=== PATIENT | female | born 1975 ===

== ENCOUNTER 2018-02-27 13:06 | Inpatient (IN) ==
[2018-02-27] MEDS ORDERED: DEXTROSE 50% 25 GM/50 ML VIAL IV PRN (15:39)
[2018-02-27] MEDS ORDERED: traZODone 50 MG TABLET PO PRN (15:39)
[2018-02-27] MEDS ORDERED: GLUCAGON 1 MG VIAL IM PRN (15:39)
[2018-02-27] MEDS: ENOXAPARIN 40 MG/0.4 ML SYRINGE SUBCUT SCH (16:43)
[2018-02-27] MEDS: INSULIN REGULAR 100 UNIT/ML SUBCUT SCH ×2 (16:44→20:21)
[2018-02-27 17:08] LABS: % Iron Saturation 5.8 % (18-50)
[2018-02-27 18:45] LABS: Apearance,Urine Slightly Hazy (Clear); Bacteria,Urine Occasional /HPF (Few); Bilirubin,Urine Negative (Negative); Blood, Urine Small mg/dL (Negative); Glucose,Urine (UA) 50 mg/dL (Negative); Hyaline Casts,Urine 3 /LPF (0-3); Ketones,Urine Negative (Negative); Mucus,Urine Occasional /LPF (Occasional); Nitrite,Urine Negative (Negative); Protein,Urine >=500 MG/DL; RBC,Urine 9 /HPF (0-4); Squamous Epithelial Cell,Urine Occasional /HPF (0-10); Urine Color Yellow (Yellow); Urine Specific Gravity 1.011 (1.001-1.035); Urine Urobilinogen < 2.0 EU/DL (0.2-1.0); WBC,Urine 1 /HPF (0-6)
[2018-02-27] MEDS: SIMVASTATIN 10 MG TABLET PO SCH (20:22)
[2018-02-28 06:27] LABS: Calcium 7.7 MG/DL (8.5-10.1); Osmolality,Calculated 280.5 MOS/KG (273-304); Potassium 3.7 MMOL/L (3.5-5.1)
[2018-02-28] MEDS: CLINDAMYCIN INJ 600 MG in PREMIX 1 EACH IV SCH ×2 (09:12→16:23)
[2018-02-28] MEDS: LISINOPRIL 10 MG TABLET PO SCH (09:12)
[2018-02-28] MEDS: INSULIN REGULAR 100 UNIT/ML SUBCUT SCH ×4 (09:13→20:56)
[2018-02-28] MEDS ORDERED: MIDAZOLAM 2 MG/2 ML VIAL ONE (11:05)
[2018-02-28] MEDS ORDERED: fentaNYL 100 MCG/2 ML VIAL ONE (11:05)
[2018-02-28] MEDS: ENOXAPARIN 40 MG/0.4 ML SYRINGE SUBCUT SCH (16:23)
[2018-02-28] MEDS: SIMVASTATIN 10 MG TABLET PO SCH (20:54)
[2018-03-01] MEDS: CLINDAMYCIN INJ 600 MG in PREMIX 1 EACH IV SCH ×4 (00:10→22:36)
[2018-03-01] MEDS: INSULIN REGULAR 100 UNIT/ML SUBCUT SCH ×4 (08:37→22:43)
[2018-03-01] MEDS: LISINOPRIL 10 MG TABLET PO SCH (10:16)
[2018-03-01] MEDS: ENOXAPARIN 40 MG/0.4 ML SYRINGE SUBCUT SCH (17:09)
[2018-03-01] MEDS: SIMVASTATIN 10 MG TABLET PO SCH (22:36)
[2018-03-02 05:45] LABS: Basophils % 0.5 % (0.0-0.8); Eosinophils # 0.1 10*3/uL (0.0-0.87); Eosinophils % 0.8 % (0.00-10.9); Hematocrit 21.7 VOL% (35.7-47.0); Hemoglobin 7.2 GM/DL (12.0-16.0); Immature Granulocytes % 0.6 %; Immature Granulocytes Absolute 0.05 #; Lymphocytes # 1.5 10*3/uL (1.4-4.0); Lymphocytes % 17.6 % (21.3-54.2); Mean Corpuscular HGB Conc 33.2 GM/DL (32-36); Mean Corpuscular Hemoglobin 29 PG (27-34); Mean Corpuscular Volume 87.1 FL (87-102); Mean Platelet Volume 9.5 FL (9.6-12.0); Monocytes # 1.1 10*3/uL (0.11-0.8); Monocytes % 13.1 % (1.7-12.7); NRBC # 0.02 10*3/uL; Neutrophils # 5.6 10*3/uL (1.4-7.4); Neutrophils % 67.4 % (38.7-73.9); Platelet Count 303 T/CUMM (130-400); Red Blood Count 2.49 MC/CUMM (3.8-5.5); Red Cell Distribution Width 12.3 % (9.3-17.3); White Blood Count 8.3 T/CUMM (4-12)
[2018-03-02 06:22] LABS: Calcium 7.9 MG/DL (8.5-10.1); Osmolality,Calculated 280.7 MOS/KG (273-304)
[2018-03-02 06:23] LABS: Potassium 4.3 MMOL/L (3.5-5.1)
[2018-03-02] MEDS: INSULIN REGULAR 100 UNIT/ML SUBCUT SCH ×4 (07:47→20:43)
[2018-03-02] MEDS: CLINDAMYCIN INJ 600 MG in PREMIX 1 EACH IV SCH ×3 (09:52→23:48)
[2018-03-02] MEDS: LISINOPRIL 10 MG TABLET PO SCH (09:52)
[2018-03-02] MEDS: cefTRIAXone 1,000 MG in SYRINGE 1 EACH IV SCH (14:23)
[2018-03-02] MEDS: IRON SUCROSE 200 MG in SODIUM CHLORIDE 0.9% 100 ML IV SCH (14:23)
[2018-03-02] MEDS: ONDANSETRON 4 MG/2 ML VIAL IV PRN (14:34)
[2018-03-02] MEDS: ENOXAPARIN 40 MG/0.4 ML SYRINGE SUBCUT SCH (15:15)
[2018-03-02] MEDS: SIMVASTATIN 10 MG TABLET PO SCH (20:43)
[2018-03-03 07:11] LABS: Protein/Creatinine Ratio,Urine 8.2 RATIO
[2018-03-03] MEDS: INSULIN REGULAR 100 UNIT/ML SUBCUT SCH ×4 (08:27→21:07)
[2018-03-03] MEDS: CLINDAMYCIN INJ 600 MG in PREMIX 1 EACH IV SCH ×3 (08:28→23:24)
[2018-03-03 08:31] LABS: Basophils % 0.3 % (0.0-0.8); Eosinophils # 0.1 10*3/uL (0.0-0.87); Hematocrit 23.1 VOL% (35.7-47.0); Hemoglobin 7.8 GM/DL (12.0-16.0); Immature Granulocytes % 0.6 %; Immature Granulocytes Absolute 0.04 #; Lymphocytes # 0.8 10*3/uL (1.4-4.0); Lymphocytes % 13.4 % (21.3-54.2); Mean Corpuscular HGB Conc 33.8 GM/DL (32-36); Mean Corpuscular Hemoglobin 29 PG (27-34); Mean Corpuscular Volume 85.9 FL (87-102); Monocytes # 0.7 10*3/uL (0.11-0.8); Monocytes % 11.2 % (1.7-12.7); Neutrophils # 4.6 10*3/uL (1.4-7.4); Neutrophils % 73.5 % (38.7-73.9); Platelet Count 320 T/CUMM (130-400); Red Blood Count 2.69 MC/CUMM (3.8-5.5); Red Cell Distribution Width 12.1 % (9.3-17.3); White Blood Count 6.3 T/CUMM (4-12)
[2018-03-03 08:37] LABS: INR 0.9; PT Patient Result 9.8 SECS
[2018-03-03] MEDS: IRON SUCROSE 200 MG in SODIUM CHLORIDE 0.9% 100 ML IV SCH (08:59)
[2018-03-03 09:11] LABS: Calcium 8.1 MG/DL (8.5-10.1); Osmolality,Calculated 280.7 MOS/KG (273-304); Potassium 4.4 MMOL/L (3.5-5.1)
[2018-03-03] MEDS: ALBUMIN 25% 25 GM in PREMIX 1 EACH IV SCH ×2 (14:32→21:11)
[2018-03-03] MEDS: cefTRIAXone 1,000 MG in SYRINGE 1 EACH IV SCH (16:17)
[2018-03-03] MEDS: ENOXAPARIN 40 MG/0.4 ML SYRINGE SUBCUT SCH (16:18)
[2018-03-03] MEDS: SIMVASTATIN 10 MG TABLET PO SCH (21:07)
[2018-03-04] MEDS: ALBUMIN 25% 25 GM in PREMIX 1 EACH IV SCH ×3 (05:31→20:58)
[2018-03-04 07:48] LABS: Basophils % 0.4 % (0.0-0.8); Eosinophils % 0.4 % (0.00-10.9); Hematocrit 21.1 VOL% (35.7-47.0); Immature Granulocytes % 0.6 %; Immature Granulocytes Absolute 0.04 #; Lymphocytes % 14.1 % (21.3-54.2); Mean Corpuscular HGB Conc 33.2 GM/DL (32-36); Mean Corpuscular Hemoglobin 29 PG (27-34); Mean Corpuscular Volume 87.2 FL (87-102); Mean Platelet Volume 9.2 FL (9.6-12.0); Monocytes # 0.8 10*3/uL (0.11-0.8); Monocytes % 11.4 % (1.7-12.7); Neutrophils # 4.9 10*3/uL (1.4-7.4); Neutrophils % 73.1 % (38.7-73.9); Platelet Count 271 T/CUMM (130-400); Red Blood Count 2.42 MC/CUMM (3.8-5.5); Red Cell Distribution Width 12.3 % (9.3-17.3); White Blood Count 6.8 T/CUMM (4-12)
[2018-03-04 08:21] LABS: Albumin 2.5 G/DL (3.4-5.0); Calcium 7.8 MG/DL (8.5-10.1); Osmolality,Calculated 278.8 MOS/KG (273-304); Potassium 4.1 MMOL/L (3.5-5.1)
[2018-03-04] MEDS: CLINDAMYCIN INJ 600 MG in PREMIX 1 EACH IV SCH ×2 (08:57→15:24)
[2018-03-04] MEDS: INSULIN REGULAR 100 UNIT/ML SUBCUT SCH ×4 (08:57→21:07)
[2018-03-04] MEDS: IRON SUCROSE 200 MG in SODIUM CHLORIDE 0.9% 100 ML IV SCH (10:16)
[2018-03-04] MEDS ORDERED: GLUCAGON 1 MG VIAL IM PRN (11:04)
[2018-03-04] MEDS ORDERED: DEXTROSE 50% 25 GM/50 ML VIAL IV PRN (11:04)
[2018-03-04] MEDS: cefTRIAXone 1,000 MG in SYRINGE 1 EACH IV SCH (15:23)
[2018-03-04] MEDS: ENOXAPARIN 30 MG/0.3 ML SYRINGE SUBCUT SCH (15:25)
[2018-03-04] MEDS: SIMVASTATIN 10 MG TABLET PO SCH (20:58)
[2018-03-05] MEDS: CLINDAMYCIN INJ 600 MG in PREMIX 1 EACH IV SCH ×4 (00:27→23:24)
[2018-03-05] MEDS: ALBUMIN 25% 25 GM in PREMIX 1 EACH IV SCH ×3 (05:50→20:45)
[2018-03-05 07:27] LABS: Basophils % 0.5 % (0.0-0.8); Eosinophils # 0.1 10*3/uL (0.0-0.87); Hematocrit 20.9 VOL% (35.7-47.0); Hemoglobin 7.2 GM/DL (12.0-16.0); Immature Granulocytes % 0.6 %; Immature Granulocytes Absolute 0.05 #; Lymphocytes # 0.9 10*3/uL (1.4-4.0); Lymphocytes % 11.4 % (21.3-54.2); Mean Corpuscular HGB Conc 34.4 GM/DL (32-36); Mean Corpuscular Hemoglobin 29 PG (27-34); Mean Corpuscular Volume 84.6 FL (87-102); Mean Platelet Volume 8.9 FL (9.6-12.0); Monocytes # 0.9 10*3/uL (0.11-0.8); Monocytes % 10.9 % (1.7-12.7); Neutrophils # 6.2 10*3/uL (1.4-7.4); Neutrophils % 75.6 % (38.7-73.9); Platelet Count 292 T/CUMM (130-400); Red Blood Count 2.47 MC/CUMM (3.8-5.5); Red Cell Distribution Width 12.4 % (9.3-17.3); White Blood Count 8.2 T/CUMM (4-12)
[2018-03-05 07:56] LABS: Albumin 2.9 G/DL (3.4-5.0); Calcium 7.9 MG/DL (8.5-10.1); Osmolality,Calculated 279.8 MOS/KG (273-304)
[2018-03-05] MEDS: INSULIN REGULAR 100 UNIT/ML SUBCUT SCH ×4 (08:38→21:49)
[2018-03-05] MEDS: IRON SUCROSE 200 MG in SODIUM CHLORIDE 0.9% 100 ML IV SCH (09:47)
[2018-03-05] MEDS: miSOPROStol 200 MCG TABLET PO SCH ×3 (12:46→20:44)
[2018-03-05] MEDS: cefTRIAXone 1,000 MG in SYRINGE 1 EACH IV SCH (14:29)
[2018-03-05] MEDS: ONDANSETRON 4 MG/2 ML VIAL IV PRN (14:48)
[2018-03-05] MEDS: ENOXAPARIN 30 MG/0.3 ML SYRINGE SUBCUT SCH (17:28)
[2018-03-05] MEDS: BISACODYL 5 MG TABLET PO PRN (17:30)
[2018-03-05] MEDS: SIMVASTATIN 10 MG TABLET PO SCH (20:45)
[2018-03-06] MEDS: ALBUMIN 25% 25 GM in PREMIX 1 EACH IV SCH (05:20)
[2018-03-06 06:06] LABS: Basophils % 0.4 % (0.0-0.8); Eosinophils % 0.4 % (0.00-10.9); Hemoglobin 7.5 GM/DL (12.0-16.0); Immature Granulocytes Absolute 0.09 #; Lymphocytes # 1.3 10*3/uL (1.4-4.0); Mean Corpuscular HGB Conc 34.1 GM/DL (32-36); Mean Corpuscular Hemoglobin 29 PG (27-34); Mean Corpuscular Volume 84.9 FL (87-102); Mean Platelet Volume 9.1 FL (9.6-12.0); Monocytes # 0.9 10*3/uL (0.11-0.8); Monocytes % 10.3 % (1.7-12.7); Neutrophils # 6.7 10*3/uL (1.4-7.4); Neutrophils % 73.9 % (38.7-73.9); Platelet Count 348 T/CUMM (130-400); Red Blood Count 2.59 MC/CUMM (3.8-5.5); Red Cell Distribution Width 12.6 % (9.3-17.3)
[2018-03-06 06:38] LABS: % Iron Saturation 29.3 % (18-50); Albumin 2.7 G/DL (3.4-5.0); Calcium 7.7 MG/DL (8.5-10.1); Potassium 3.7 MMOL/L (3.5-5.1)
[2018-03-06] MEDS: CLINDAMYCIN INJ 600 MG in PREMIX 1 EACH IV SCH ×3 (06:48→22:35)
[2018-03-06] MEDS: INSULIN REGULAR 100 UNIT/ML SUBCUT SCH ×4 (09:15→20:03)
[2018-03-06] MEDS: IRON SUCROSE 200 MG in SODIUM CHLORIDE 0.9% 100 ML IV SCH (09:16)
[2018-03-06] MEDS: miSOPROStol 200 MCG TABLET PO SCH ×4 (09:17→20:03)
[2018-03-06] MEDS: cefTRIAXone 1,000 MG in SYRINGE 1 EACH IV SCH (15:02)
[2018-03-06] MEDS: ENOXAPARIN 30 MG/0.3 ML SYRINGE SUBCUT SCH (16:50)
[2018-03-06] MEDS: SIMVASTATIN 10 MG TABLET PO SCH (20:03)
[2018-03-07 03:28] LABS: Basophils % 0.3 % (0.0-0.8); Eosinophils % 0.2 % (0.00-10.9); Hemoglobin 7.6 GM/DL (12.0-16.0); Immature Granulocytes % 1.2 %; Immature Granulocytes Absolute 0.13 #; Lymphocytes # 1.7 10*3/uL (1.4-4.0); Lymphocytes % 16.1 % (21.3-54.2); Mean Corpuscular HGB Conc 34.5 GM/DL (32-36); Mean Corpuscular Hemoglobin 29 PG (27-34); Mean Corpuscular Volume 84.9 FL (87-102); Mean Platelet Volume 8.9 FL (9.6-12.0); Monocytes # 1.2 10*3/uL (0.11-0.8); Neutrophils # 7.6 10*3/uL (1.4-7.4); Neutrophils % 71.2 % (38.7-73.9); Platelet Count 344 T/CUMM (130-400); Red Blood Count 2.59 MC/CUMM (3.8-5.5); Red Cell Distribution Width 12.5 % (9.3-17.3); White Blood Count 10.6 T/CUMM (4-12)
[2018-03-07 03:58] LABS: Calcium 8.2 MG/DL (8.5-10.1); Osmolality,Calculated 276.1 MOS/KG (273-304); Potassium 3.3 MMOL/L (3.5-5.1)
[2018-03-07] MEDS: CLINDAMYCIN INJ 600 MG in PREMIX 1 EACH IV SCH ×3 (08:00→22:36)
[2018-03-07] MEDS: INSULIN REGULAR 100 UNIT/ML SUBCUT SCH ×4 (08:02→20:07)
[2018-03-07] MEDS: miSOPROStol 200 MCG TABLET PO SCH ×4 (08:03→20:09)
[2018-03-07] MEDS: cefTRIAXone 1,000 MG in SYRINGE 1 EACH IV SCH (14:45)
[2018-03-07] MEDS: ENOXAPARIN 30 MG/0.3 ML SYRINGE SUBCUT SCH (16:25)
[2018-03-07] MEDS: SIMVASTATIN 10 MG TABLET PO SCH (20:09)
[2018-03-08 07:07] LABS: Basophils % 0.2 % (0.0-0.8); Eosinophils # 0.1 10*3/uL (0.0-0.87); Eosinophils % 0.8 % (0.00-10.9); Hematocrit 24.2 VOL% (35.7-47.0); Immature Granulocytes % 1.2 %; Immature Granulocytes Absolute 0.15 #; Lymphocytes # 1.7 10*3/uL (1.4-4.0); Lymphocytes % 13.5 % (21.3-54.2); Mean Corpuscular HGB Conc 33.1 GM/DL (32-36); Mean Corpuscular Hemoglobin 29 PG (27-34); Mean Corpuscular Volume 87.1 FL (87-102); Mean Platelet Volume 8.7 FL (9.6-12.0); Monocytes # 1.2 10*3/uL (0.11-0.8); Monocytes % 9.7 % (1.7-12.7); Neutrophils # 9.3 10*3/uL (1.4-7.4); Neutrophils % 74.6 % (38.7-73.9); Platelet Count 389 T/CUMM (130-400); Red Blood Count 2.78 MC/CUMM (3.8-5.5); Red Cell Distribution Width 12.5 % (9.3-17.3); White Blood Count 12.4 T/CUMM (4-12)
[2018-03-08 07:38] LABS: Calcium 8.5 MG/DL (8.5-10.1); Potassium 3.9 MMOL/L (3.5-5.1)
[2018-03-08] MEDS: miSOPROStol 200 MCG TABLET PO SCH ×3 (08:07→17:50)
[2018-03-08] MEDS: CLINDAMYCIN INJ 600 MG in PREMIX 1 EACH IV SCH ×3 (08:10→23:06)
[2018-03-08] MEDS: INSULIN REGULAR 100 UNIT/ML SUBCUT SCH ×4 (08:30→20:11)
[2018-03-08] MEDS: cefTRIAXone 1,000 MG in SYRINGE 1 EACH IV SCH (14:49)
[2018-03-08] MEDS: ENOXAPARIN 30 MG/0.3 ML SYRINGE SUBCUT SCH (15:04)
[2018-03-08] MEDS: SIMVASTATIN 10 MG TABLET PO SCH (20:09)
[2018-03-08] MEDS: miSOPROStol 100 MCG TABLET PO SCH (20:11)
[2018-03-09 05:23] LABS: Basophils # 0.1 10*3/uL (0.0-0.2); Basophils % 0.4 % (0.0-0.8); Eosinophils # 0.1 10*3/uL (0.0-0.87); Eosinophils % 1.1 % (0.00-10.9); Hematocrit 22.8 VOL% (35.7-47.0); Hemoglobin 7.8 GM/DL (12.0-16.0); Immature Granulocytes % 1.2 %; Immature Granulocytes Absolute 0.15 #; Lymphocytes # 1.6 10*3/uL (1.4-4.0); Lymphocytes % 12.9 % (21.3-54.2); Mean Corpuscular HGB Conc 34.2 GM/DL (32-36); Mean Corpuscular Hemoglobin 29 PG (27-34); Mean Corpuscular Volume 85.1 FL (87-102); Mean Platelet Volume 8.9 FL (9.6-12.0); Monocytes # 1.2 10*3/uL (0.11-0.8); Monocytes % 9.2 % (1.7-12.7); Neutrophils # 9.5 10*3/uL (1.4-7.4); Neutrophils % 75.2 % (38.7-73.9); Platelet Count 394 T/CUMM (130-400); Red Blood Count 2.68 MC/CUMM (3.8-5.5); Red Cell Distribution Width 12.7 % (9.3-17.3); White Blood Count 12.7 T/CUMM (4-12)
[2018-03-09 05:39] LABS: Calcium 8.2 MG/DL (8.5-10.1); Osmolality,Calculated 275.1 MOS/KG (273-304); Potassium 3.3 MMOL/L (3.5-5.1)
[2018-03-09] MEDS: INSULIN REGULAR 100 UNIT/ML SUBCUT SCH ×4 (08:00→23:32)
[2018-03-09] MEDS: miSOPROStol 100 MCG TABLET PO SCH ×4 (09:58→22:10)
[2018-03-09] MEDS: CLINDAMYCIN INJ 600 MG in PREMIX 1 EACH IV SCH (09:58)
[2018-03-09] MEDS ORDERED: POTASSIUM CHLORIDE 20 MEQ TABLET PO ONE (14:00)
[2018-03-09] MEDS: LEVOFLOXACIN 750 MG TABLET PO SCH (14:57)
[2018-03-09] MEDS: ENOXAPARIN 30 MG/0.3 ML SYRINGE SUBCUT SCH (14:59)
[2018-03-09] MEDS: IRON (CARBONYL) 45 MG TABLET PO SCH (22:09)
[2018-03-09] MEDS: SIMVASTATIN 10 MG TABLET PO SCH (22:09)
[2018-03-10 06:19] LABS: Basophils # 0.1 10*3/uL (0.0-0.2); Basophils % 0.4 % (0.0-0.8); Eosinophils # 0.1 10*3/uL (0.0-0.87); Eosinophils % 0.4 % (0.00-10.9); Hematocrit 22.8 VOL% (35.7-47.0); Hemoglobin 7.5 GM/DL (12.0-16.0); Immature Granulocytes % 1.2 %; Immature Granulocytes Absolute 0.17 #; Lymphocytes # 1.7 10*3/uL (1.4-4.0); Lymphocytes % 11.8 % (21.3-54.2); Mean Corpuscular HGB Conc 32.9 GM/DL (32-36); Mean Corpuscular Hemoglobin 29 PG (27-34); Monocytes # 1.3 10*3/uL (0.11-0.8); Monocytes % 9.1 % (1.7-12.7); Neutrophils # 10.8 10*3/uL (1.4-7.4); Neutrophils % 77.1 % (38.7-73.9); Platelet Count 417 T/CUMM (130-400); Red Blood Count 2.62 MC/CUMM (3.8-5.5); Red Cell Distribution Width 12.9 % (9.3-17.3)
[2018-03-10 06:45] LABS: Calcium 8.3 MG/DL (8.5-10.1); Osmolality,Calculated 274.2 MOS/KG (273-304)
[2018-03-10] MEDS: INSULIN REGULAR 100 UNIT/ML SUBCUT SCH ×4 (07:30→21:45)
[2018-03-10] MEDS: IRON (CARBONYL) 45 MG TABLET PO SCH ×2 (09:26→21:43)
[2018-03-10] MEDS: miSOPROStol 100 MCG TABLET PO SCH (09:26)
[2018-03-10] MEDS: ENOXAPARIN 30 MG/0.3 ML SYRINGE SUBCUT SCH (16:37)
[2018-03-10] MEDS: ACETYLCYSTEINE 600 MG CAPSULE PO SCH ×2 (16:37→21:43)
[2018-03-10] MEDS: miSOPROStol 200 MCG TABLET PO SCH ×2 (20:12→21:43)
[2018-03-10] MEDS: SIMVASTATIN 10 MG TABLET PO SCH (21:44)
[2018-03-11] MEDS: SODIUM BICARB INJ 100 MEQ in DEXTROSE 5% 1,000 ML IV SCH ×3 (00:19→22:25)
[2018-03-11 07:23] LABS: Basophils % 0.3 % (0.0-0.8); Eosinophils # 0.1 10*3/uL (0.0-0.87); Eosinophils % 0.5 % (0.00-10.9); Hematocrit 25.5 VOL% (35.7-47.0); Hemoglobin 8.5 GM/DL (12.0-16.0); Immature Granulocytes % 0.9 %; Immature Granulocytes Absolute 0.12 #; Lymphocytes # 1.7 10*3/uL (1.4-4.0); Lymphocytes % 12.8 % (21.3-54.2); Mean Corpuscular HGB Conc 33.3 GM/DL (32-36); Mean Corpuscular Hemoglobin 29 PG (27-34); Mean Corpuscular Volume 86.7 FL (87-102); Mean Platelet Volume 9.2 FL (9.6-12.0); Monocytes # 1.2 10*3/uL (0.11-0.8); Monocytes % 9.3 % (1.7-12.7); Neutrophils # 9.9 10*3/uL (1.4-7.4); Neutrophils % 76.2 % (38.7-73.9); Platelet Count 491 T/CUMM (130-400); Red Blood Count 2.94 MC/CUMM (3.8-5.5); Red Cell Distribution Width 12.9 % (9.3-17.3)
[2018-03-11 08:00] LABS: Calcium 8.1 MG/DL (8.5-10.1); Osmolality,Calculated 279.4 MOS/KG (273-304); Potassium 3.8 MMOL/L (3.5-5.1)
[2018-03-11] MEDS: INSULIN REGULAR 100 UNIT/ML SUBCUT SCH ×4 (09:21→22:22)
[2018-03-11] MEDS: miSOPROStol 200 MCG TABLET PO SCH ×4 (09:21→21:22)
[2018-03-11] MEDS ORDERED: HEPARIN/NACL 0.9% 2 UNITS/ML 2,000 ML IV ONE (09:39)
[2018-03-11] MEDS: IRON (CARBONYL) 45 MG TABLET PO SCH ×2 (11:03→21:22)
[2018-03-11] MEDS: LEVOFLOXACIN 750 MG TABLET PO SCH (11:03)
[2018-03-11] MEDS: ACETYLCYSTEINE 600 MG CAPSULE PO SCH ×2 (11:34→21:22)
[2018-03-11] MEDS ORDERED: fentaNYL 100 MCG/2 ML VIAL IV ONE (12:06)
[2018-03-11] MEDS ORDERED: DIAZEPAM 5 MG TABLET PO ONE (12:06)
[2018-03-11] MEDS ORDERED: MIDAZOLAM 2 MG/2 ML VIAL IV ONE (12:06)
[2018-03-11] MEDS ORDERED: HEPARIN LOCK FLUSH 500 UNIT/5 ML SYRINGE IV ONE (13:17)
[2018-03-11] MEDS ORDERED: fentaNYL 100 MCG/2 ML VIAL ONE (13:17)
[2018-03-11] MEDS ORDERED: MIDAZOLAM 2 MG/2 ML VIAL ONE (13:18)
[2018-03-11] MEDS ORDERED: HEPARIN/NACL 0.9% 2 UNITS/ML 1,000 ML IV ONE (13:53)
[2018-03-11] MEDS ORDERED: HEPARIN 5,000 UNIT/1 ML VIAL ONE (14:03)
[2018-03-11] MEDS ORDERED: HEPARIN 5,000 UNIT/1 ML VIAL IV ONE (14:10)
[2018-03-11] MEDS ORDERED: HEPARIN 1,000 UNIT/1 ML VIAL ONE (14:51)
[2018-03-11] MEDS ORDERED: HEPARIN 5,000 UNIT/1 ML VIAL IV PRN (14:57)
[2018-03-11] MEDS ORDERED: HEPARIN 10,000 UNIT/10 ML VIAL IV PRN (17:03)
[2018-03-11] MEDS: ENOXAPARIN 30 MG/0.3 ML SYRINGE SUBCUT SCH (17:46)
[2018-03-11 17:48] LABS: Hepatitis A Ab IgM Quant 0.16 Index; Hepatitis A Ab IgM Result Negative (Negative); Hepatitis B Core IgM Result Negative (Negative); Hepatitis B Surface Ag Quant < 0.10 Index; Hepatitis B Surface Ag Result Negative (Negative); Hepatitis C Virus Ab Quant 0.17 Index; Hepatitis C Virus Ab Result Negative (Negative)
[2018-03-11] MEDS: SIMVASTATIN 10 MG TABLET PO SCH (21:22)
[2018-03-12 06:55] LABS: Basophils % 0.2 % (0.0-0.8); Eosinophils % 0.4 % (0.00-10.9); Hematocrit 20.6 VOL% (35.7-47.0); Hemoglobin 6.8 GM/DL (12.0-16.0); Lymphocytes # 1.4 10*3/uL (1.4-4.0); Lymphocytes % 14.5 % (21.3-54.2); Mean Corpuscular Hemoglobin 29 PG (27-34); Mean Corpuscular Volume 87.3 FL (87-102); Mean Platelet Volume 9.4 FL (9.6-12.0); Monocytes # 0.8 10*3/uL (0.11-0.8); Monocytes % 7.9 % (1.7-12.7); Neutrophils # 7.5 10*3/uL (1.4-7.4); Platelet Count 324 T/CUMM (130-400); Red Blood Count 2.36 MC/CUMM (3.8-5.5); Red Cell Distribution Width 12.9 % (9.3-17.3); White Blood Count 9.8 T/CUMM (4-12)
[2018-03-12] MEDS ORDERED: SODIUM CHLORIDE 0.9% 1,000 ML IV PRN (07:08)
[2018-03-12 07:13] LABS: Albumin 1.9 G/DL (3.4-5.0); Calcium 7.4 MG/DL (8.5-10.1); Calcium 7.7 MG/DL (8.5-10.1); Osmolality,Calculated 274.1 MOS/KG (273-304); Potassium 3.3 MMOL/L (3.5-5.1); Potassium 3.6 MMOL/L (3.5-5.1)
[2018-03-12] MEDS: ACETYLCYSTEINE 600 MG CAPSULE PO SCH ×2 (11:04→22:00)
[2018-03-12] MEDS: IRON (CARBONYL) 45 MG TABLET PO SCH ×2 (11:04→22:00)
[2018-03-12] MEDS: INSULIN REGULAR 100 UNIT/ML SUBCUT SCH ×4 (11:04→22:01)
[2018-03-12] MEDS: miSOPROStol 200 MCG TABLET PO SCH ×4 (11:04→22:00)
[2018-03-12] MEDS: ASPIRIN EC 81 MG TABLET PO SCH (11:07)
[2018-03-12] MEDS: ONDANSETRON 4 MG/2 ML VIAL IV PRN (11:52)
[2018-03-12] MEDS ORDERED: ACETAMINOPHEN 500 MG TABLET PO ONE (12:36)
[2018-03-12] MEDS ORDERED: diphenhydrAMINE 50 MG/1 ML VIAL IV ONE (12:37)
[2018-03-12] MEDS ORDERED: diphenhydrAMINE 50 MG/1 ML VIAL ONE (12:38)
[2018-03-12] MEDS: ENOXAPARIN 30 MG/0.3 ML SYRINGE SUBCUT SCH (15:28)
[2018-03-12 15:42] LABS: Apearance,Urine CLOUDY (Clear); Bacteria,Urine Moderate /HPF (Few); Bilirubin,Urine Negative (Negative); Blood, Urine Small mg/dL (Negative); Glucose,Urine (UA) >=500 mg/dL (Negative); Ketones,Urine 5 mg/dL (Negative); Mucus,Urine Occasional /LPF (Occasional); Nitrite,Urine Negative (Negative); Protein,Urine >=500 MG/DL; RBC,Urine 5 /HPF (0-4); Squamous Epithelial Cell,Urine Occasional /HPF (0-10); Urine Color Yellow (Yellow); Urine Specific Gravity 1.026 (1.001-1.035); Urine Urobilinogen < 2.0 EU/DL (0.2-1.0); WBC,Urine <1 /HPF (0-6)
[2018-03-12 19:42] LABS: Hematocrit 23.6 VOL% (35.7-47.0); Hemoglobin 7.9 GM/DL (12.0-16.0)
[2018-03-12] MEDS: ATORVASTATIN 20 MG TABLET PO SCH (22:00)
[2018-03-13 07:02] LABS: Basophils % 0.2 % (0.0-0.8); Eosinophils # 0.1 10*3/uL (0.0-0.87); Eosinophils % 0.8 % (0.00-10.9); Hematocrit 23.9 VOL% (35.7-47.0); Hemoglobin 8.2 GM/DL (12.0-16.0); Immature Granulocytes % 0.9 %; Immature Granulocytes Absolute 0.08 #; Lymphocytes # 2.2 10*3/uL (1.4-4.0); Lymphocytes % 25.3 % (21.3-54.2); Mean Corpuscular HGB Conc 34.3 GM/DL (32-36); Mean Corpuscular Hemoglobin 30 PG (27-34); Mean Platelet Volume 9.5 FL (9.6-12.0); Monocytes # 1.1 10*3/uL (0.11-0.8); Monocytes % 12.4 % (1.7-12.7); Neutrophils # 5.3 10*3/uL (1.4-7.4); Neutrophils % 60.4 % (38.7-73.9); Platelet Count 280 T/CUMM (130-400); Red Blood Count 2.78 MC/CUMM (3.8-5.5); Red Cell Distribution Width 12.9 % (9.3-17.3); White Blood Count 8.8 T/CUMM (4-12)
[2018-03-13 07:22] LABS: Albumin 2.1 G/DL (3.4-5.0); Calcium 7.6 MG/DL (8.5-10.1); Osmolality,Calculated 273.8 MOS/KG (273-304); Potassium 3.2 MMOL/L (3.5-5.1)
[2018-03-13] MEDS: INSULIN REGULAR 100 UNIT/ML SUBCUT SCH ×4 (08:45→21:02)
[2018-03-13] MEDS ORDERED: POTASSIUM CHLORIDE 20 MEQ TABLET PO PRN (09:28)
[2018-03-13] MEDS: miSOPROStol 200 MCG TABLET PO SCH ×2 (09:29→13:06)
[2018-03-13] MEDS: ACETYLCYSTEINE 600 MG CAPSULE PO SCH ×2 (09:29→20:47)
[2018-03-13] MEDS: IRON (CARBONYL) 45 MG TABLET PO SCH ×2 (09:30→20:47)
[2018-03-13] MEDS: LEVOFLOXACIN 750 MG TABLET PO SCH (09:30)
[2018-03-13] MEDS: ASPIRIN EC 81 MG TABLET PO SCH (09:30)
[2018-03-13] MEDS: glyBURIDE 5 MG TABLET PO SCH (09:30)
[2018-03-13] MEDS ORDERED: EPOETIN ALFA 10,000 UNIT/1 ML VIAL IV ONE (09:50)
[2018-03-13] MEDS ORDERED: POTASSIUM CHLORIDE 20 MEQ TABLET PO ONE (11:35)
[2018-03-13] MEDS: ENOXAPARIN 30 MG/0.3 ML SYRINGE SUBCUT SCH (17:20)
[2018-03-13] MEDS: ATORVASTATIN 20 MG TABLET PO SCH (20:47)
[2018-03-14 06:11] LABS: Basophils % 0.4 % (0.0-0.8); Eosinophils # 0.1 10*3/uL (0.0-0.87); Eosinophils % 0.8 % (0.00-10.9); Hematocrit 24.1 VOL% (35.7-47.0); Hemoglobin 8.2 GM/DL (12.0-16.0); Immature Granulocytes % 1.2 %; Immature Granulocytes Absolute 0.12 #; Lymphocytes # 1.7 10*3/uL (1.4-4.0); Lymphocytes % 17.3 % (21.3-54.2); Mean Corpuscular Hemoglobin 29 PG (27-34); Mean Corpuscular Volume 85.8 FL (87-102); Monocytes # 1.3 10*3/uL (0.11-0.8); Monocytes % 12.6 % (1.7-12.7); Neutrophils # 6.7 10*3/uL (1.4-7.4); Neutrophils % 67.7 % (38.7-73.9); Platelet Count 279 T/CUMM (130-400); Red Blood Count 2.81 MC/CUMM (3.8-5.5); Red Cell Distribution Width 12.6 % (9.3-17.3); White Blood Count 9.9 T/CUMM (4-12)
[2018-03-14 06:26] LABS: Albumin 1.9 G/DL (3.4-5.0); Calcium 8.2 MG/DL (8.5-10.1); Osmolality,Calculated 274.5 MOS/KG (273-304); Potassium 3.6 MMOL/L (3.5-5.1)
[2018-03-14] MEDS: INSULIN REGULAR 100 UNIT/ML SUBCUT SCH ×4 (09:11→20:06)
[2018-03-14] MEDS: glyBURIDE 5 MG TABLET PO SCH (09:13)
[2018-03-14] MEDS: ACETYLCYSTEINE 600 MG CAPSULE PO SCH (09:13)
[2018-03-14] MEDS: ASPIRIN EC 81 MG TABLET PO SCH (09:13)
[2018-03-14] MEDS: IRON (CARBONYL) 45 MG TABLET PO SCH ×2 (09:14→20:06)
[2018-03-14] MEDS: ENOXAPARIN 30 MG/0.3 ML SYRINGE SUBCUT SCH (17:25)
[2018-03-14] MEDS: ATORVASTATIN 20 MG TABLET PO SCH (20:06)
[2018-03-15] MEDS: INSULIN REGULAR 100 UNIT/ML SUBCUT SCH ×4 (07:35→21:52)
[2018-03-15] MEDS: glyBURIDE 5 MG TABLET PO SCH (08:01)
[2018-03-15] MEDS: IRON (CARBONYL) 45 MG TABLET PO SCH ×2 (09:17→21:51)
[2018-03-15] MEDS: ASPIRIN EC 81 MG TABLET PO SCH (09:17)
[2018-03-15] MEDS: LEVOFLOXACIN 750 MG TABLET PO SCH (09:17)
[2018-03-15] MEDS: ENOXAPARIN 30 MG/0.3 ML SYRINGE SUBCUT SCH (16:01)
[2018-03-15] MEDS: ATORVASTATIN 20 MG TABLET PO SCH (21:51)
[2018-03-16] MEDS ORDERED: CLINDAMYCIN INJ 900 MG in PREMIX 1 EACH IV ONE (06:00)
[2018-03-16 06:44] LABS: Basophils # 0.1 10*3/uL (0.0-0.2); Basophils % 0.5 % (0.0-0.8); Eosinophils # 0.1 10*3/uL (0.0-0.87); Eosinophils % 0.7 % (0.00-10.9); Hematocrit 26.9 VOL% (35.7-47.0); Hemoglobin 8.9 GM/DL (12.0-16.0); Immature Granulocytes % 0.8 %; Immature Granulocytes Absolute 0.09 #; Lymphocytes # 1.7 10*3/uL (1.4-4.0); Lymphocytes % 15.6 % (21.3-54.2); Mean Corpuscular HGB Conc 33.1 GM/DL (32-36); Mean Corpuscular Hemoglobin 30 PG (27-34); Mean Corpuscular Volume 89.4 FL (87-102); Mean Platelet Volume 9.1 FL (9.6-12.0); Monocytes # 1.2 10*3/uL (0.11-0.8); Monocytes % 10.4 % (1.7-12.7); NRBC # 0.02 10*3/uL; Platelet Count 366 T/CUMM (130-400); Red Blood Count 3.01 MC/CUMM (3.8-5.5); Red Cell Distribution Width 13.1 % (9.3-17.3); White Blood Count 11.1 T/CUMM (4-12)
[2018-03-16 06:54] LABS: PT Patient Result 10.7 SECS
[2018-03-16 07:13] LABS: Albumin 2.2 G/DL (3.4-5.0); Calcium 8.5 MG/DL (8.5-10.1); Osmolality,Calculated 278.4 MOS/KG (273-304); Potassium 3.9 MMOL/L (3.5-5.1)
[2018-03-16] MEDS: INSULIN REGULAR 100 UNIT/ML SUBCUT SCH ×4 (08:07→20:46)
[2018-03-16] MEDS: glyBURIDE 5 MG TABLET PO SCH (08:08)
[2018-03-16] MEDS: ASPIRIN EC 81 MG TABLET PO SCH (09:08)
[2018-03-16] MEDS: IRON (CARBONYL) 45 MG TABLET PO SCH ×2 (09:08→20:19)
[2018-03-16] MEDS ORDERED: PROPOFOL 200 MG/20 ML VIAL IV ONE (12:19)
[2018-03-16] MEDS ORDERED: SEVOFLURANE 1 UNIT/15 MINUTE INH ONE (12:20)
[2018-03-16] MEDS ORDERED: ONDANSETRON 4 MG/2 ML VIAL ONE ×2 (12:20→12:32)
[2018-03-16] MEDS ORDERED: MIDAZOLAM 2 MG/2 ML VIAL ONE (12:20)
[2018-03-16] MEDS ORDERED: KETOROLAC 30 MG/1 ML VIAL ONE (12:20)
[2018-03-16] MEDS ORDERED: DEXAMETHASONE 10 MG/1 ML VIAL ONE (12:20)
[2018-03-16] MEDS ORDERED: fentaNYL 100 MCG/2 ML VIAL ONE (12:20)
[2018-03-16] MEDS ORDERED: PHENYLEPHRINE 1 MG/10 ML SYRINGE IV ONE (12:21)
[2018-03-16] MEDS ORDERED: SODIUM CHLORIDE 0.9% 250 ML IV ONE (12:21)
[2018-03-16] MEDS ORDERED: ONDANSETRON 4 MG/2 ML VIAL IV PRN (12:29)
[2018-03-16] MEDS ORDERED: MORPHINE 10 MG/1 ML VIAL ONE (12:32)
[2018-03-16] MEDS: MORPHINE 10 MG/1 ML VIAL IV PRN ×2 (12:35→12:47)
[2018-03-16] MEDS: GABAPENTIN 100 MG CAPSULE PO SCH ×2 (14:16→20:19)
[2018-03-16] MEDS: MORPHINE 4 MG/1 ML VIAL IV PRN ×2 (15:43→20:19)
[2018-03-16] MEDS: ENOXAPARIN 30 MG/0.3 ML SYRINGE SUBCUT SCH (15:59)
[2018-03-16] MEDS: ATORVASTATIN 20 MG TABLET PO SCH (20:19)
[2018-03-17 05:50] LABS: Basophils % 0.1 % (0.0-0.8); Hematocrit 25.4 VOL% (35.7-47.0); Hemoglobin 8.5 GM/DL (12.0-16.0); Immature Granulocytes Absolute 0.08 #; Lymphocytes # 0.8 10*3/uL (1.4-4.0); Lymphocytes % 10.1 % (21.3-54.2); Mean Corpuscular HGB Conc 33.5 GM/DL (32-36); Mean Corpuscular Hemoglobin 29 PG (27-34); Mean Platelet Volume 9.4 FL (9.6-12.0); Monocytes # 0.8 10*3/uL (0.11-0.8); Monocytes % 9.8 % (1.7-12.7); NRBC # 0.02 10*3/uL; Neutrophils # 6.4 10*3/uL (1.4-7.4); Platelet Count 389 T/CUMM (130-400); Red Blood Count 2.92 MC/CUMM (3.8-5.5); Red Cell Distribution Width 13.2 % (9.3-17.3); White Blood Count 8.1 T/CUMM (4-12)
[2018-03-17 06:07] LABS: Albumin 1.9 G/DL (3.4-5.0); Osmolality,Calculated 286.8 MOS/KG (273-304); Potassium 4.4 MMOL/L (3.5-5.1)
[2018-03-17] MEDS: IRON (CARBONYL) 45 MG TABLET PO SCH ×2 (08:47→20:16)
[2018-03-17] MEDS: ASPIRIN EC 81 MG TABLET PO SCH (08:47)
[2018-03-17] MEDS: INSULIN REGULAR 100 UNIT/ML SUBCUT SCH ×4 (08:47→20:16)
[2018-03-17] MEDS: LOSARTAN 25 MG TABLET PO SCH (08:47)
[2018-03-17] MEDS: glyBURIDE 5 MG TABLET PO SCH (08:47)
[2018-03-17] MEDS: LEVOFLOXACIN 750 MG TABLET PO SCH (08:48)
[2018-03-17] MEDS: hydroCHLOROthiazide 25 MG TABLET PO SCH (08:48)
[2018-03-17] MEDS: GABAPENTIN 100 MG CAPSULE PO SCH ×3 (08:48→20:16)
[2018-03-17] MEDS: MORPHINE 4 MG/1 ML VIAL IV PRN ×2 (16:37→20:15)
[2018-03-17] MEDS: ENOXAPARIN 30 MG/0.3 ML SYRINGE SUBCUT SCH (16:38)
[2018-03-17] MEDS: glyBURIDE/METFORMIN 5-500 MG TABLET PO SCH (17:57)
[2018-03-17] MEDS: ATORVASTATIN 20 MG TABLET PO SCH (20:16)
[2018-03-18] MEDS: ONDANSETRON 4 MG/2 ML VIAL IV PRN (01:44)
[2018-03-18 07:07] LABS: Basophils % 0.3 % (0.0-0.8); Eosinophils # 0.1 10*3/uL (0.0-0.87); Eosinophils % 0.8 % (0.00-10.9); Hematocrit 24.9 VOL% (35.7-47.0); Hemoglobin 8.1 GM/DL (12.0-16.0); Immature Granulocytes % 0.7 %; Immature Granulocytes Absolute 0.05 #; Lymphocytes # 1.9 10*3/uL (1.4-4.0); Lymphocytes % 26.6 % (21.3-54.2); Mean Corpuscular HGB Conc 32.5 GM/DL (32-36); Mean Corpuscular Hemoglobin 29 PG (27-34); Mean Corpuscular Volume 89.6 FL (87-102); Mean Platelet Volume 8.8 FL (9.6-12.0); Monocytes # 0.8 10*3/uL (0.11-0.8); Monocytes % 10.8 % (1.7-12.7); Neutrophils # 4.4 10*3/uL (1.4-7.4); Neutrophils % 60.8 % (38.7-73.9); Platelet Count 390 T/CUMM (130-400); Red Blood Count 2.78 MC/CUMM (3.8-5.5); Red Cell Distribution Width 13.7 % (9.3-17.3); White Blood Count 7.3 T/CUMM (4-12)
[2018-03-18 07:45] LABS: Calcium 7.8 MG/DL (8.5-10.1)
[2018-03-18] MEDS: INSULIN REGULAR 100 UNIT/ML SUBCUT SCH ×4 (08:54→20:09)
[2018-03-18] MEDS: hydroCHLOROthiazide 25 MG TABLET PO SCH (10:22)
[2018-03-18] MEDS: IRON (CARBONYL) 45 MG TABLET PO SCH ×2 (10:22→20:05)
[2018-03-18] MEDS: glyBURIDE/METFORMIN 5-500 MG TABLET PO SCH (10:22)
[2018-03-18] MEDS: LOSARTAN 25 MG TABLET PO SCH (10:22)
[2018-03-18] MEDS: ASPIRIN EC 81 MG TABLET PO SCH (10:22)
[2018-03-18] MEDS: GABAPENTIN 100 MG CAPSULE PO SCH ×3 (10:23→20:09)
[2018-03-18] MEDS: ENOXAPARIN 30 MG/0.3 ML SYRINGE SUBCUT SCH (15:41)
[2018-03-18] MEDS: MORPHINE 4 MG/1 ML VIAL IV PRN ×2 (20:03→23:55)
[2018-03-18] MEDS: BISACODYL 5 MG TABLET PO PRN (20:05)
[2018-03-18] MEDS: ATORVASTATIN 20 MG TABLET PO SCH (20:05)
[2018-03-19] MEDS: MORPHINE 4 MG/1 ML VIAL IV PRN (06:16)
[2018-03-19] MEDS ORDERED: GABAPENTIN 100 MG CAPSULE PO SCH (09:00)
[2018-03-19] MEDS: INSULIN REGULAR 100 UNIT/ML SUBCUT SCH ×2 (10:05→15:15)
[2018-03-19] MEDS: glyBURIDE/METFORMIN 5-500 MG TABLET PO SCH (10:06)
[2018-03-19] MEDS: LOSARTAN 25 MG TABLET PO SCH (10:06)
[2018-03-19] MEDS: IRON (CARBONYL) 45 MG TABLET PO SCH (10:06)
[2018-03-19] MEDS: hydroCHLOROthiazide 25 MG TABLET PO SCH (10:06)
[2018-03-19] MEDS: LEVOFLOXACIN 750 MG TABLET PO SCH (10:06)
[2018-03-19] MEDS: ASPIRIN EC 81 MG TABLET PO SCH (10:06)
[2018-03-19 12:39] VITALS: BP 140/71
== END 2018-03-19 14:45 | DRG 617 ==
LOC: SUATTDRO 13:11 → N.5E 14:35
PROVIDERS: ADMIT Internal Medicine; ATTEND Internal Medicine

== ENCOUNTER 2018-04-10 06:43 | Inpatient (IN) ==
[2018-04-08 16:31] LABS: Basophils % 0.3 % (0.0-0.8); Eosinophils % 0.1 % (0.00-10.9); Hematocrit 31.2 VOL% (35.7-47.0); Hemoglobin 10.6 GM/DL (12.0-16.0); Immature Granulocytes % 0.7 %; Lymphocytes # 0.9 10*3/uL (1.4-4.0); Lymphocytes % 5.9 % (21.3-54.2); Mean Corpuscular Hemoglobin 29 PG (27-34); Mean Corpuscular Volume 84.1 FL (87-102); Mean Platelet Volume 9.6 FL (9.6-12.0); Monocytes % 7.3 % (1.7-12.7); Neutrophils # 12.3 10*3/uL (1.4-7.4); Neutrophils % 85.7 % (38.7-73.9); Platelet Count 561 T/CUMM (130-400); Red Blood Count 3.71 MC/CUMM (3.8-5.5); White Blood Count 14.3 T/CUMM (4-12)
[2018-04-08 16:57] LABS: Calcium 8.7 MG/DL (8.5-10.1); Osmolality,Calculated 293.2 MOS/KG (273-304); Potassium 3.7 MMOL/L (3.5-5.1)
[2018-04-10] MEDS ORDERED: SODIUM CHLORIDE 0.9% 1,000 ML IV SCH ×3 (08:00→09:00)
[2018-04-10] MEDS ORDERED: LACTATED RINGERS 1,000 ML IV SCH (08:00)
[2018-04-10] MEDS ORDERED: MORPHINE 4 MG/1 ML VIAL IV ONE (08:33)
[2018-04-10] MEDS ORDERED: INSULIN REGULAR 100 UNIT/ML IV ONE ×5 (08:37→17:11)
[2018-04-10] MEDS ORDERED: MORPHINE 10 MG/1 ML VIAL ONE ×2 (08:39→14:09)
[2018-04-10] MEDS ORDERED: INSULIN REGULAR 100 UNIT/ML ONE ×3 (08:39→16:04)
[2018-04-10 08:55] LABS: Calcium 8.7 MG/DL (8.5-10.1); Osmolality,Calculated 288.4 MOS/KG (273-304); Potassium 3.6 MMOL/L (3.5-5.1)
[2018-04-10] MEDS ORDERED: SODIUM CHLORIDE 0.9% 500 ML IV ONE (08:56)
[2018-04-10] MEDS ORDERED: ACETAMINOPHEN 325 MG TABLET PO PRN (08:59)
[2018-04-10 09:06] LABS: Basophils % 0.1 % (0.0-0.8); Hematocrit 28.4 VOL% (35.7-47.0); Hemoglobin 9.3 GM/DL (12.0-16.0); Immature Granulocytes % 0.8 %; Immature Granulocytes Absolute 0.14 #; Lymphocytes # 0.8 10*3/uL (1.4-4.0); Lymphocytes % 4.4 % (21.3-54.2); Mean Corpuscular HGB Conc 32.7 GM/DL (32-36); Mean Corpuscular Hemoglobin 28 PG (27-34); Mean Corpuscular Volume 86.1 FL (87-102); Mean Platelet Volume 9.7 FL (9.6-12.0); Monocytes # 0.2 10*3/uL (0.11-0.8); Monocytes % 0.9 % (1.7-12.7); Neutrophils % 93.8 % (38.7-73.9); Platelet Count 485 T/CUMM (130-400); Red Cell Distribution Width 13.2 % (9.3-17.3); White Blood Count 18.1 T/CUMM (4-12)
[2018-04-10] MEDS ORDERED: BISACODYL 5 MG TABLET PO PRN (09:06)
[2018-04-10] MEDS ORDERED: DEXTROSE 50% 25 GM/50 ML VIAL IV PRN ×2 (09:17→16:46)
[2018-04-10] MEDS ORDERED: GLUCAGON 1 MG VIAL IM PRN ×2 (09:17→16:46)
[2018-04-10] MEDS ORDERED: MAGNESIUM SULF RIDER 2 GM in PREMIX 1 EACH IV ONE (09:22)
[2018-04-10 09:25] LABS: Band Neutrophils 1 % (0-10); Lymphocytes 6 % (20-55); Segmented Neutrophils 93 % (50-85); Total Cells Counted 100
[2018-04-10 09:26] LABS: Hypochromasia 1+; Microcytosis Slight; Platelet Estimate Increased
[2018-04-10] MEDS: PIPERACILLIN/TAZOBACTAM 3,375 MG in SODIUM CHLORIDE 0.9% 100 ML IV SCH ×2 (10:02→18:39)
[2018-04-10] MEDS ORDERED: INSULIN REGULAR 100 UNIT/ML IV STA ×2 (10:06→10:44)
[2018-04-10] MEDS ORDERED: INSULIN REGULAR 100 UNIT/ML SUBCUT SCH ×2 (11:30→16:46)
[2018-04-10] MEDS: LINEZOLID INJ 600 MG in PREMIX 1 EACH IV SCH ×2 (12:35→22:30)
[2018-04-10 13:02] LABS: Calcium 8.3 MG/DL (8.5-10.1); Potassium 3.2 MMOL/L (3.5-5.1)
[2018-04-10] MEDS ORDERED: ONDANSETRON 4 MG/2 ML VIAL ONE (14:09)
[2018-04-10] MEDS: POTASSIUM CHLORIDE RIDER 10 MEQ in PREMIX 1 EACH IV PRN ×4 (14:28→22:30)
[2018-04-10] MEDS ORDERED: ONDANSETRON 4 MG/2 ML VIAL IV PRN (16:04)
[2018-04-10] MEDS ORDERED: HYDROmorphone 2 MG/1 ML VIAL IV PRN (16:04)
[2018-04-10] MEDS: ONDANSETRON 4 MG/2 ML VIAL IV PRN (16:10)
[2018-04-10] MEDS: SODIUM CHLOR 0.9% KCL 40 MEQ 40 MEQ/1,000 ML BAG IV SCH (17:04)
[2018-04-10] MEDS ORDERED: PROPOFOL 200 MG/20 ML VIAL IV ONE (17:49)
[2018-04-10] MEDS ORDERED: SEVOFLURANE 1 UNIT/15 MINUTE INH ONE (17:49)
[2018-04-10] MEDS ORDERED: PHENYLEPHRINE 1 MG/10 ML SYRINGE IV ONE (17:50)
[2018-04-10] MEDS ORDERED: MIDAZOLAM 2 MG/2 ML VIAL ONE (17:50)
[2018-04-10 17:53] LABS: Calcium 8.4 MG/DL (8.5-10.1); Potassium 3.2 MMOL/L (3.5-5.1)
[2018-04-10] MEDS: INSULIN REGULAR 100 UNIT/ML SUBCUT SCH ×4 (18:02→21:10)
[2018-04-10] MEDS: INSULIN ASPART PROTAMINE/ASPART 70/30 100 UNIT/ML SUBCUT SCH (19:03)
[2018-04-10] MEDS: POTASSIUM CHLORIDE RIDER 10 MEQ in PREMIX 1 EACH IV SCH ×4 (19:07→19:29)
[2018-04-10] MEDS: GABAPENTIN 100 MG CAPSULE PO SCH (20:24)
[2018-04-10] MEDS: IRON (CARBONYL) 45 MG TABLET PO SCH (20:24)
[2018-04-10] MEDS: ATORVASTATIN 10 MG TABLET PO SCH (20:24)
[2018-04-10] MEDS: INSULIN GLARGINE 100 UNIT/ML SUBCUT SCH (21:09)
[2018-04-10 23:08] LABS: Calcium 8.2 MG/DL (8.5-10.1); Osmolality,Calculated 284.4 MOS/KG (273-304); Potassium 4.1 MMOL/L (3.5-5.1)
[2018-04-11 00:02] LABS: Apearance,Urine Slightly Hazy (Clear); Bacteria,Urine Occasional /HPF (Few); Bilirubin,Urine Negative (Negative); Blood, Urine Small mg/dL (Negative); Glucose,Urine (UA) >=500 mg/dL (Negative); Granular Casts,Urine 1 /LPF (0-1); Hyaline Casts,Urine 11 /LPF (0-3); Ketones,Urine 5 mg/dL (Negative); Nitrite,Urine Negative (Negative); Protein,Urine >=500 MG/DL; RBC,Urine 2 /HPF (0-4); Squamous Epithelial Cell,Urine Occasional /HPF (0-10); Urine Color Yellow (Yellow); Urine Specific Gravity 1.013 (1.001-1.035); Urine Urobilinogen < 2.0 EU/DL (0.2-1.0); WBC,Urine 5 /HPF (0-6)
[2018-04-11] MEDS: PIPERACILLIN/TAZOBACTAM 3,375 MG in SODIUM CHLORIDE 0.9% 100 ML IV SCH ×3 (01:17→18:08)
[2018-04-11] MEDS: INSULIN REGULAR 100 UNIT/ML SUBCUT SCH ×6 (04:28→23:32)
[2018-04-11 06:27] LABS: Basophils % 0.2 % (0.0-0.8); Eosinophils # 0.1 10*3/uL (0.0-0.87); Eosinophils % 0.5 % (0.00-10.9); Hematocrit 26.1 VOL% (35.7-47.0); Hemoglobin 8.7 GM/DL (12.0-16.0); Immature Granulocytes % 1.1 %; Immature Granulocytes Absolute 0.17 #; Lymphocytes # 1.1 10*3/uL (1.4-4.0); Lymphocytes % 6.6 % (21.3-54.2); Mean Corpuscular HGB Conc 33.3 GM/DL (32-36); Mean Corpuscular Hemoglobin 28 PG (27-34); Mean Corpuscular Volume 84.7 FL (87-102); Mean Platelet Volume 9.6 FL (9.6-12.0); Monocytes # 1.2 10*3/uL (0.11-0.8); Monocytes % 7.2 % (1.7-12.7); Neutrophils # 13.5 10*3/uL (1.4-7.4); Neutrophils % 84.4 % (38.7-73.9); Platelet Count 430 T/CUMM (130-400); Red Blood Count 3.08 MC/CUMM (3.8-5.5); Red Cell Distribution Width 13.5 % (9.3-17.3)
[2018-04-11 06:55] LABS: Calcium 8.3 MG/DL (8.5-10.1); Potassium 3.8 MMOL/L (3.5-5.1)
[2018-04-11 07:04] LABS: Albumin 1.2 G/DL (3.4-5.0); Bilirubin,Total 0.4 MG/DL (0.2-1.0); Calcium 8.2 MG/DL (8.5-10.1); Osmolality,Calculated 281.1 MOS/KG (273-304); Potassium 3.7 MMOL/L (3.5-5.1); Total Protein 6.2 G/DL (6.4-8.3)
[2018-04-11] MEDS ORDERED: cefOXitin 2,000 MG in SYRINGE 1 EACH IV ONE (08:00)
[2018-04-11] MEDS ORDERED: FAMOTIDINE 20 MG TABLET PO ONE (08:05)
[2018-04-11] MEDS: PANTOPRAZOLE 40 MG TABLET PO SCH ×2 (08:46→15:26)
[2018-04-11] MEDS: ONDANSETRON 4 MG/2 ML VIAL IV PRN (09:00)
[2018-04-11] MEDS: IRON (CARBONYL) 45 MG TABLET PO SCH ×2 (09:00→20:38)
[2018-04-11] MEDS: LINEZOLID INJ 600 MG in PREMIX 1 EACH IV SCH ×2 (09:48→22:30)
[2018-04-11] MEDS ORDERED: PROPOFOL 200 MG/20 ML VIAL IV ONE (13:24)
[2018-04-11] MEDS ORDERED: SEVOFLURANE 1 UNIT/15 MINUTE INH ONE (13:24)
[2018-04-11] MEDS ORDERED: PHENYLEPHRINE 1 MG/10 ML SYRINGE IV ONE (13:25)
[2018-04-11] MEDS ORDERED: fentaNYL 100 MCG/2 ML VIAL ONE (13:25)
[2018-04-11] MEDS ORDERED: MIDAZOLAM 2 MG/2 ML VIAL ONE (13:25)
[2018-04-11] MEDS ORDERED: ONDANSETRON 4 MG/2 ML VIAL IV PRN (13:38)
[2018-04-11] MEDS ORDERED: HYDROmorphone 2 MG/1 ML VIAL IV PRN (13:38)
[2018-04-11] MEDS: INSULIN ASPART PROTAMINE/ASPART 70/30 100 UNIT/ML SUBCUT SCH (14:35)
[2018-04-11 16:49] LABS: Osmolality,Calculated 279.1 MOS/KG (273-304)
[2018-04-11] MEDS: POTASSIUM CHLORIDE RIDER 10 MEQ in PREMIX 1 EACH IV PRN (16:51)
[2018-04-11 17:32] LABS: Calcium 8.2 MG/DL (8.5-10.1); Potassium 4.1 MMOL/L (3.5-5.1)
[2018-04-11] MEDS: MORPHINE 4 MG/1 ML VIAL IV PRN ×2 (20:32→23:38)
[2018-04-11] MEDS: INSULIN GLARGINE 100 UNIT/ML SUBCUT SCH (20:36)
[2018-04-11] MEDS: ATORVASTATIN 10 MG TABLET PO SCH (20:38)
[2018-04-11] MEDS: GABAPENTIN 100 MG CAPSULE PO SCH (20:39)
[2018-04-11] MEDS ORDERED: ENOXAPARIN 30 MG/0.3 ML SYRINGE SUBCUT ONE (21:27)
[2018-04-12] MEDS: SODIUM CHLOR 0.9% KCL 40 MEQ 40 MEQ/1,000 ML BAG IV SCH (04:15)
[2018-04-12] MEDS: PIPERACILLIN/TAZOBACTAM 3,375 MG in SODIUM CHLORIDE 0.9% 100 ML IV SCH ×3 (04:19→21:19)
[2018-04-12] MEDS: INSULIN REGULAR 100 UNIT/ML SUBCUT SCH ×5 (05:03→21:13)
[2018-04-12] MEDS: MORPHINE 4 MG/1 ML VIAL IV PRN (05:52)
[2018-04-12 05:59] LABS: Basophils % 0.3 % (0.0-0.8); Eosinophils # 0.1 10*3/uL (0.0-0.87); Eosinophils % 0.8 % (0.00-10.9); Hematocrit 24.6 VOL% (35.7-47.0); Hemoglobin 7.7 GM/DL (12.0-16.0); Immature Granulocytes % 1.5 %; Immature Granulocytes Absolute 0.18 #; Lymphocytes # 1.4 10*3/uL (1.4-4.0); Mean Corpuscular HGB Conc 31.3 GM/DL (32-36); Mean Corpuscular Hemoglobin 28 PG (27-34); Mean Corpuscular Volume 90.4 FL (87-102); Mean Platelet Volume 9.6 FL (9.6-12.0); Monocytes # 1.2 10*3/uL (0.11-0.8); Monocytes % 9.3 % (1.7-12.7); Neutrophils # 9.5 10*3/uL (1.4-7.4); Neutrophils % 77.1 % (38.7-73.9); Platelet Count 456 T/CUMM (130-400); Red Blood Count 2.72 MC/CUMM (3.8-5.5); Red Cell Distribution Width 13.6 % (9.3-17.3); White Blood Count 12.4 T/CUMM (4-12)
[2018-04-12 06:27] LABS: Risk Ratio 3.21; VLDL CHOLESTEROL 29.6 MG/DL
[2018-04-12 07:23] LABS: INR 1.1; PT Patient Result 11.4 SECS; Partial Thromboplastin Time 36.6 SECS (0-40)
[2018-04-12 07:31] LABS: Fibrinogen Quant Value > 900 MG% (200-400)
[2018-04-12] MEDS: IRON (CARBONYL) 45 MG TABLET PO SCH ×2 (08:37→21:11)
[2018-04-12] MEDS: PANTOPRAZOLE 40 MG TABLET PO SCH (08:37)
[2018-04-12 08:59] LABS: Calcium 8.3 MG/DL (8.5-10.1); Osmolality,Calculated 281.8 MOS/KG (273-304); Potassium 4.6 MMOL/L (3.5-5.1)
[2018-04-12] MEDS: SODIUM CHLORIDE 0.9% 1,000 ML IV SCH (10:03)
[2018-04-12] MEDS: LINEZOLID INJ 600 MG in PREMIX 1 EACH IV SCH (10:10)
[2018-04-12] MEDS: INSULIN ASPART PROTAMINE/ASPART 70/30 100 UNIT/ML SUBCUT SCH (12:24)
[2018-04-12] MEDS: HEPARIN 5,000 UNIT/1 ML VIAL SUBCUT SCH ×2 (12:24→21:16)
[2018-04-12] MEDS ORDERED: ENOXAPARIN 30 MG/0.3 ML SYRINGE SUBCUT SCH (21:00)
[2018-04-12] MEDS: ATORVASTATIN 10 MG TABLET PO SCH (21:11)
[2018-04-12] MEDS: INSULIN GLARGINE 100 UNIT/ML SUBCUT SCH (21:14)
[2018-04-12] MEDS: GABAPENTIN 100 MG CAPSULE PO SCH (22:14)
[2018-04-13] MEDS: INSULIN REGULAR 100 UNIT/ML SUBCUT SCH ×6 (01:23→21:42)
[2018-04-13] MEDS: LINEZOLID INJ 600 MG in PREMIX 1 EACH IV SCH (01:23)
[2018-04-13] MEDS: HEPARIN 5,000 UNIT/1 ML VIAL SUBCUT SCH ×3 (05:07→21:37)
[2018-04-13 05:08] LABS: Basophils % 0.1 % (0.0-0.8); Eosinophils # 0.2 10*3/uL (0.0-0.87); Eosinophils % 1.6 % (0.00-10.9); Hemoglobin 7.1 GM/DL (12.0-16.0); Immature Granulocytes % 1.4 %; Immature Granulocytes Absolute 0.14 #; Lymphocytes # 1.5 10*3/uL (1.4-4.0); Lymphocytes % 14.3 % (21.3-54.2); Mean Corpuscular HGB Conc 32.3 GM/DL (32-36); Mean Corpuscular Hemoglobin 29 PG (27-34); Mean Corpuscular Volume 89.4 FL (87-102); Mean Platelet Volume 9.4 FL (9.6-12.0); Monocytes # 1.1 10*3/uL (0.11-0.8); Monocytes % 10.8 % (1.7-12.7); Neutrophils # 7.3 10*3/uL (1.4-7.4); Neutrophils % 71.8 % (38.7-73.9); Platelet Count 382 T/CUMM (130-400); Red Blood Count 2.46 MC/CUMM (3.8-5.5); Red Cell Distribution Width 13.3 % (9.3-17.3); White Blood Count 10.2 T/CUMM (4-12)
[2018-04-13] MEDS: PIPERACILLIN/TAZOBACTAM 3,375 MG in SODIUM CHLORIDE 0.9% 100 ML IV SCH (05:16)
[2018-04-13 05:30] LABS: Alanine Aminotransferase 9 U/L (13-56); Albumin 1.1 G/DL (3.4-5.0); Alkaline Phosphatase 123 U/L (45-117); Aspartate Amino Transferase 10 U/L (0-37); Bilirubin,Total < 0.39 MG/DL (0.2-1.0); Blood Urea Nitrogen 15 MG/DL (7-18); Calcium 7.7 MG/DL (8.5-10.1); Glucose 129 MG/DL (74-106); Osmolality,Calculated 277.7 MOS/KG (273-304); Potassium 4.4 MMOL/L (3.5-5.1); Sodium 138 MMOL/L (136-145); Total Protein 5.9 G/DL (6.4-8.3)
[2018-04-13] MEDS: PANTOPRAZOLE 40 MG TABLET PO SCH (08:35)
[2018-04-13] MEDS: IRON (CARBONYL) 45 MG TABLET PO SCH ×2 (08:35→21:37)
[2018-04-13] MEDS: MORPHINE 4 MG/1 ML VIAL IV PRN (08:36)
[2018-04-13] MEDS: SODIUM CHLORIDE 0.9% 1,000 ML IV SCH (09:10)
[2018-04-13] MEDS: INSULIN ASPART PROTAMINE/ASPART 70/30 100 UNIT/ML SUBCUT SCH (12:16)
[2018-04-13] MEDS: ATORVASTATIN 10 MG TABLET PO SCH (21:37)
[2018-04-13] MEDS: GABAPENTIN 100 MG CAPSULE PO SCH (21:37)
[2018-04-13] MEDS: INSULIN GLARGINE 100 UNIT/ML SUBCUT SCH (21:42)
[2018-04-14] MEDS: INSULIN REGULAR 100 UNIT/ML SUBCUT SCH ×6 (00:48→21:14)
[2018-04-14] MEDS: HEPARIN 5,000 UNIT/1 ML VIAL SUBCUT SCH ×3 (06:36→20:04)
[2018-04-14 06:54] LABS: Basophils % 0.3 % (0.0-0.8); Eosinophils # 0.2 10*3/uL (0.0-0.87); Eosinophils % 2.2 % (0.00-10.9); Hematocrit 23.5 VOL% (35.7-47.0); Hemoglobin 7.5 GM/DL (12.0-16.0); Immature Granulocytes % 1.7 %; Immature Granulocytes Absolute 0.13 #; Lymphocytes # 1.4 10*3/uL (1.4-4.0); Lymphocytes % 18.8 % (21.3-54.2); Mean Corpuscular HGB Conc 31.9 GM/DL (32-36); Mean Corpuscular Hemoglobin 28 PG (27-34); Mean Corpuscular Volume 87.4 FL (87-102); Mean Platelet Volume 9.3 FL (9.6-12.0); Monocytes # 0.9 10*3/uL (0.11-0.8); Monocytes % 11.8 % (1.7-12.7); Neutrophils % 65.2 % (38.7-73.9); Platelet Count 415 T/CUMM (130-400); Red Blood Count 2.69 MC/CUMM (3.8-5.5); Red Cell Distribution Width 13.5 % (9.3-17.3); White Blood Count 7.6 T/CUMM (4-12)
[2018-04-14] MEDS: SODIUM CHLORIDE 0.9% 1,000 ML IV SCH ×2 (07:27→20:09)
[2018-04-14] MEDS: IRON (CARBONYL) 45 MG TABLET PO SCH ×2 (08:54→20:04)
[2018-04-14] MEDS: PANTOPRAZOLE 40 MG TABLET PO SCH (08:54)
[2018-04-14] MEDS: INSULIN ASPART PROTAMINE/ASPART 70/30 100 UNIT/ML SUBCUT SCH (13:17)
[2018-04-14] MEDS: MORPHINE 4 MG/1 ML VIAL IV PRN (15:49)
[2018-04-14] MEDS: GABAPENTIN 100 MG CAPSULE PO SCH (20:04)
[2018-04-14] MEDS: ATORVASTATIN 10 MG TABLET PO SCH (20:04)
[2018-04-14] MEDS: INSULIN GLARGINE 100 UNIT/ML SUBCUT SCH (21:15)
[2018-04-15] MEDS: INSULIN REGULAR 100 UNIT/ML SUBCUT SCH ×6 (02:25→21:10)
[2018-04-15] MEDS: HEPARIN 5,000 UNIT/1 ML VIAL SUBCUT SCH ×3 (05:44→21:09)
[2018-04-15 05:59] LABS: Basophils % 0.3 % (0.0-0.8); Eosinophils # 0.1 10*3/uL (0.0-0.87); Eosinophils % 1.9 % (0.00-10.9); Hematocrit 24.9 VOL% (35.7-47.0); Hemoglobin 7.9 GM/DL (12.0-16.0); Immature Granulocytes % 1.6 %; Immature Granulocytes Absolute 0.11 #; Lymphocytes # 1.5 10*3/uL (1.4-4.0); Lymphocytes % 20.7 % (21.3-54.2); Mean Corpuscular HGB Conc 31.7 GM/DL (32-36); Mean Corpuscular Hemoglobin 28 PG (27-34); Mean Platelet Volume 9.1 FL (9.6-12.0); Monocytes # 0.7 10*3/uL (0.11-0.8); Neutrophils # 4.6 10*3/uL (1.4-7.4); Neutrophils % 65.5 % (38.7-73.9); Platelet Count 433 T/CUMM (130-400); Red Blood Count 2.83 MC/CUMM (3.8-5.5); Red Cell Distribution Width 13.4 % (9.3-17.3)
[2018-04-15 06:34] LABS: Potassium 4.3 MMOL/L (3.5-5.1)
[2018-04-15] MEDS: PANTOPRAZOLE 40 MG TABLET PO SCH (09:05)
[2018-04-15] MEDS: IRON (CARBONYL) 45 MG TABLET PO SCH ×2 (09:05→21:08)
[2018-04-15] MEDS: INSULIN ASPART PROTAMINE/ASPART 70/30 100 UNIT/ML SUBCUT SCH (13:01)
[2018-04-15] MEDS ORDERED: MAGNESIUM SULF RIDER 2 GM in PREMIX 1 EACH IV ONE (16:15)
[2018-04-15] MEDS: amLODIPine 5 MG TABLET PO SCH (16:39)
[2018-04-15] MEDS: SODIUM CHLORIDE 0.9% 1,000 ML IV SCH (18:02)
[2018-04-15] MEDS: GABAPENTIN 100 MG CAPSULE PO SCH (21:08)
[2018-04-15] MEDS: ATORVASTATIN 10 MG TABLET PO SCH (21:08)
[2018-04-15] MEDS: INSULIN GLARGINE 100 UNIT/ML SUBCUT SCH (21:27)
[2018-04-16] MEDS: INSULIN REGULAR 100 UNIT/ML SUBCUT SCH ×4 (00:57→12:40)
[2018-04-16] MEDS: HEPARIN 5,000 UNIT/1 ML VIAL SUBCUT SCH ×2 (04:50→13:32)
[2018-04-16] MEDS: amLODIPine 5 MG TABLET PO SCH (11:21)
[2018-04-16] MEDS: PANTOPRAZOLE 40 MG TABLET PO SCH (11:21)
[2018-04-16] MEDS: IRON (CARBONYL) 45 MG TABLET PO SCH (11:21)
[2018-04-16] MEDS: INSULIN ASPART PROTAMINE/ASPART 70/30 100 UNIT/ML SUBCUT SCH (12:40)
[2018-04-16 22:09] VITALS: BP 152/86
== END 2018-04-16 15:05 | disposition home or self-care (01) | DRG 464 ==
LOC: N.OR 06:43 → N.SDSINP 06:44 → N.5E 13:02
PROVIDERS: ADMIT Surgery; ATTEND Surgery

== ENCOUNTER 2018-04-30 11:23 | Inpatient (IN) ==
[2018-05-14 16:48] VITALS: BP 170/91
== END 2018-05-14 19:34 | disposition home or self-care (01) | DRG 565 ==
LOC: N.2W → N.3E 16:16
PROVIDERS: ADMIT Surgery; ATTEND Surgery

== ENCOUNTER 2019-08-28 19:13 | Inpatient (IN) ==
[2019-08-28] MEDS ORDERED: ACETAMINOPHEN 325 MG TABLET PO PRN (21:20)
[2019-08-28] MEDS ORDERED: MORPHINE 4 MG/1 ML VIAL IV PRN (21:20)
[2019-08-28] MEDS ORDERED: guaiFENesin/DM ER 600-30 MG TABLET PO PRN (21:20)
[2019-08-28] MEDS ORDERED: diphenhydrAMINE CAP 25 MG CAPSULE PO PRN (21:20)
[2019-08-28] MEDS ORDERED: INFLUENZA VIRUS VACCINE 0.5 ML SYRINGE IM ONE (21:22)
[2019-08-28 21:32] LABS: Allen Test Positive
[2019-08-28 21:36] LABS: ABG Base Excess -18.5 MMOL/L (-2.5-2.5); ABG HCO3 10.2 MMOL/L (20-26); ABG Oxygen Saturation 96.7 % (95-100); ABG TCO2 9.2 MMOL/L (23-27)
[2019-08-28 21:40] LABS: ABG PCO2 27.5 MM HG (35-48)
[2019-08-28 21:41] LABS: ABG PH 7.137 (7.35-7.45)
[2019-08-28] MEDS ORDERED: SODIUM BICARBONATE 50 MEQ/50 ML VIAL IV ONE ×3 (21:50→23:26)
[2019-08-28 21:53] LABS: Basophils % 0.2 % (0.0-0.8); Hematocrit 18.8 VOL% (35.7-47.0); Immature Granulocytes % 0.6 %; Immature Granulocytes Absolute 0.06 #; Lymphocytes # 0.3 10*3/uL (1.4-4.0); Lymphocytes % 2.5 % (21.3-54.2); Mean Corpuscular HGB Conc 29.8 GM/DL (32-36); Mean Corpuscular Volume 96.9 FL (87-102); Mean Platelet Volume 9.3 FL (9.6-12.0); Monocytes % 1.1 % (1.7-12.7); Neutrophils % 95.6 % (38.7-73.9); Platelet Count 266 T/CUMM (130-400)
[2019-08-28 21:59] LABS: Hemoglobin 5.6 GM/DL (12.0-16.0); Red Blood Count 1.94 MC/CUMM (3.8-5.5)
[2019-08-28 22:05] LABS: PT Patient Result 10.6 SECS (9.6-12.2)
[2019-08-28 22:07] LABS: Calcium 7.4 MG/DL (8.5-10.1); Osmolality,Calculated 311.8 MOS/KG (273-304)
[2019-08-28] MEDS ORDERED: SODIUM CHLORIDE 0.9% 1,000 ML IV PRN (22:15)
[2019-08-28] MEDS: FUROSEMIDE 40 MG/4 ML VIAL IV SCH (22:16)
[2019-08-28] MEDS ORDERED: MAGNESIUM SULF RIDER 2 GM in PREMIX 1 EACH IV ONE (22:25)
[2019-08-28] MEDS ORDERED: POTASSIUM CHLORIDE RIDER 10 MEQ in PREMIX 1 EACH IV PRN (22:25)
[2019-08-28 22:27] LABS: Lymphocytes 2 % (20-55); Segmented Neutrophils 96 % (50-85); Total Cells Counted 100
[2019-08-28 22:28] LABS: Burr Cells 1+; Hypochromasia 1+; Platelet Estimate Normal; Polychromasia Few
[2019-08-28] MEDS ORDERED: FUROSEMIDE 20 MG/2 ML VIAL IV ONE (22:29)
[2019-08-28 22:31] LABS: CKMB % 1.8 %
[2019-08-28 22:33] LABS: Apearance,Urine CLEAR (Clear); Bilirubin,Urine Negative (Negative); Blood, Urine Negative (Negative); Glucose,Urine (UA) >=500 mg/dL (Negative); Hyaline Casts,Urine 1 /LPF (0-3); Ketones,Urine Negative (Negative); Nitrite,Urine Negative (Negative); Protein,Urine >=500 MG/DL; RBC,Urine 1 /HPF (0-4); Squamous Epithelial Cell,Urine Occasional /HPF (0-10); Urine Color Yellow (Yellow); Urine Specific Gravity 1.012 (1.001-1.035); Urine Urobilinogen < 2.0 EU/DL (0.2-1.0); WBC,Urine 1 /HPF (0-6)
[2019-08-28 23:04] LABS: Folate 20.8 NG/ML (5.4-24.0); Vitamin B12 393 PG/ML (211-911)
[2019-08-28] MEDS: AZITHROMYCIN INJ 500 MG in SODIUM CHLORIDE 0.9% 250 ML IV SCH (23:05)
[2019-08-28 23:11] LABS: ABG Base Excess -15.6 MMOL/L (-2.5-2.5); ABG HCO3 12.4 MMOL/L (20-26); ABG Oxygen Saturation 97.3 % (95-100); ABG PCO2 30.2 MM HG (35-48); Allen Test Positive; Pt O2 Delivery Device Other
[2019-08-28 23:27] LABS: Basophils % 0.2 % (0.0-0.8); Immature Granulocytes % 0.7 %; Immature Granulocytes Absolute 0.06 #; Lymphocytes # 0.2 10*3/uL (1.4-4.0); Lymphocytes % 1.7 % (21.3-54.2); Mean Corpuscular HGB Conc 29.6 GM/DL (32-36); Mean Corpuscular Volume 96.6 FL (87-102); Mean Platelet Volume 9.3 FL (9.6-12.0); Monocytes % 0.8 % (1.7-12.7); NRBC # 0.02 10*3/uL; Neutrophils % 96.6 % (38.7-73.9); Platelet Count 239 T/CUMM (130-400); Red Blood Count 1.75 MC/CUMM (3.8-5.5); White Blood Count 8.8 T/CUMM (4-12)
[2019-08-28 23:30] LABS: Hematocrit 16.9 VOL% (35.7-47.0)
[2019-08-29] MEDS ORDERED: VANCOMYCIN INJ 1,500 MG in SODIUM CHLORIDE 0.9% 500 ML IV ONE
[2019-08-29] MEDS ORDERED: SODIUM CHLORIDE 0.9% 1,000 ML IV PRN (00:21)
[2019-08-29 00:32] LABS: Sedimentation Rate-Westergren 151 MM/HR (0-20)
[2019-08-29 01:05] LABS: Barbiturates Screen,Urine Negative (Negative); Benzodiazepines Screen,Urine Negative (Negative); Cannabinoid Screen,Urine Negative (Negative); Opiate Screen,Urine Positive (Negative); Phencyclidine Screen,Urine Negative (Negative)
[2019-08-29 01:10] LABS: Lymphocytes 2 % (20-55); Segmented Neutrophils 98 % (50-85); Total Cells Counted 100
[2019-08-29 01:12] LABS: Burr Cells 1+; Hypochromasia 1+; Platelet Estimate Normal
[2019-08-29 03:22] LABS: ABG Base Excess -15.1 MMOL/L (-2.5-2.5); ABG HCO3 11.8 MMOL/L (20-26); ABG Oxygen Saturation 97.2 % (95-100); ABG PCO2 31.7 MM HG (35-48); ABG TCO2 12.8 MMOL/L (23-27); Allen Test Positive; Pt O2 Delivery Device Other
[2019-08-29 03:28] LABS: ABG PH 7.189 (7.35-7.45)
[2019-08-29] MEDS ORDERED: SODIUM BICARBONATE 50 MEQ/50 ML VIAL IV ONE (03:35)
[2019-08-29] MEDS: ONDANSETRON 4 MG/2 ML VIAL IV PRN ×3 (04:38→20:41)
[2019-08-29] MEDS ORDERED: hydrALAZINE 20 MG/1 ML VIAL IV ONE (04:50)
[2019-08-29] MEDS: MEROPENEM 500 MG in SODIUM CHLORIDE 0.9% 100 ML IV SCH (05:05)
[2019-08-29 05:14] LABS: Albumin 1.7 G/DL (3.4-5.0); Bilirubin,Total 0.5 MG/DL (0.2-1.0); Calcium 7.6 MG/DL (8.5-10.1); Osmolality,Calculated 327.1 MOS/KG (273-304); Total Protein 5.9 G/DL (6.4-8.3)
[2019-08-29 06:28] LABS: Basophils % 0.1 % (0.0-0.8); Hematocrit 24.6 VOL% (35.7-47.0); Hemoglobin 7.8 GM/DL (12.0-16.0); Immature Granulocytes % 0.4 %; Immature Granulocytes Absolute 0.03 #; Lymphocytes # 0.2 10*3/uL (1.4-4.0); Mean Corpuscular HGB Conc 31.7 GM/DL (32-36); Mean Corpuscular Volume 92.1 FL (87-102); Mean Platelet Volume 9.4 FL (9.6-12.0); Monocytes % 0.9 % (1.7-12.7); Neutrophils % 95.6 % (38.7-73.9); Platelet Count 236 T/CUMM (130-400); Red Blood Count 2.67 MC/CUMM (3.8-5.5); Red Cell Distribution Width 14.4 % (9.3-17.3); White Blood Count 7.7 T/CUMM (4-12)
[2019-08-29 07:11] LABS: Lymphocytes 3 % (20-55); Platelet Estimate Adequate; Segmented Neutrophils 97 % (50-85); Total Cells Counted 100
[2019-08-29 07:12] LABS: Hypochromasia 1+; Ovalocytes Slight
[2019-08-29] MEDS ORDERED: GLUCAGON 1 MG VIAL IM PRN (10:04)
[2019-08-29] MEDS ORDERED: DEXTROSE 50% 25 GM/50 ML VIAL IV PRN (10:04)
[2019-08-29 10:20] LABS: Allen Test Positive; Pt O2 Delivery Device Other
[2019-08-29 10:21] LABS: ABG Base Excess -10.5 MMOL/L (-2.5-2.5); ABG Oxygen Saturation 98.6 % (95-100); ABG PCO2 33.8 MM HG (35-48); ABG PH 7.272 (7.35-7.45); ABG TCO2 14.7 MMOL/L (23-27)
[2019-08-29] MEDS: FUROSEMIDE 40 MG/4 ML VIAL IV SCH (10:36)
[2019-08-29] MEDS: PANTOPRAZOLE 40 MG TABLET PO SCH (10:36)
[2019-08-29 10:51] LABS: Calcium 7.3 MG/DL (8.5-10.1); Osmolality,Calculated 325.3 MOS/KG (273-304)
[2019-08-29] MEDS: INSULIN REGULAR 100 UNIT/ML SUBCUT SCH ×3 (12:04→21:04)
[2019-08-29] MEDS ORDERED: FUROSEMIDE 40 MG/4 ML VIAL ONE ×2 (13:33→21:10)
[2019-08-29] MEDS ORDERED: FUROSEMIDE 20 MG/2 ML VIAL ONE ×2 (13:33→21:10)
[2019-08-29] MEDS: FUROSEMIDE 100 MG/10 ML VIAL IV SCH ×2 (13:37→21:32)
[2019-08-29] MEDS: metOLazone 5 MG TABLET PO SCH ×2 (13:41→21:33)
[2019-08-29] MEDS ORDERED: PROMETHAZINE 25 MG TABLET PO PRN (17:56)
[2019-08-29] MEDS ORDERED: VANCOMYCIN INJ 1,000 MG in SODIUM CHLORIDE 0.9% 250 ML IV PRN (22:37)
[2019-08-29] MEDS: AZITHROMYCIN INJ 500 MG in SODIUM CHLORIDE 0.9% 250 ML IV SCH (23:30)
[2019-08-30 05:05] LABS: Basophils % 0.4 % (0.0-0.8); Eosinophils % 0.2 % (0.00-10.9); Hemoglobin 7.5 GM/DL (12.0-16.0); Immature Granulocytes % 0.4 %; Immature Granulocytes Absolute 0.04 #; Lymphocytes # 0.7 10*3/uL (1.4-4.0); Lymphocytes % 6.8 % (21.3-54.2); Mean Corpuscular HGB Conc 31.3 GM/DL (32-36); Mean Platelet Volume 9.3 FL (9.6-12.0); Monocytes % 7.9 % (1.7-12.7); NRBC # 0.03 10*3/uL; Neutrophils % 84.3 % (38.7-73.9); Platelet Count 262 T/CUMM (130-400); Red Blood Count 2.58 MC/CUMM (3.8-5.5); Red Cell Distribution Width 14.6 % (9.3-17.3); White Blood Count 10.3 T/CUMM (4-12)
[2019-08-30] MEDS: MEROPENEM 500 MG in SODIUM CHLORIDE 0.9% 100 ML IV SCH (05:33)
[2019-08-30 05:34] LABS: Calcium 7.5 MG/DL (8.5-10.1); Osmolality,Calculated 315.8 MOS/KG (273-304)
[2019-08-30] MEDS: INSULIN REGULAR 100 UNIT/ML SUBCUT SCH ×4 (07:46→20:15)
[2019-08-30] MEDS ORDERED: FUROSEMIDE 20 MG/2 ML VIAL ONE ×2 (07:52→17:38)
[2019-08-30] MEDS ORDERED: FUROSEMIDE 40 MG/4 ML VIAL ONE ×2 (07:53→17:38)
[2019-08-30] MEDS: FUROSEMIDE 100 MG/10 ML VIAL IV SCH ×2 (08:02→17:38)
[2019-08-30] MEDS: PANTOPRAZOLE 40 MG TABLET PO SCH (08:07)
[2019-08-30] MEDS: metOLazone 5 MG TABLET PO SCH ×2 (08:07→21:41)
[2019-08-30 10:20] LABS: Hepatitis B Core IgM Quant 0.05 Index; Hepatitis B Surface Ag Quant 0.28 Index; Hepatitis B Surface Ag Result Negative (Negative); Hepatitis C Virus Ab Quant 0.15 Index; Hepatitis C Virus Ab Result Negative (Negative)
[2019-08-31 04:21] LABS: Calcium 7.5 MG/DL (8.5-10.1)
[2019-08-31 05:50] LABS: Basophils # 0.1 10*3/uL (0.0-0.2); Basophils % 0.7 % (0.0-0.8); Eosinophils # 0.1 10*3/uL (0.0-0.87); Eosinophils % 1.1 % (0.00-10.9); Hematocrit 22.1 VOL% (35.7-47.0); Immature Granulocytes % 0.4 %; Immature Granulocytes Absolute 0.03 #; Lymphocytes # 0.9 10*3/uL (1.4-4.0); Lymphocytes % 12.3 % (21.3-54.2); Mean Corpuscular HGB Conc 31.7 GM/DL (32-36); Mean Corpuscular Volume 91.7 FL (87-102); Mean Platelet Volume 9.3 FL (9.6-12.0); Monocytes % 9.6 % (1.7-12.7); NRBC # 0.03 10*3/uL; Neutrophils % 75.9 % (38.7-73.9); Platelet Count 132 T/CUMM (130-400); Red Blood Count 2.41 MC/CUMM (3.8-5.5); Red Cell Distribution Width 14.4 % (9.3-17.3); White Blood Count 7.4 T/CUMM (4-12)
[2019-08-31] MEDS: INSULIN REGULAR 100 UNIT/ML SUBCUT SCH ×4 (08:26→20:40)
[2019-08-31] MEDS ORDERED: SODIUM CHLORIDE 0.9% 1,000 ML IV PRN (08:31)
[2019-08-31] MEDS ORDERED: FUROSEMIDE 20 MG/2 ML VIAL ONE (08:34)
[2019-08-31] MEDS ORDERED: FUROSEMIDE 40 MG/4 ML VIAL ONE (08:34)
[2019-08-31] MEDS: FUROSEMIDE 100 MG/10 ML VIAL IV SCH (08:38)
[2019-08-31] MEDS: PANTOPRAZOLE 40 MG TABLET PO SCH (08:44)
[2019-08-31] MEDS: metOLazone 5 MG TABLET PO SCH (08:44)
[2019-08-31] MEDS ORDERED: HEPARIN 10,000 UNIT/10 ML VIAL IV SCH (15:30)
[2019-09-01 06:18] LABS: Basophils % 0.6 % (0.0-0.8); Eosinophils # 0.2 10*3/uL (0.0-0.87); Eosinophils % 4.1 % (0.00-10.9); Hematocrit 27.4 VOL% (35.7-47.0); Immature Granulocytes % 0.4 %; Immature Granulocytes Absolute 0.02 #; Lymphocytes # 1.1 10*3/uL (1.4-4.0); Lymphocytes % 20.9 % (21.3-54.2); Mean Corpuscular HGB Conc 32.8 GM/DL (32-36); Mean Corpuscular Volume 87.8 FL (87-102); Mean Platelet Volume 9.7 FL (9.6-12.0); Monocytes % 12.3 % (1.7-12.7); NRBC # 0.02 10*3/uL; Neutrophils % 61.7 % (38.7-73.9); Red Blood Count 3.12 MC/CUMM (3.8-5.5); White Blood Count 5.4 T/CUMM (4-12)
[2019-09-01 06:26] LABS: Platelet Count 62 T/CUMM (130-400)
[2019-09-01 06:37] LABS: Calcium 7.3 MG/DL (8.5-10.1)
[2019-09-01 07:10] LABS: Hypochromasia 1+
[2019-09-01 07:11] LABS: Microcytosis 1+; Ovalocytes Slight; Platelet Estimate Decreased
[2019-09-01 07:12] LABS: Polychromasia Slight
[2019-09-01 08:48] LABS: % Iron Saturation 11.8 % (18-50)
[2019-09-01] MEDS: INSULIN REGULAR 100 UNIT/ML SUBCUT SCH ×4 (08:49→21:20)
[2019-09-01] MEDS: PANTOPRAZOLE 40 MG TABLET PO SCH (08:49)
[2019-09-01] MEDS ORDERED: EPOETIN ALFA 2,000 UNIT/1 ML VIAL IV PRN (15:52)
[2019-09-01] MEDS: carvediloL 3.125 MG TABLET PO SCH (21:24)
[2019-09-02] MEDS: ONDANSETRON 4 MG/2 ML VIAL IV PRN (00:24)
[2019-09-02 06:49] LABS: Albumin 1.5 G/DL (3.4-5.0); Calcium 6.9 MG/DL (8.5-10.1); Osmolality,Calculated 299.1 MOS/KG (273-304)
[2019-09-02] MEDS ORDERED: IRON SUCROSE 300 MG in SODIUM CHLORIDE 0.9% 100 ML IV ONE (08:00)
[2019-09-02] MEDS: PANTOPRAZOLE 40 MG TABLET PO SCH (09:41)
[2019-09-02] MEDS: carvediloL 3.125 MG TABLET PO SCH (09:41)
[2019-09-02] MEDS: INSULIN REGULAR 100 UNIT/ML SUBCUT SCH ×2 (09:42→13:34)
[2019-09-02 12:40] VITALS: BP 146/76
[2019-09-03] MEDS ORDERED: FUROSEMIDE 80 MG TABLET PO SCH (09:00)
== END 2019-09-02 15:11 | disposition home or self-care (01) | DRG 194 ==
LOC: N.ICU 20:53 → SUATTDRO 20:53 → N.5E 08-31 16:32
PROVIDERS: ADMIT Internal Medicine; ATTEND Internal Medicine

== ENCOUNTER 2019-10-05 20:10 | Inpatient (IN) ==
[2019-10-05 22:58] LABS: Basophils # 0.1 10*3/uL (0.0-0.2); Basophils % 0.8 % (0.0-0.8); Eosinophils # 0.3 10*3/uL (0.0-0.87); Eosinophils % 4.6 % (0.00-10.9); Hematocrit 23.1 VOL% (35.7-47.0); Immature Granulocytes % 0.5 %; Immature Granulocytes Absolute 0.03 #; Lymphocytes # 1.1 10*3/uL (1.4-4.0); Lymphocytes % 16.5 % (21.3-54.2); Mean Corpuscular HGB Conc 30.3 GM/DL (32-36); Mean Corpuscular Volume 93.9 FL (87-102); Mean Platelet Volume 9.1 FL (9.6-12.0); Monocytes % 9.6 % (1.7-12.7); Platelet Count 200 T/CUMM (130-400); Red Blood Count 2.46 MC/CUMM (3.8-5.5); Red Cell Distribution Width 15.6 % (9.3-17.3); White Blood Count 6.4 T/CUMM (4-12)
[2019-10-05 23:34] LABS: Alanine Aminotransferase 16 U/L (13-56); Alkaline Phosphatase 97 U/L (45-117); Aspartate Amino Transferase 16 U/L (0-37); Bilirubin,Total < 0.39 MG/DL (0.2-1.0); Blood Urea Nitrogen 84 MG/DL (7-18); Calcium 7.2 MG/DL (8.5-10.1); Estimated Glom Filtration Rate 8 ML/MIN; Glucose 121 MG/DL (74-106); Osmolality,Calculated 314.7 MOS/KG (273-304); Total Protein 6.1 G/DL (6.4-8.3)
[2019-10-05] MEDS ORDERED: NICOTINE 21 MG/24 HR PATCH TRANSDERM PRN (23:45)
[2019-10-05] MEDS ORDERED: MORPHINE 4 MG/1 ML VIAL IV PRN (23:45)
[2019-10-05] MEDS ORDERED: diphenhydrAMINE CAP 25 MG CAPSULE PO PRN (23:45)
[2019-10-05] MEDS ORDERED: SODIUM POLYSTYRENE SULFATE 15 GM/60 ML BOTTLE PO ONE (23:45)
[2019-10-05] MEDS ORDERED: ACETAMINOPHEN 325 MG TABLET PO PRN (23:45)
[2019-10-05] MEDS ORDERED: MAGNESIUM SULF RIDER 4 GM in PREMIX 1 EACH IV PRN (23:47)
[2019-10-05] MEDS ORDERED: MAGNESIUM SULF RIDER 2 GM in PREMIX 1 EACH IV PRN (23:47)
[2019-10-05] MEDS ORDERED: DEXTROSE 10% 250 ML BAG IV PRN (23:48)
[2019-10-05] MEDS ORDERED: GLUCAGON 1 MG VIAL IM PRN (23:48)
[2019-10-06 00:28] LABS: Alanine Aminotransferase 16 U/L (13-56); Alkaline Phosphatase 96 U/L (45-117); Aspartate Amino Transferase 14 U/L (0-37); Bilirubin,Direct < 0.100 MG/DL (0.0-0.20); Bilirubin,Indirect 0.3 MG/DL (0.0-1.0); Bilirubin,Total < 0.39 MG/DL (0.2-1.0); Total Protein 6.1 G/DL (6.4-8.3)
[2019-10-06 00:38] LABS: Basophils % 0.6 % (0.0-0.8); Eosinophils # 0.3 10*3/uL (0.0-0.87); Eosinophils % 4.2 % (0.00-10.9); Hematocrit 23.2 VOL% (35.7-47.0); Hemoglobin 7.1 GM/DL (12.0-16.0); Immature Granulocytes % 0.5 %; Immature Granulocytes Absolute 0.03 #; Lymphocytes % 15.1 % (21.3-54.2); Mean Corpuscular HGB Conc 30.6 GM/DL (32-36); Mean Corpuscular Volume 93.9 FL (87-102); Mean Platelet Volume 9.5 FL (9.6-12.0); Monocytes % 8.2 % (1.7-12.7); Neutrophils % 71.4 % (38.7-73.9); Platelet Count 202 T/CUMM (130-400); Red Blood Count 2.47 MC/CUMM (3.8-5.5); Red Cell Distribution Width 15.8 % (9.3-17.3); White Blood Count 6.6 T/CUMM (4-12)
[2019-10-06 01:25] LABS: Hepatitis B Core IgM Quant < 0.05 Index; Hepatitis B Surface Ag Quant < 0.10 Index; Hepatitis B Surface Ag Result Negative (Negative); Hepatitis C Virus Ab Quant 0.15 Index; Hepatitis C Virus Ab Result Negative (Negative)
[2019-10-06 01:39] LABS: Sedimentation Rate-Westergren 129 MM/HR (0-20)
[2019-10-06] MEDS ORDERED: FUROSEMIDE 40 MG/4 ML VIAL IV ONE (02:41)
[2019-10-06] MEDS: ONDANSETRON 4 MG/2 ML VIAL IV PRN (03:08)
[2019-10-06 03:45] LABS: ABG Base Excess -17.6 MMOL/L (-2.5-2.5); ABG HCO3 11.2 MMOL/L (20-26); ABG Oxygen Saturation 93.9 % (95-100); ABG PCO2 31.5 MM HG (35-48); ABG PO2 81.3 MM HG (80-95); ABG TCO2 10.1 MMOL/L (23-27); Allen Test Positive
[2019-10-06 03:48] LABS: ABG PH 7.136 (7.35-7.45)
[2019-10-06] MEDS ORDERED: SODIUM BICARBONATE 50 MEQ/50 ML VIAL IV ONE (04:18)
[2019-10-06 04:42] LABS: Folate 11.3 NG/ML (5.4-24.0); Vitamin B12 437 PG/ML (211-911)
[2019-10-06 08:12] LABS: Calcium 7.4 MG/DL (8.5-10.1); Osmolality,Calculated 320.1 MOS/KG (273-304)
[2019-10-06] MEDS: INSULIN REGULAR 100 UNIT/ML SUBCUT SCH ×4 (08:12→20:42)
[2019-10-06] MEDS: carvediloL 3.125 MG TABLET PO SCH ×2 (08:22→21:02)
[2019-10-06] MEDS: IRON (CARBONYL) 45 MG TABLET PO SCH ×2 (08:22→21:02)
[2019-10-06] MEDS: guaiFENesin/DM ER 600-30 MG TABLET PO PRN ×2 (08:22→18:30)
[2019-10-06] MEDS: ASPIRIN EC 81 MG TABLET PO SCH (08:22)
[2019-10-06 11:50] LABS: Apearance,Urine CLEAR (Clear); Bacteria,Urine Occasional /HPF (Few); Bilirubin,Urine Negative (Negative); Blood, Urine Negative (Negative); Glucose,Urine (UA) 50 mg/dL (Negative); Ketones,Urine Negative (Negative); Mucus,Urine Occasional /LPF (Occasional); Nitrite,Urine Negative (Negative); Protein,Urine 100 MG/DL; RBC,Urine 2 /HPF (0-4); Squamous Epithelial Cell,Urine Occasional /HPF (0-10); Urine Color Yellow (Yellow); Urine Specific Gravity 1.009 (1.001-1.035); Urine Urobilinogen < 2.0 EU/DL (0.2-1.0)
[2019-10-06 12:13] LABS: Barbiturates Screen,Urine Negative (Negative); Benzodiazepines Screen,Urine Negative (Negative); Cannabinoid Screen,Urine Negative (Negative); Opiate Screen,Urine Negative (Negative); Phencyclidine Screen,Urine Negative (Negative)
[2019-10-06] MEDS: FUROSEMIDE 100 MG/10 ML VIAL IV SCH ×2 (13:00→18:45)
[2019-10-06] MEDS ORDERED: BISACODYL 5 MG TABLET PO PRN (17:39)
[2019-10-06] MEDS: ATORVASTATIN 10 MG TABLET PO SCH (21:03)
[2019-10-07] MEDS: FUROSEMIDE 100 MG/10 ML VIAL IV SCH ×4 (02:00→11:34)
[2019-10-07 05:32] LABS: Basophils # 0.1 10*3/uL (0.0-0.2); Basophils % 0.5 % (0.0-0.8); Eosinophils # 0.1 10*3/uL (0.0-0.87); Eosinophils % 1.1 % (0.00-10.9); Hematocrit 21.7 VOL% (35.7-47.0); Hemoglobin 6.6 GM/DL (12.0-16.0); Immature Granulocytes % 0.4 %; Immature Granulocytes Absolute 0.04 #; Lymphocytes # 0.9 10*3/uL (1.4-4.0); Lymphocytes % 8.4 % (21.3-54.2); Mean Corpuscular HGB Conc 30.4 GM/DL (32-36); Mean Corpuscular Volume 93.1 FL (87-102); Mean Platelet Volume 9.6 FL (9.6-12.0); Monocytes % 6.4 % (1.7-12.7); Neutrophils % 83.2 % (38.7-73.9); Platelet Count 205 T/CUMM (130-400); Red Blood Count 2.33 MC/CUMM (3.8-5.5); Red Cell Distribution Width 15.9 % (9.3-17.3); White Blood Count 10.2 T/CUMM (4-12)
[2019-10-07 05:51] LABS: Calcium 7.5 MG/DL (8.5-10.1); Osmolality,Calculated 313.7 MOS/KG (273-304)
[2019-10-07] MEDS ORDERED: FUROSEMIDE 100 MG/10 ML VIAL IV SCH (05:55)
[2019-10-07 06:51] LABS: Hepatitis B Core IgM Quant < 0.05 Index; Hepatitis B Surface Ag Quant < 0.10 Index; Hepatitis B Surface Ag Result Negative (Negative); Hepatitis C Virus Ab Quant 0.14 Index; Hepatitis C Virus Ab Result Negative (Negative)
[2019-10-07] MEDS ORDERED: CLINDAMYCIN INJ 900 MG in PREMIX 1 EACH IV ONE (06:53)
[2019-10-07] MEDS: INSULIN REGULAR 100 UNIT/ML SUBCUT SCH ×4 (07:22→20:21)
[2019-10-07] MEDS: carvediloL 3.125 MG TABLET PO SCH ×2 (08:19→21:23)
[2019-10-07] MEDS: ASPIRIN EC 81 MG TABLET PO SCH (08:19)
[2019-10-07] MEDS: IRON (CARBONYL) 45 MG TABLET PO SCH ×2 (08:19→21:23)
[2019-10-07] MEDS ORDERED: LIDOCAINE 1%/EPI INJ 20 ML VIAL ONE (09:11)
[2019-10-07] MEDS ORDERED: HEPARIN 5,000 UNIT/1 ML VIAL ONE (09:11)
[2019-10-07] MEDS ORDERED: BUPIVACAINE MPF 0.25% 30 ML VIAL ONE (09:11)
[2019-10-07] MEDS ORDERED: propofoL 200 MG/20 ML VIAL IV ONE (10:13)
[2019-10-07] MEDS ORDERED: LIDOCAINE 2% 5 ML VIAL ONE (10:13)
[2019-10-07] MEDS ORDERED: fentaNYL 100 MCG/2 ML VIAL ONE (10:15)
[2019-10-07] MEDS ORDERED: KETAMINE 500 MG/10 ML VIAL ONE (10:15)
[2019-10-07] MEDS ORDERED: MIDAZOLAM 2 MG/2 ML VIAL ONE (10:15)
[2019-10-07] MEDS ORDERED: DEXAMETHASONE 4 MG/1 ML VIAL ONE (10:15)
[2019-10-07] MEDS ORDERED: ONDANSETRON 4 MG/2 ML VIAL ONE (10:15)
[2019-10-07] MEDS ORDERED: HEPARIN 10,000 UNIT/10 ML VIAL IV SCH (13:00)
[2019-10-07] MEDS ORDERED: SODIUM CHLORIDE 0.9% 1,000 ML IV PRN (16:59)
[2019-10-07] MEDS: ONDANSETRON 4 MG/2 ML VIAL IV PRN (21:01)
[2019-10-07] MEDS: ATORVASTATIN 10 MG TABLET PO SCH (21:23)
[2019-10-08 08:21] LABS: Hemoglobin A1 (Alkaline) 97.4 % (96.5-98.5); Hemoglobin A2 (Alkaline) 2.6 % (1.5-3.5)
[2019-10-08] MEDS: INSULIN REGULAR 100 UNIT/ML SUBCUT SCH ×4 (08:34→21:11)
[2019-10-08] MEDS: ASPIRIN EC 81 MG TABLET PO SCH (08:36)
[2019-10-08] MEDS: carvediloL 3.125 MG TABLET PO SCH ×2 (08:36→21:07)
[2019-10-08] MEDS: IRON (CARBONYL) 45 MG TABLET PO SCH ×2 (08:36→21:07)
[2019-10-08] MEDS: ATORVASTATIN 10 MG TABLET PO SCH (21:07)
[2019-10-09 06:36] LABS: Basophils % 0.6 % (0.0-0.8); Eosinophils # 0.3 10*3/uL (0.0-0.87); Eosinophils % 5.6 % (0.00-10.9); Hematocrit 23.7 VOL% (35.7-47.0); Hemoglobin 7.4 GM/DL (12.0-16.0); Immature Granulocytes % 0.4 %; Immature Granulocytes Absolute 0.02 #; Lymphocytes # 1.1 10*3/uL (1.4-4.0); Mean Corpuscular HGB Conc 31.2 GM/DL (32-36); Mean Corpuscular Volume 89.4 FL (87-102); Mean Platelet Volume 9.8 FL (9.6-12.0); Monocytes % 13.5 % (1.7-12.7); Neutrophils % 57.9 % (38.7-73.9); Platelet Count 131 T/CUMM (130-400); Red Blood Count 2.65 MC/CUMM (3.8-5.5); Red Cell Distribution Width 16.3 % (9.3-17.3); White Blood Count 5.2 T/CUMM (4-12)
[2019-10-09 06:57] LABS: Calcium 7.4 MG/DL (8.5-10.1); Osmolality,Calculated 289.1 MOS/KG (273-304)
[2019-10-09 06:59] LABS: % Iron Saturation 20.3 % (18-50)
[2019-10-09 07:19] LABS: Parathyroid Hormone Intact 463.1 PG/ML (18.4-80.1)
[2019-10-09] MEDS: INSULIN REGULAR 100 UNIT/ML SUBCUT SCH ×2 (11:05→14:53)
[2019-10-09] MEDS: ASPIRIN EC 81 MG TABLET PO SCH (16:15)
[2019-10-09] MEDS: IRON (CARBONYL) 45 MG TABLET PO SCH (16:15)
[2019-10-09] MEDS: carvediloL 3.125 MG TABLET PO SCH (16:15)
[2019-10-09 16:20] VITALS: BP 181/87
== END 2019-10-09 16:57 | disposition home or self-care (01) | DRG 469 ==
LOC: N.CC 22:07 → SUATTDRO 22:07 → N.2E 10-07 15:39
PROVIDERS: ADMIT Internal Medicine; ATTEND Hospitalist

== ENCOUNTER 2020-07-14 12:59 | Inpatient (IN) ==
[2020-07-14 16:39] LABS: Basophils % 0.1 % (0.0-0.8); Hematocrit 22.9 VOL% (35.7-47.0); Hemoglobin 7.3 GM/DL (12.0-16.0); Immature Granulocytes % 1.5 %; Immature Granulocytes Absolute 0.16 #; Lymphocytes # 0.5 10*3/uL (1.4-4.0); Mean Corpuscular HGB Conc 31.9 GM/DL (32-36); Mean Platelet Volume 11.1 FL (9.6-12.0); NRBC # 0.02 10*3/uL; Neutrophils % 89.4 % (38.7-73.9); Platelet Count 112 T/CUMM (130-400); Red Blood Count 2.36 MC/CUMM (3.8-5.5); Red Cell Distribution Width 15.6 % (9.3-17.3); White Blood Count 10.8 T/CUMM (4-12)
[2020-07-14] MEDS ORDERED: PIPERACILLIN/TAZOBACTAM 3,375 MG in SODIUM CHLORIDE 0.9% 100 ML IV SCH (17:00)
[2020-07-14 17:14] LABS: Albumin 2.4 G/DL (3.4-5.0); Bilirubin,Total 1.1 MG/DL (0.2-1.0); Calcium 7.3 MG/DL (8.5-10.1); Osmolality,Calculated 280.2 MOS/KG (273-304); Total Protein 6.4 G/DL (6.4-8.3); Troponin I 0.643 NG/ML (0.00-0.045)
[2020-07-14] MEDS ORDERED: VANCOMYCIN INJ 500 MG in SODIUM CHLORIDE 0.9% 100 ML IV PRN (18:03)
[2020-07-14] MEDS: PIPERACILLIN/TAZOBACTAM 3,375 MG in SODIUM CHLORIDE 0.9% 100 ML IV SCH (18:12)
[2020-07-14 18:20] LABS: Hepatitis B Core IgM Quant 0.09 Index; Hepatitis B Surface Ag Quant < 0.10 Index; Hepatitis B Surface Ag Result Negative (Negative); Hepatitis C Virus Ab Result Negative (Negative)
[2020-07-14] MEDS ORDERED: ENOXAPARIN 30 MG/0.3 ML SYRINGE SUBCUT SCH (21:00)
[2020-07-14] MEDS ORDERED: VANCOMYCIN INJ 1,500 MG in SODIUM CHLORIDE 0.9% 500 ML IV ONE (22:00)
[2020-07-14] MEDS ORDERED: ONDANSETRON 4 MG/2 ML VIAL IV ONE (22:43)
[2020-07-15 04:42] LABS: Basophils % 0.2 % (0.0-0.8); Eosinophils % 0.2 % (0.00-10.9); Hemoglobin 7.1 GM/DL (12.0-16.0); Immature Granulocytes % 0.8 %; Lymphocytes # 0.4 10*3/uL (1.4-4.0); Lymphocytes % 3.3 % (21.3-54.2); Mean Corpuscular HGB Conc 32.3 GM/DL (32-36); Mean Corpuscular Volume 95.2 FL (87-102); Mean Platelet Volume 10.8 FL (9.6-12.0); Monocytes % 5.6 % (1.7-12.7); NRBC # 0.02 10*3/uL; Neutrophils % 89.9 % (38.7-73.9); Platelet Count 170 T/CUMM (130-400); Red Blood Count 2.31 MC/CUMM (3.8-5.5); Red Cell Distribution Width 15.7 % (9.3-17.3)
[2020-07-15 05:19] LABS: Albumin 2.4 G/DL (3.4-5.0); Calcium 7.2 MG/DL (8.5-10.1); Osmolality,Calculated 280.2 MOS/KG (273-304); Total Protein 6.2 G/DL (6.4-8.3)
[2020-07-15 05:24] LABS: Band Neutrophils 4 % (0-10); Lymphocytes 2 % (20-55); Metamyelocytes 1 %; Segmented Neutrophils 88 % (50-85); Total Cells Counted 100
[2020-07-15 05:25] LABS: Hypochromasia 1+; Platelet Estimate Normal
[2020-07-15] MEDS: PIPERACILLIN/TAZOBACTAM 3,375 MG in SODIUM CHLORIDE 0.9% 100 ML IV SCH ×2 (06:43→17:57)
[2020-07-15] MEDS ORDERED: FUROSEMIDE 40 MG/4 ML VIAL IV ONE (08:41)
[2020-07-15] MEDS: PANTOPRAZOLE 40 MG TABLET PO SCH (09:18)
[2020-07-15] MEDS: ONDANSETRON 4 MG/2 ML VIAL IV PRN (12:27)
[2020-07-15] MEDS ORDERED: ALBUTEROL/IPRATROPIUM 3 ML NEB RESP TX PRN (12:45)
[2020-07-15] MEDS ORDERED: VANCOMYCIN INJ 500 MG in SODIUM CHLORIDE 0.9% 100 ML IV ONE (17:00)
[2020-07-15] MEDS ORDERED: SODIUM BICARBONATE 50 MEQ/50 ML VIAL IV ONE (20:45)
[2020-07-15] MEDS ORDERED: LACTATED RINGERS 2,000 ML IV ONE (20:47)
[2020-07-16] MEDS: ONDANSETRON 4 MG/2 ML VIAL IV PRN (00:40)
[2020-07-16] MEDS: PIPERACILLIN/TAZOBACTAM 3,375 MG in SODIUM CHLORIDE 0.9% 100 ML IV SCH ×2 (06:17→17:14)
[2020-07-16] MEDS: PANTOPRAZOLE 40 MG TABLET PO SCH (09:13)
[2020-07-16 09:49] LABS: Basophils % 0.4 % (0.0-0.8); Eosinophils # 0.1 10*3/uL (0.0-0.87); Eosinophils % 0.9 % (0.00-10.9); Hematocrit 29.1 VOL% (35.7-47.0); Immature Granulocytes % 1.7 %; Immature Granulocytes Absolute 0.17 #; Lymphocytes # 0.5 10*3/uL (1.4-4.0); Mean Corpuscular HGB Conc 32.6 GM/DL (32-36); Mean Corpuscular Volume 95.1 FL (87-102); Mean Platelet Volume 10.1 FL (9.6-12.0); Monocytes % 6.4 % (1.7-12.7); NRBC # 0.08 10*3/uL; Neutrophils % 85.6 % (38.7-73.9); Platelet Count 175 T/CUMM (130-400); Red Cell Distribution Width 15.6 % (9.3-17.3); White Blood Count 10.1 T/CUMM (4-12)
[2020-07-16 09:51] LABS: Red Blood Count 3.06 MC/CUMM (3.8-5.5)
[2020-07-16 09:53] LABS: Hemoglobin 9.5 GM/DL (12.0-16.0)
[2020-07-16] MEDS: lisinopriL 10 MG TABLET PO SCH (10:18)
[2020-07-16] MEDS: carvediloL 3.125 MG TABLET PO SCH ×2 (10:18→20:55)
[2020-07-16 10:19] LABS: Albumin 2.2 G/DL (3.4-5.0); Bilirubin,Total 1.1 MG/DL (0.2-1.0); Calcium 7.6 MG/DL (8.5-10.1); Osmolality,Calculated 281.1 MOS/KG (273-304); Total Protein 6.3 G/DL (6.4-8.3)
[2020-07-17] MEDS: PIPERACILLIN/TAZOBACTAM 3,375 MG in SODIUM CHLORIDE 0.9% 100 ML IV SCH ×2 (04:59→17:17)
[2020-07-17 06:48] LABS: Basophils % 0.5 % (0.0-0.8); Eosinophils # 0.2 10*3/uL (0.0-0.87); Eosinophils % 2.3 % (0.00-10.9); Hematocrit 28.3 VOL% (35.7-47.0); Immature Granulocytes % 1.7 %; Immature Granulocytes Absolute 0.13 #; Lymphocytes # 0.5 10*3/uL (1.4-4.0); Mean Corpuscular HGB Conc 31.8 GM/DL (32-36); Mean Platelet Volume 10.2 FL (9.6-12.0); Monocytes % 10.6 % (1.7-12.7); Neutrophils % 77.9 % (38.7-73.9); Platelet Count 150 T/CUMM (130-400); Red Blood Count 2.98 MC/CUMM (3.8-5.5); Red Cell Distribution Width 15.6 % (9.3-17.3); White Blood Count 7.5 T/CUMM (4-12)
[2020-07-17 07:18] LABS: Bilirubin,Total 1.2 MG/DL (0.2-1.0); Calcium 7.8 MG/DL (8.5-10.1); Osmolality,Calculated 276.5 MOS/KG (273-304); Total Protein 6.2 G/DL (6.4-8.3)
[2020-07-17] MEDS: carvediloL 3.125 MG TABLET PO SCH ×2 (10:09→23:19)
[2020-07-17] MEDS: lisinopriL 10 MG TABLET PO SCH (10:09)
[2020-07-17] MEDS: PANTOPRAZOLE 40 MG TABLET PO SCH (10:09)
[2020-07-17] MEDS: FUROSEMIDE 40 MG TABLET PO SCH (12:37)
[2020-07-17] MEDS: SEVELAMER CARBONATE 800 MG TABLET PO SCH ×2 (12:37→17:18)
[2020-07-17 12:50] LABS: Basophils # 0.1 10*3/uL (0.0-0.2); Basophils % 0.6 % (0.0-0.8); Eosinophils # 0.2 10*3/uL (0.0-0.87); Eosinophils % 1.7 % (0.00-10.9); Hematocrit 29.2 VOL% (35.7-47.0); Hemoglobin 9.5 GM/DL (12.0-16.0); Immature Granulocytes % 1.8 %; Immature Granulocytes Absolute 0.19 #; Lymphocytes # 0.7 10*3/uL (1.4-4.0); Lymphocytes % 6.9 % (21.3-54.2); Mean Corpuscular HGB Conc 32.5 GM/DL (32-36); Mean Platelet Volume 10.4 FL (9.6-12.0); Monocytes % 10.3 % (1.7-12.7); NRBC # 0.08 10*3/uL; Neutrophils % 78.7 % (38.7-73.9); Platelet Count 145 T/CUMM (130-400); Red Blood Count 3.14 MC/CUMM (3.8-5.5); Red Cell Distribution Width 15.7 % (9.3-17.3); White Blood Count 10.4 T/CUMM (4-12)
[2020-07-17 13:02] LABS: Calcium 7.8 MG/DL (8.5-10.1); Osmolality,Calculated 279.5 MOS/KG (273-304)
[2020-07-18] MEDS: PIPERACILLIN/TAZOBACTAM 3,375 MG in SODIUM CHLORIDE 0.9% 100 ML IV SCH (06:09)
[2020-07-18] MEDS ORDERED: LIDOCAINE 1%/EPI INJ 20 ML VIAL ONE (06:19)
[2020-07-18] MEDS: carvediloL 3.125 MG TABLET PO SCH ×2 (06:45→09:36)
[2020-07-18] MEDS ORDERED: MIDAZOLAM 2 MG/2 ML VIAL ONE (07:39)
[2020-07-18] MEDS ORDERED: ETOMIDATE 40 MG/20 ML VIAL IV ONE (07:39)
[2020-07-18] MEDS ORDERED: fentaNYL 100 MCG/2 ML VIAL ONE (07:39)
[2020-07-18 09:06] LABS: Basophils # 0.1 10*3/uL (0.0-0.2); Basophils % 0.6 % (0.0-0.8); Eosinophils # 0.2 10*3/uL (0.0-0.87); Eosinophils % 2.2 % (0.00-10.9); Hematocrit 28.3 VOL% (35.7-47.0); Hemoglobin 9.1 GM/DL (12.0-16.0); Immature Granulocytes % 2.4 %; Immature Granulocytes Absolute 0.25 #; Lymphocytes # 0.8 10*3/uL (1.4-4.0); Lymphocytes % 7.8 % (21.3-54.2); Mean Corpuscular HGB Conc 32.2 GM/DL (32-36); Mean Corpuscular Volume 94.6 FL (87-102); Mean Platelet Volume 10.6 FL (9.6-12.0); Monocytes % 9.9 % (1.7-12.7); NRBC # 0.07 10*3/uL; Neutrophils % 77.1 % (38.7-73.9); Platelet Count 126 T/CUMM (130-400); Red Blood Count 2.99 MC/CUMM (3.8-5.5); Red Cell Distribution Width 15.6 % (9.3-17.3); White Blood Count 10.3 T/CUMM (4-12)
[2020-07-18 09:27] LABS: Calcium 7.8 MG/DL (8.5-10.1); Osmolality,Calculated 278.2 MOS/KG (273-304)
[2020-07-18] MEDS: FUROSEMIDE 40 MG TABLET PO SCH (09:35)
[2020-07-18] MEDS: SEVELAMER CARBONATE 800 MG TABLET PO SCH ×3 (09:35→17:39)
[2020-07-18] MEDS: ATORVASTATIN 20 MG TABLET PO SCH (09:35)
[2020-07-18] MEDS: PANTOPRAZOLE 40 MG TABLET PO SCH (09:35)
[2020-07-18] MEDS: lisinopriL 10 MG TABLET PO SCH (09:36)
[2020-07-18] MEDS ORDERED: DEXTROSE 50% 25 GM/50 ML VIAL IV PRN (16:23)
[2020-07-18] MEDS ORDERED: GLUCAGON 1 MG VIAL IM PRN (16:23)
[2020-07-18] MEDS ORDERED: ceFAZolin 2,000 MG in PREMIX 1 EACH IV ONE (17:00)
[2020-07-18] MEDS: INSULIN LISPRO 100 UNIT/ML SUBCUT SCH ×2 (17:42→23:49)
[2020-07-19] MEDS: carvediloL 3.125 MG TABLET PO SCH ×3 (00:41→21:19)
[2020-07-19 05:43] LABS: Basophils # 0.1 10*3/uL (0.0-0.2); Basophils % 0.6 % (0.0-0.8); Eosinophils # 0.3 10*3/uL (0.0-0.87); Eosinophils % 3.3 % (0.00-10.9); Hematocrit 26.8 VOL% (35.7-47.0); Hemoglobin 8.5 GM/DL (12.0-16.0); Immature Granulocytes % 2.7 %; Immature Granulocytes Absolute 0.28 #; Lymphocytes # 1.2 10*3/uL (1.4-4.0); Lymphocytes % 11.8 % (21.3-54.2); Mean Corpuscular HGB Conc 31.7 GM/DL (32-36); Mean Corpuscular Volume 95.7 FL (87-102); Mean Platelet Volume 10.5 FL (9.6-12.0); Monocytes % 12.6 % (1.7-12.7); NRBC # 0.03 10*3/uL; Platelet Count 122 T/CUMM (130-400); Red Cell Distribution Width 15.6 % (9.3-17.3); White Blood Count 10.3 T/CUMM (4-12)
[2020-07-19 06:05] LABS: Band Neutrophils 3 % (0-10); Eosinophils 1 % (0-10); Lymphocytes 16 % (20-55); Nucleated Red Blood Cells 1 (0-5); Segmented Neutrophils 67 % (50-85); Total Cells Counted 100
[2020-07-19 06:06] LABS: Hypochromasia 1+; Microcytosis 1+; Platelet Estimate Adequate
[2020-07-19 06:31] LABS: Calcium 7.7 MG/DL (8.5-10.1); Osmolality,Calculated 274.5 MOS/KG (273-304)
[2020-07-19] MEDS: INSULIN LISPRO 100 UNIT/ML SUBCUT SCH ×3 (07:33→16:05)
[2020-07-19] MEDS: SEVELAMER CARBONATE 800 MG TABLET PO SCH ×3 (08:00→17:39)
[2020-07-19] MEDS: lisinopriL 10 MG TABLET PO SCH (09:00)
[2020-07-19] MEDS: PANTOPRAZOLE 40 MG TABLET PO SCH (09:00)
[2020-07-19] MEDS: FUROSEMIDE 40 MG TABLET PO SCH (09:00)
[2020-07-19] MEDS: ATORVASTATIN 20 MG TABLET PO SCH (09:00)
[2020-07-19] MEDS: ceFAZolin 2,000 MG in PREMIX 1 EACH IV SCH (17:39)
[2020-07-20] MEDS: INSULIN LISPRO 100 UNIT/ML SUBCUT SCH ×5 (00:54→23:05)
[2020-07-20 05:58] LABS: Calcium 7.8 MG/DL (8.5-10.1)
[2020-07-20 06:46] LABS: Basophils # 0.1 10*3/uL (0.0-0.2); Basophils % 0.4 % (0.0-0.8); Eosinophils # 0.3 10*3/uL (0.0-0.87); Eosinophils % 2.2 % (0.00-10.9); Hematocrit 33.2 VOL% (35.7-47.0); Immature Granulocytes % 2.8 %; Lymphocytes % 7.2 % (21.3-54.2); Mean Corpuscular HGB Conc 32.2 GM/DL (32-36); Mean Corpuscular Volume 95.1 FL (87-102); Mean Platelet Volume 10.7 FL (9.6-12.0); Monocytes % 7.3 % (1.7-12.7); NRBC # 0.03 10*3/uL; Neutrophils % 80.1 % (38.7-73.9); Platelet Count 105 T/CUMM (130-400); Red Cell Distribution Width 15.9 % (9.3-17.3)
[2020-07-20 06:58] LABS: Red Blood Count 3.49 MC/CUMM (3.8-5.5); White Blood Count 14.4 T/CUMM (4-12)
[2020-07-20 06:59] LABS: Hemoglobin 10.7 GM/DL (12.0-16.0)
[2020-07-20 07:01] LABS: Microcytosis 1+; Platelet Estimate Decreased
[2020-07-20] MEDS: SEVELAMER CARBONATE 800 MG TABLET PO SCH ×3 (08:00→18:10)
[2020-07-20] MEDS: FUROSEMIDE 40 MG TABLET PO SCH (09:00)
[2020-07-20] MEDS: ATORVASTATIN 20 MG TABLET PO SCH (09:00)
[2020-07-20] MEDS: PANTOPRAZOLE 40 MG TABLET PO SCH (09:00)
[2020-07-20] MEDS: lisinopriL 10 MG TABLET PO SCH (09:53)
[2020-07-20] MEDS: carvediloL 3.125 MG TABLET PO SCH ×2 (09:53→22:00)
[2020-07-20 12:50] LABS: ABG Base Excess 0.9 MMOL/L (-2.5-2.5); ABG HCO3 25.3 MMOL/L (20-26); ABG PCO2 28.5 MM HG (35-48); ABG PH 7.516 (7.35-7.45); ABG TCO2 20.7 MMOL/L (23-27); Glucose Heart Surgery 188 MG/DL (74-106); Hematocrit Heart Surgery 32.5 PERCENT (37-47); Hemoglobin Heart Surgery 10.5 G/DL (12.0-16.0); Ionized Calcium Arterial 0.96 MMOL/L (1.21-1.46); PCO2 Patient Temp Arterial 28.5 MMHG; PH Patient Temp Arterial 7.516; Patient Temperature 37 CELCIUS; Potassium Heart/CVR 3.8 MMOL/L (3.5-5.1); Sodium Heart/CVR 137 MMOL/L (135-145)
[2020-07-20] MEDS ORDERED: fentaNYL 100 MCG/2 ML VIAL ONE (13:33)
[2020-07-20] MEDS ORDERED: ePHEDrine 50 MG/ML VIAL ONE (13:33)
[2020-07-20] MEDS ORDERED: MIDAZOLAM 2 MG/2 ML VIAL ONE (13:33)
[2020-07-20] MEDS ORDERED: LIDOCAINE 2% 5 ML VIAL ONE (13:33)
[2020-07-20] MEDS ORDERED: SEVOFLURANE 1 UNIT/15 MINUTE INH ONE (13:33)
[2020-07-20] MEDS ORDERED: EPINEPHrine 1 MG/10 ML SYRINGE ONE (13:33)
[2020-07-20] MEDS ORDERED: ATROPINE 1 MG/10 ML SYRINGE ONE (13:34)
[2020-07-20] MEDS ORDERED: GLYCOPYRROLATE 0.4 MG/2 ML VIAL ONE (13:34)
[2020-07-20] MEDS ORDERED: SODIUM BICARBONATE 50 MEQ/50 ML VIAL IV ONE (13:34)
[2020-07-20] MEDS ORDERED: ASPIRIN CHEW 81 MG TABLET PO ONE ×2 (16:37→18:30)
[2020-07-20 17:14] LABS: Troponin I 0.739 NG/ML (0.00-0.045)
[2020-07-20] MEDS ORDERED: ASPIRIN EC 325 MG TABLET PO ONE (18:15)
[2020-07-21 05:06] LABS: Basophils # 0.1 10*3/uL (0.0-0.2); Basophils % 0.6 % (0.0-0.8); Eosinophils # 0.2 10*3/uL (0.0-0.87); Eosinophils % 1.9 % (0.00-10.9); Hematocrit 29.2 VOL% (35.7-47.0); Hemoglobin 9.4 GM/DL (12.0-16.0); Immature Granulocytes % 3.6 %; Immature Granulocytes Absolute 0.44 #; Lymphocytes # 1.3 10*3/uL (1.4-4.0); Lymphocytes % 10.2 % (21.3-54.2); Mean Corpuscular HGB Conc 32.2 GM/DL (32-36); Mean Corpuscular Volume 95.1 FL (87-102); Mean Platelet Volume 10.6 FL (9.6-12.0); Monocytes % 7.4 % (1.7-12.7); Neutrophils % 76.3 % (38.7-73.9); Platelet Count 114 T/CUMM (130-400); Red Blood Count 3.07 MC/CUMM (3.8-5.5); Red Cell Distribution Width 15.8 % (9.3-17.3); White Blood Count 12.3 T/CUMM (4-12)
[2020-07-21 05:20] LABS: Osmolality,Calculated 276.1 MOS/KG (273-304)
[2020-07-21 05:59] LABS: Eosinophils 3 % (0-10); Hypochromasia 1+; Lymphocytes 12 % (20-55); Microcytosis 1+; Platelet Estimate Decreased; Segmented Neutrophils 73 % (50-85); Total Cells Counted 100
[2020-07-21] MEDS: INSULIN LISPRO 100 UNIT/ML SUBCUT SCH ×4 (09:19→22:59)
[2020-07-21] MEDS ORDERED: hydrALAZINE 20 MG/1 ML VIAL IV PRN (09:43)
[2020-07-21] MEDS: PANTOPRAZOLE 40 MG TABLET PO SCH (09:45)
[2020-07-21] MEDS: carvediloL 3.125 MG TABLET PO SCH (09:45)
[2020-07-21] MEDS: ASPIRIN EC 81 MG TABLET PO SCH (09:45)
[2020-07-21] MEDS: SEVELAMER CARBONATE 800 MG TABLET PO SCH ×3 (09:45→17:25)
[2020-07-21] MEDS: ATORVASTATIN 20 MG TABLET PO SCH (09:45)
[2020-07-21] MEDS: FUROSEMIDE 40 MG TABLET PO SCH (09:45)
[2020-07-21] MEDS: lisinopriL 10 MG TABLET PO SCH (09:47)
[2020-07-21] MEDS: carvediloL 6.25 MG TABLET PO SCH (21:10)
[2020-07-22 06:29] LABS: Calcium 7.6 MG/DL (8.5-10.1); Osmolality,Calculated 278.2 MOS/KG (273-304)
[2020-07-22 06:35] LABS: Basophils # 0.1 10*3/uL (0.0-0.2); Basophils % 0.4 % (0.0-0.8); Eosinophils # 0.3 10*3/uL (0.0-0.87); Eosinophils % 2.8 % (0.00-10.9); Hematocrit 25.9 VOL% (35.7-47.0); Hemoglobin 8.5 GM/DL (12.0-16.0); Immature Granulocytes % 2.7 %; Immature Granulocytes Absolute 0.32 #; Lymphocytes # 1.1 10*3/uL (1.4-4.0); Lymphocytes % 9.4 % (21.3-54.2); Mean Corpuscular HGB Conc 32.8 GM/DL (32-36); Mean Corpuscular Volume 92.5 FL (87-102); Mean Platelet Volume 10.7 FL (9.6-12.0); Monocytes % 7.6 % (1.7-12.7); Neutrophils % 77.1 % (38.7-73.9); Platelet Count 146 T/CUMM (130-400); Red Cell Distribution Width 15.9 % (9.3-17.3); White Blood Count 11.6 T/CUMM (4-12)
[2020-07-22] MEDS: INSULIN LISPRO 100 UNIT/ML SUBCUT SCH ×4 (08:25→21:22)
[2020-07-22 08:38] LABS: Band Neutrophils 1 % (0-10); Eosinophils 1 % (0-10); Lymphocytes 7 % (20-55); Platelet Estimate Adequate; Polychromasia Slight; Segmented Neutrophils 89 % (50-85); Total Cells Counted 100
[2020-07-22] MEDS: FUROSEMIDE 40 MG TABLET PO SCH (09:12)
[2020-07-22] MEDS: ATORVASTATIN 20 MG TABLET PO SCH (09:12)
[2020-07-22] MEDS: SEVELAMER CARBONATE 800 MG TABLET PO SCH ×3 (09:12→17:20)
[2020-07-22] MEDS: carvediloL 6.25 MG TABLET PO SCH ×2 (09:13→21:15)
[2020-07-22] MEDS: lisinopriL 10 MG TABLET PO SCH (09:13)
[2020-07-22] MEDS: ASPIRIN EC 81 MG TABLET PO SCH (09:13)
[2020-07-22] MEDS: PANTOPRAZOLE 40 MG TABLET PO SCH (09:13)
[2020-07-23 03:52] LABS: Basophils # 0.1 10*3/uL (0.0-0.2); Basophils % 0.7 % (0.0-0.8); Eosinophils # 0.3 10*3/uL (0.0-0.87); Eosinophils % 3.3 % (0.00-10.9); Hematocrit 28.5 VOL% (35.7-47.0); Hemoglobin 9.5 GM/DL (12.0-16.0); Immature Granulocytes % 2.5 %; Immature Granulocytes Absolute 0.19 #; Lymphocytes # 0.9 10*3/uL (1.4-4.0); Lymphocytes % 11.5 % (21.3-54.2); Mean Corpuscular HGB Conc 33.3 GM/DL (32-36); Mean Corpuscular Volume 91.6 FL (87-102); Mean Platelet Volume 9.9 FL (9.6-12.0); Monocytes % 9.3 % (1.7-12.7); Neutrophils % 72.7 % (38.7-73.9); Platelet Count 141 T/CUMM (130-400); Red Blood Count 3.11 MC/CUMM (3.8-5.5); Red Cell Distribution Width 15.9 % (9.3-17.3); White Blood Count 7.7 T/CUMM (4-12)
[2020-07-23 04:24] LABS: Calcium 7.2 MG/DL (8.5-10.1); Osmolality,Calculated 282.1 MOS/KG (273-304)
[2020-07-23] MEDS: INSULIN LISPRO 100 UNIT/ML SUBCUT SCH ×4 (08:54→20:09)
[2020-07-23] MEDS: SEVELAMER CARBONATE 800 MG TABLET PO SCH ×3 (09:03→16:45)
[2020-07-23] MEDS: FUROSEMIDE 40 MG TABLET PO SCH (09:03)
[2020-07-23] MEDS: lisinopriL 10 MG TABLET PO SCH (09:03)
[2020-07-23] MEDS: carvediloL 6.25 MG TABLET PO SCH ×2 (09:03→21:06)
[2020-07-23] MEDS: ATORVASTATIN 20 MG TABLET PO SCH (09:03)
[2020-07-23] MEDS: ASPIRIN EC 81 MG TABLET PO SCH (09:04)
[2020-07-23] MEDS: PANTOPRAZOLE 40 MG TABLET PO SCH (09:04)
[2020-07-23] MEDS: DOXYCYCLINE HYCLATE 100 MG CAPSULE PO SCH ×2 (15:05→21:06)
[2020-07-24] MEDS ORDERED: ceFAZolin 1,000 MG in SYRINGE 1 EACH IV ONE (06:48)
[2020-07-24] MEDS: SEVELAMER CARBONATE 800 MG TABLET PO SCH ×3 (08:00→19:40)
[2020-07-24 08:06] LABS: Basophils % 0.5 % (0.0-0.8); Eosinophils # 0.2 10*3/uL (0.0-0.87); Eosinophils % 1.8 % (0.00-10.9); Hematocrit 25.5 VOL% (35.7-47.0); Hemoglobin 8.2 GM/DL (12.0-16.0); Immature Granulocytes Absolute 0.17 #; Lymphocytes # 0.9 10*3/uL (1.4-4.0); Lymphocytes % 10.6 % (21.3-54.2); Mean Corpuscular HGB Conc 32.2 GM/DL (32-36); Mean Corpuscular Volume 93.4 FL (87-102); Mean Platelet Volume 10.1 FL (9.6-12.0); Monocytes % 8.7 % (1.7-12.7); Neutrophils % 76.4 % (38.7-73.9); Platelet Count 205 T/CUMM (130-400); Red Blood Count 2.73 MC/CUMM (3.8-5.5); Red Cell Distribution Width 16.4 % (9.3-17.3); White Blood Count 8.4 T/CUMM (4-12)
[2020-07-24 08:24] LABS: Calcium 7.6 MG/DL (8.5-10.1); Osmolality,Calculated 275.7 MOS/KG (273-304)
[2020-07-24 08:28] LABS: Albumin 2.2 G/DL (3.4-5.0); Bilirubin,Direct 0.28 MG/DL (0.0-0.20); Bilirubin,Indirect 0.1 MG/DL (0.0-1.0); Bilirubin,Total 0.4 MG/DL (0.2-1.0); Total Protein 7.1 G/DL (6.4-8.3)
[2020-07-24] MEDS: INSULIN LISPRO 100 UNIT/ML SUBCUT SCH ×4 (08:42→21:40)
[2020-07-24] MEDS: carvediloL 6.25 MG TABLET PO SCH ×2 (08:51→21:39)
[2020-07-24] MEDS: lisinopriL 10 MG TABLET PO SCH (08:51)
[2020-07-24] MEDS: DOXYCYCLINE HYCLATE 100 MG CAPSULE PO SCH ×2 (09:00→21:39)
[2020-07-24] MEDS: FUROSEMIDE 40 MG TABLET PO SCH (09:00)
[2020-07-24] MEDS: ASPIRIN EC 81 MG TABLET PO SCH (09:00)
[2020-07-24] MEDS: PANTOPRAZOLE 40 MG TABLET PO SCH (09:00)
[2020-07-24] MEDS ORDERED: BUPIVACAINE MPF 0.25% 30 ML VIAL ONE (11:17)
[2020-07-24] MEDS ORDERED: LIDOCAINE 1%/EPI INJ 20 ML VIAL ONE (11:18)
[2020-07-24] MEDS ORDERED: HEPARIN 5,000 UNIT/1 ML VIAL ONE (11:18)
[2020-07-24] MEDS ORDERED: fentaNYL 100 MCG/2 ML VIAL ONE (13:30)
[2020-07-24] MEDS ORDERED: MIDAZOLAM 2 MG/2 ML VIAL ONE (13:30)
[2020-07-24] MEDS ORDERED: SODIUM CHLORIDE 0.9% 100 ML IV ONE (13:30)
[2020-07-24] MEDS ORDERED: ONDANSETRON 4 MG/2 ML VIAL ONE (13:30)
[2020-07-24] MEDS: ceFAZolin 2,000 MG in PREMIX 1 EACH IV SCH (19:40)
[2020-07-25 04:30] LABS: Basophils # 0.1 10*3/uL (0.0-0.2); Basophils % 0.5 % (0.0-0.8); Eosinophils # 0.1 10*3/uL (0.0-0.87); Eosinophils % 1.4 % (0.00-10.9); Immature Granulocytes % 1.8 %; Immature Granulocytes Absolute 0.16 #; Lymphocytes # 0.8 10*3/uL (1.4-4.0); Lymphocytes % 8.9 % (21.3-54.2); Mean Corpuscular Volume 95.4 FL (87-102); Mean Platelet Volume 10.3 FL (9.6-12.0); Monocytes % 9.1 % (1.7-12.7); Neutrophils % 78.3 % (38.7-73.9); Platelet Count 190 T/CUMM (130-400); Red Blood Count 2.62 MC/CUMM (3.8-5.5); Red Cell Distribution Width 16.4 % (9.3-17.3); White Blood Count 9.1 T/CUMM (4-12)
[2020-07-25 05:04] LABS: Albumin 1.9 G/DL (3.4-5.0); Bilirubin,Direct 0.18 MG/DL (0.0-0.20); Bilirubin,Indirect 0.8 MG/DL (0.0-1.0); Calcium 7.7 MG/DL (8.5-10.1); Osmolality,Calculated 271.2 MOS/KG (273-304); Risk Ratio 2.68; Total Protein 6.4 G/DL (6.4-8.3); VLDL CHOLESTEROL 31.4 MG/DL
[2020-07-25] MEDS: INSULIN LISPRO 100 UNIT/ML SUBCUT SCH ×4 (07:44→21:06)
[2020-07-25] MEDS: FUROSEMIDE 40 MG TABLET PO SCH (09:23)
[2020-07-25] MEDS: SEVELAMER CARBONATE 800 MG TABLET PO SCH ×3 (09:23→17:21)
[2020-07-25] MEDS: carvediloL 6.25 MG TABLET PO SCH (09:23)
[2020-07-25] MEDS: ASPIRIN EC 81 MG TABLET PO SCH (09:23)
[2020-07-25] MEDS: lisinopriL 10 MG TABLET PO SCH (09:24)
[2020-07-25] MEDS: DOXYCYCLINE HYCLATE 100 MG CAPSULE PO SCH ×2 (09:24→21:05)
[2020-07-25] MEDS: PANTOPRAZOLE 40 MG TABLET PO SCH (09:24)
[2020-07-25] MEDS ORDERED: POTASSIUM CHLORIDE 20 MEQ TABLET PO ONE (10:00)
[2020-07-25] MEDS: carvediloL 12.5 MG TABLET PO SCH (21:05)
[2020-07-26 05:49] LABS: Basophils # 0.1 10*3/uL (0.0-0.2); Basophils % 0.7 % (0.0-0.8); Eosinophils # 0.2 10*3/uL (0.0-0.87); Eosinophils % 1.8 % (0.00-10.9); Hematocrit 24.8 VOL% (35.7-47.0); Hemoglobin 8.1 GM/DL (12.0-16.0); Immature Granulocytes % 1.4 %; Immature Granulocytes Absolute 0.12 #; Lymphocytes % 11.4 % (21.3-54.2); Mean Corpuscular HGB Conc 32.7 GM/DL (32-36); Mean Corpuscular Volume 94.3 FL (87-102); Monocytes % 13.6 % (1.7-12.7); Neutrophils % 71.1 % (38.7-73.9); Platelet Count 208 T/CUMM (130-400); Red Blood Count 2.63 MC/CUMM (3.8-5.5); White Blood Count 8.5 T/CUMM (4-12)
[2020-07-26 06:02] LABS: Calcium 7.5 MG/DL (8.5-10.1); Osmolality,Calculated 276.1 MOS/KG (273-304)
[2020-07-26 06:03] LABS: Calcium 7.5 MG/DL (8.5-10.1); Osmolality,Calculated 274.2 MOS/KG (273-304)
[2020-07-26] MEDS: INSULIN LISPRO 100 UNIT/ML SUBCUT SCH ×4 (07:42→21:35)
[2020-07-26] MEDS: carvediloL 12.5 MG TABLET PO SCH ×2 (09:45→21:34)
[2020-07-26] MEDS: PANTOPRAZOLE 40 MG TABLET PO SCH (09:45)
[2020-07-26] MEDS: lisinopriL 10 MG TABLET PO SCH (09:45)
[2020-07-26] MEDS: ASPIRIN EC 81 MG TABLET PO SCH (09:45)
[2020-07-26] MEDS: FUROSEMIDE 40 MG TABLET PO SCH (09:45)
[2020-07-26] MEDS: SEVELAMER CARBONATE 800 MG TABLET PO SCH ×3 (09:45→17:25)
[2020-07-26] MEDS: DOXYCYCLINE HYCLATE 100 MG CAPSULE PO SCH ×2 (09:45→21:34)
[2020-07-26] MEDS ORDERED: HEPARIN 10,000 UNIT/10 ML VIAL ONE (09:48)
[2020-07-26] MEDS: ceFAZolin 2,000 MG in PREMIX 1 EACH IV SCH (17:26)
[2020-07-26] MEDS: ONDANSETRON 4 MG/2 ML VIAL IV PRN (23:18)
[2020-07-27 05:37] LABS: Basophils # 0.1 10*3/uL (0.0-0.2); Basophils % 0.9 % (0.0-0.8); Eosinophils # 0.1 10*3/uL (0.0-0.87); Eosinophils % 1.6 % (0.00-10.9); Hematocrit 24.5 VOL% (35.7-47.0); Hemoglobin 7.9 GM/DL (12.0-16.0); Immature Granulocytes % 1.2 %; Lymphocytes # 1.1 10*3/uL (1.4-4.0); Lymphocytes % 12.4 % (21.3-54.2); Mean Corpuscular HGB Conc 32.2 GM/DL (32-36); Mean Platelet Volume 9.9 FL (9.6-12.0); Monocytes % 11.9 % (1.7-12.7); Platelet Count 211 T/CUMM (130-400); Red Blood Count 2.58 MC/CUMM (3.8-5.5); White Blood Count 8.5 T/CUMM (4-12)
[2020-07-27 05:49] LABS: Calcium 7.6 MG/DL (8.5-10.1); Calcium 8.2 MG/DL (8.5-10.1); Osmolality,Calculated 271.2 MOS/KG (273-304); Osmolality,Calculated 273.1 MOS/KG (273-304)
[2020-07-27] MEDS: INSULIN LISPRO 100 UNIT/ML SUBCUT SCH ×4 (07:51→21:02)
[2020-07-27] MEDS: SEVELAMER CARBONATE 800 MG TABLET PO SCH ×3 (08:21→16:56)
[2020-07-27] MEDS: lisinopriL 10 MG TABLET PO SCH (08:22)
[2020-07-27] MEDS: ASPIRIN EC 81 MG TABLET PO SCH (08:22)
[2020-07-27] MEDS: carvediloL 12.5 MG TABLET PO SCH ×2 (08:22→21:02)
[2020-07-27] MEDS: PANTOPRAZOLE 40 MG TABLET PO SCH (08:22)
[2020-07-27] MEDS: FUROSEMIDE 40 MG TABLET PO SCH (08:22)
[2020-07-27] MEDS: DOXYCYCLINE HYCLATE 100 MG CAPSULE PO SCH ×2 (08:22→21:02)
[2020-07-28 06:49] LABS: INR 1.2; PT Patient Result 12.8 SECS (9.8-11.9); Partial Thromboplastin Time 32.8 SECS (23.9-33.8)
[2020-07-28 06:50] LABS: Calcium 7.8 MG/DL (8.5-10.1)
[2020-07-28] MEDS ORDERED: HEPARIN 10,000 UNIT/10 ML VIAL ONE (10:16)
[2020-07-28] MEDS: INSULIN LISPRO 100 UNIT/ML SUBCUT SCH ×4 (13:20→21:02)
[2020-07-28] MEDS: SEVELAMER CARBONATE 800 MG TABLET PO SCH ×3 (13:21→17:30)
[2020-07-28] MEDS: lisinopriL 10 MG TABLET PO SCH (13:26)
[2020-07-28] MEDS: PANTOPRAZOLE 40 MG TABLET PO SCH (13:26)
[2020-07-28] MEDS: DOXYCYCLINE HYCLATE 100 MG CAPSULE PO SCH ×2 (13:26→20:59)
[2020-07-28] MEDS: carvediloL 12.5 MG TABLET PO SCH ×2 (13:27→20:59)
[2020-07-28] MEDS: FUROSEMIDE 40 MG TABLET PO SCH (13:27)
[2020-07-29 06:00] LABS: Basophils # 0.1 10*3/uL (0.0-0.2); Basophils % 1.2 % (0.0-0.8); Eosinophils # 0.2 10*3/uL (0.0-0.87); Eosinophils % 2.8 % (0.00-10.9); Hematocrit 23.4 VOL% (35.7-47.0); Hemoglobin 7.3 GM/DL (12.0-16.0); Immature Granulocytes % 0.7 %; Immature Granulocytes Absolute 0.05 #; Lymphocytes # 1.3 10*3/uL (1.4-4.0); Lymphocytes % 19.1 % (21.3-54.2); Mean Corpuscular HGB Conc 31.2 GM/DL (32-36); Mean Corpuscular Volume 94.4 FL (87-102); Mean Platelet Volume 10.4 FL (9.6-12.0); Monocytes % 12.6 % (1.7-12.7); Neutrophils % 63.6 % (38.7-73.9); Platelet Count 202 T/CUMM (130-400); Red Blood Count 2.48 MC/CUMM (3.8-5.5); Red Cell Distribution Width 16.2 % (9.3-17.3); White Blood Count 6.8 T/CUMM (4-12)
[2020-07-29 06:50] LABS: Calcium 7.9 MG/DL (8.5-10.1); Osmolality,Calculated 276.8 MOS/KG (273-304)
[2020-07-29] MEDS: INSULIN LISPRO 100 UNIT/ML SUBCUT SCH ×2 (09:12→11:39)
[2020-07-29] MEDS: DOXYCYCLINE HYCLATE 100 MG CAPSULE PO SCH (09:13)
[2020-07-29] MEDS: PANTOPRAZOLE 40 MG TABLET PO SCH (09:13)
[2020-07-29] MEDS: carvediloL 12.5 MG TABLET PO SCH (09:13)
[2020-07-29] MEDS: SEVELAMER CARBONATE 800 MG TABLET PO SCH ×2 (09:13→11:39)
[2020-07-29] MEDS: FUROSEMIDE 40 MG TABLET PO SCH (09:14)
[2020-07-29] MEDS: lisinopriL 10 MG TABLET PO SCH (11:51)
[2020-07-29 12:48] VITALS: BP 120/54
[2020-07-31] MEDS ORDERED: ceFAZolin 2,000 MG in PREMIX 1 EACH IV SCH (17:00)
== END 2020-07-29 16:06 | disposition home or self-care (01) | DRG 255 ==
LOC: N.CC 15:07 → SUATTDRO 15:07 → N.3E 07-16 13:01 → N.CC 07-20 13:43 → N.3E 07-23 20:33
PROVIDERS: ADMIT Internal Medicine; ATTEND Hospitalist

== ENCOUNTER 2021-02-12 18:32 | Observation (INO) ==
[2021-02-12 19:03] LABS: Basophils # 0.1 10*3/uL (0.0-0.2); Basophils % 0.5 % (0.0-0.8); Eosinophils # 0.1 10*3/uL (0.0-0.87); Eosinophils % 0.7 % (0.00-10.9); Hematocrit 31.2 VOL% (35.7-47.0); Hemoglobin 10.2 GM/DL (12.0-16.0); Immature Granulocytes % 0.7 %; Immature Granulocytes Absolute 0.09 #; Lymphocytes # 1.1 10*3/uL (1.4-4.0); Mean Corpuscular HGB Conc 32.7 GM/DL (32-36); Mean Corpuscular Volume 101.6 FL (87-102); Mean Platelet Volume 9.7 FL (9.6-12.0); Neutrophils % 82.1 % (38.7-73.9); Platelet Count 126 T/CUMM (130-400); Red Blood Count 3.07 MC/CUMM (3.8-5.5); Red Cell Distribution Width 14.9 % (9.3-17.3); White Blood Count 12.1 T/CUMM (4-12)
[2021-02-12 19:34] LABS: Alanine Aminotransferase 64 U/L (13-56); Alkaline Phosphatase 154 U/L (45-117); Aspartate Amino Transferase 118 U/L (0-37); Bilirubin,Total < 0.39 MG/DL (0.2-1.0); Blood Urea Nitrogen 24 MG/DL (7-18); Calcium 8.3 MG/DL (8.5-10.1); Carbon Dioxide 28 MMOL/L (21-32); Estimated Glom Filtration Rate 9 ML/MIN; Glucose 205 MG/DL (74-106); Osmolality,Calculated 282.8 MOS/KG (273-304); Potassium 3.7 MMOL/L (3.5-5.1); Sodium 137 MMOL/L (136-145); Total Protein 7.3 G/DL (6.4-8.2)
[2021-02-12] MEDS ORDERED: DEXTROSE 50% 25 GM/50 ML VIAL IV PRN ×2 (20:37)
[2021-02-12] MEDS ORDERED: GLUCAGON 1 MG VIAL IM PRN (20:37)
[2021-02-12] MEDS ORDERED: ACETAMINOPHEN 325 MG TABLET PO PRN (20:37)
[2021-02-12] MEDS ORDERED: ONDANSETRON 4 MG/2 ML VIAL IV PRN (20:37)
[2021-02-12] MEDS ORDERED: HEPARIN 5,000 UNIT/1 ML VIAL SUBCUT SCH (21:00)
[2021-02-12] MEDS: INSULIN REGULAR 100 UNIT/ML SUBCUT SCH (23:15)
[2021-02-13 05:29] LABS: Basophils # 0.1 10*3/uL (0.0-0.2); Basophils % 0.7 % (0.0-0.8); Eosinophils # 0.2 10*3/uL (0.0-0.87); Eosinophils % 2.5 % (0.00-10.9); Hematocrit 29.6 VOL% (35.7-47.0); Hemoglobin 9.6 GM/DL (12.0-16.0); Immature Granulocytes % 0.3 %; Immature Granulocytes Absolute 0.02 #; Lymphocytes # 1.3 10*3/uL (1.4-4.0); Mean Corpuscular HGB Conc 32.4 GM/DL (32-36); Mean Corpuscular Volume 104.2 FL (87-102); Neutrophils % 69.5 % (38.7-73.9); Platelet Count 124 T/CUMM (130-400); Red Blood Count 2.84 MC/CUMM (3.8-5.5); Red Cell Distribution Width 14.7 % (9.3-17.3); White Blood Count 7.1 T/CUMM (4-12)
[2021-02-13 06:00] LABS: Albumin 2.7 G/DL (3.4-5.0); Bilirubin,Total 0.5 MG/DL (0.2-1.0); Calcium 8.2 MG/DL (8.5-10.1); Osmolality,Calculated 287.4 MOS/KG (273-304); Potassium 3.9 MMOL/L (3.5-5.1); Total Protein 6.6 G/DL (6.4-8.2)
[2021-02-13] MEDS: INSULIN REGULAR 100 UNIT/ML SUBCUT SCH ×4 (09:06→22:01)
[2021-02-13] MEDS: carvediloL 12.5 MG TABLET PO SCH ×2 (09:36→21:49)
[2021-02-13] MEDS: lisinopriL 10 MG TABLET PO SCH (09:36)
[2021-02-13] MEDS: FUROSEMIDE 80 MG TABLET PO SCH (09:36)
[2021-02-13] MEDS: PANTOPRAZOLE 40 MG TABLET PO SCH (09:36)
[2021-02-13] MEDS: ASPIRIN EC 81 MG TABLET PO SCH (09:36)
[2021-02-13] MEDS: ENOXAPARIN 80 MG/0.8 ML SYRINGE SUBCUT SCH (09:37)
[2021-02-13] MEDS: SEVELAMER CARBONATE 800 MG TABLET PO SCH ×2 (12:19→18:56)
[2021-02-14 05:14] LABS: Basophils % 0.5 % (0.0-0.8); Eosinophils # 0.3 10*3/uL (0.0-0.87); Eosinophils % 5.1 % (0.00-10.9); Hematocrit 28.9 VOL% (35.7-47.0); Hemoglobin 9.2 GM/DL (12.0-16.0); Immature Granulocytes % 0.5 %; Immature Granulocytes Absolute 0.03 #; Lymphocytes # 1.1 10*3/uL (1.4-4.0); Lymphocytes % 19.6 % (21.3-54.2); Mean Corpuscular HGB Conc 31.8 GM/DL (32-36); Mean Corpuscular Volume 104.3 FL (87-102); Monocytes % 11.5 % (1.7-12.7); Neutrophils % 62.8 % (38.7-73.9); Platelet Count 140 T/CUMM (130-400); Red Blood Count 2.77 MC/CUMM (3.8-5.5); Red Cell Distribution Width 14.6 % (9.3-17.3); White Blood Count 5.5 T/CUMM (4-12)
[2021-02-14 05:47] LABS: Calcium 8.3 MG/DL (8.5-10.1); Osmolality,Calculated 286.5 MOS/KG (273-304); Potassium 3.9 MMOL/L (3.5-5.1); Risk Ratio 2.47; VLDL CHOLESTEROL 24.4 MG/DL
[2021-02-14] MEDS: SEVELAMER CARBONATE 800 MG TABLET PO SCH ×2 (07:57→13:02)
[2021-02-14] MEDS: ENOXAPARIN 80 MG/0.8 ML SYRINGE SUBCUT SCH (08:00)
[2021-02-14] MEDS: PANTOPRAZOLE 40 MG TABLET PO SCH (08:00)
[2021-02-14] MEDS: carvediloL 12.5 MG TABLET PO SCH (08:00)
[2021-02-14] MEDS: ASPIRIN EC 81 MG TABLET PO SCH (08:00)
[2021-02-14] MEDS: lisinopriL 10 MG TABLET PO SCH (08:00)
[2021-02-14] MEDS: FUROSEMIDE 80 MG TABLET PO SCH (08:00)
[2021-02-14] MEDS: INSULIN REGULAR 100 UNIT/ML SUBCUT SCH ×2 (08:43→13:05)
[2021-02-14] MEDS ORDERED: ATORVASTATIN 10 MG TABLET PO SCH (09:00)
[2021-02-14 16:05] VITALS: BP 141/55
[2021-02-14] MEDS ORDERED: ATORVASTATIN 40 MG TABLET PO SCH (21:00)
== END 2021-02-14 16:17 | disposition home or self-care (01) ==
LOC: EDUNIT# → EDBD → N.ED 18:32 → N.EDINP 18:32 → N.3E 22:58
PROVIDERS: ADMIT Emergency Medicine; ATTEND Emergency Medicine

== ENCOUNTER 2021-02-27 06:02 | Inpatient (IN) ==
[~2021-02-27 06:02] MED LIST: ASPIRIN 325 MG TABLET PO ONE; DIAZEPAM 5 MG TABLET PO ONE; MAGNESIUM SULF RIDER 2 GM/50 ML PREMIX IV PRN; POTASSIUM CHLORIDE RIDER 10 MEQ/100 ML PREMIX IV PRN; SODIUM CHLORIDE 0.9% 1,000 ML IV SCH; diphenhydrAMINE CAP 50 MG CAPSULE PO ONE
[2021-02-27] MEDS ORDERED: HEPARIN/NACL 0.9% 2 UNITS/ML 2,000 UNIT/1,000 ML BAG IV ONE ×2 (06:51→10:29)
[2021-02-27] MEDS ORDERED: LIDOCAINE 1% 20 ML VIAL ONE ×2 (06:51→10:29)
[2021-02-27] MEDS ORDERED: DIAZEPAM 5 MG TABLET ONE (07:50)
[2021-02-27] MEDS ORDERED: diphenhydrAMINE CAP 50 MG CAPSULE ONE (07:50)
[2021-02-27] MEDS ORDERED: ASPIRIN 325 MG TABLET ONE (07:50)
[2021-02-27] MEDS ORDERED: MIDAZOLAM 2 MG/2 ML VIAL ONE ×2 (10:46→10:53)
[2021-02-27] MEDS ORDERED: fentaNYL 100 MCG/2 ML VIAL ONE (10:46)
[2021-02-27] MEDS ORDERED: NALOXONE 0.4 MG/ML VIAL ONE (10:58)
[2021-02-27] MEDS ORDERED: hydrALAZINE 20 MG/1 ML VIAL ONE (11:14)
[2021-02-27] MEDS ORDERED: DOPamine 800 MG/250 ML PREMIX IV ONE (11:38)
[2021-02-27] MEDS ORDERED: ACETAMINOPHEN/CODEINE 300-30 MG TABLET PO PRN (11:43)
[2021-02-27] MEDS ORDERED: ACETAMINOPHEN 325 MG TABLET PO PRN (11:43)
[2021-02-27] MEDS: SEVELAMER CARBONATE 800 MG TABLET PO SCH ×2 (12:32→16:45)
[2021-02-27] MEDS: INSULIN REGULAR 100 UNIT/ML SUBCUT SCH ×2 (16:42→21:12)
[2021-02-27] MEDS ORDERED: INSULIN REGULAR 100 UNIT/ML SUBCUT SCH (21:00)
[2021-02-27] MEDS: carvediloL 12.5 MG TABLET PO SCH (21:12)
[2021-02-27] MEDS: ATORVASTATIN 40 MG TABLET PO SCH (21:13)
[2021-02-28 05:40] LABS: Basophils # 0.1 10*3/uL (0.0-0.2); Basophils % 0.7 % (0.0-0.8); Eosinophils # 0.2 10*3/uL (0.0-0.87); Eosinophils % 2.4 % (0.00-10.9); Hematocrit 32.5 VOL% (35.7-47.0); Hemoglobin 10.2 GM/DL (12.0-16.0); Immature Granulocytes % 0.4 %; Immature Granulocytes Absolute 0.03 #; Lymphocytes # 1.3 10*3/uL (1.4-4.0); Lymphocytes % 15.6 % (21.3-54.2); Mean Corpuscular HGB Conc 31.4 GM/DL (32-36); Mean Corpuscular Volume 102.2 FL (87-102); Mean Platelet Volume 9.9 FL (9.6-12.0); Monocytes % 8.4 % (1.7-12.7); Neutrophils % 72.5 % (38.7-73.9); Platelet Count 184 T/CUMM (130-400); Red Blood Count 3.18 MC/CUMM (3.8-5.5); Red Cell Distribution Width 13.4 % (9.3-17.3); White Blood Count 8.4 T/CUMM (4-12)
[2021-02-28 05:58] LABS: Calcium 8.9 MG/DL (8.5-10.1); Potassium 4.9 MMOL/L (3.5-5.1)
[2021-02-28 06:38] LABS: Hepatitis B Core IgM Quant 0.09 Index; Hepatitis B Surface Ag Quant < 0.10 Index; Hepatitis B Surface Ag Result Non-Reactive (NonReactive); Hepatitis C Virus Ab Quant 0.11 Index; Hepatitis C Virus Ab Result Non-Reactive (NonReactive)
[2021-02-28] MEDS: SEVELAMER CARBONATE 800 MG TABLET PO SCH ×3 (08:24→17:25)
[2021-02-28] MEDS: lisinopriL 10 MG TABLET PO SCH (08:25)
[2021-02-28] MEDS: ASPIRIN 325 MG TABLET PO SCH (08:25)
[2021-02-28] MEDS: carvediloL 12.5 MG TABLET PO SCH ×2 (08:25→20:46)
[2021-02-28] MEDS: INSULIN REGULAR 100 UNIT/ML SUBCUT SCH ×5 (08:35→20:46)
[2021-02-28] MEDS ORDERED: FUROSEMIDE 80 MG TABLET PO SCH (09:00)
[2021-02-28] MEDS: ATORVASTATIN 40 MG TABLET PO SCH (20:46)
[2021-02-28] MEDS ORDERED: INSULIN GLARGINE 100 UNIT/ML SUBCUT SCH (21:00)
[2021-03-01] MEDS: lisinopriL 10 MG TABLET PO SCH (08:13)
[2021-03-01] MEDS: SEVELAMER CARBONATE 800 MG TABLET PO SCH (08:14)
[2021-03-01] MEDS: ASPIRIN 325 MG TABLET PO SCH (08:14)
[2021-03-01] MEDS: carvediloL 12.5 MG TABLET PO SCH (08:14)
[2021-03-01 10:59] VITALS: BP 166/75
[2021-03-01] MEDS: INSULIN REGULAR 100 UNIT/ML SUBCUT SCH (11:02)
== END 2021-03-01 10:55 | disposition home or self-care, planned readmission (81) | DRG 286 ==
LOC: N.CL 06:02 → N.ICU 11:37
PROVIDERS: ADMIT Internal Medicine Cardiovascular Disease; ATTEND Internal Medicine Cardiovascular Disease
PROC: CLCCHCL (ICD-10-PCS; 2021-02-27 08:45)

== ENCOUNTER 2021-03-03 05:25 | Inpatient (IN) ==
[2021-03-03] MEDS ORDERED: GLUCAGON 1 MG VIAL IM PRN (07:26)
[2021-03-03] MEDS ORDERED: DEXTROSE 50% 25 GM/50 ML VIAL IV PRN (07:26)
[2021-03-03] MEDS ORDERED: NITROGLYCERIN SL 0.4 MG TABLET SL PRN (08:14)
[2021-03-03 08:25] LABS: Basophils # 0.1 10*3/uL (0.0-0.2); Basophils % 0.8 % (0.0-0.8); Eosinophils # 0.2 10*3/uL (0.0-0.87); Eosinophils % 3.1 % (0.00-10.9); Hematocrit 31.9 VOL% (35.7-47.0); Hemoglobin 10.6 GM/DL (12.0-16.0); Immature Granulocytes % 0.6 %; Immature Granulocytes Absolute 0.04 #; Lymphocytes # 1.3 10*3/uL (1.4-4.0); Lymphocytes % 20.9 % (21.3-54.2); Mean Corpuscular HGB Conc 33.2 GM/DL (32-36); Mean Corpuscular Volume 99.4 FL (87-102); Mean Platelet Volume 9.6 FL (9.6-12.0); Monocytes % 11.5 % (1.7-12.7); Neutrophils % 63.1 % (38.7-73.9); Platelet Count 168 T/CUMM (130-400); Red Blood Count 3.21 MC/CUMM (3.8-5.5); Red Cell Distribution Width 13.3 % (9.3-17.3); White Blood Count 6.4 T/CUMM (4-12)
[2021-03-03 08:57] LABS: Albumin 3.3 G/DL (3.4-5.0); Bilirubin,Total 0.4 MG/DL (0.2-1.0); Calcium 8.9 MG/DL (8.5-10.1); Osmolality,Calculated 274.2 MOS/KG (273-304); Potassium 4.6 MMOL/L (3.5-5.1); Total Protein 7.7 G/DL (6.4-8.2)
[2021-03-03] MEDS: HEPARIN 5,000 UNIT/1 ML VIAL SUBCUT SCH ×2 (09:15→20:47)
[2021-03-03] MEDS: lisinopriL 10 MG TABLET PO SCH (09:15)
[2021-03-03] MEDS: carvediloL 12.5 MG TABLET PO SCH ×2 (09:15→16:25)
[2021-03-03] MEDS: INSULIN LISPRO 100 UNIT/ML SUBCUT SCH ×3 (12:14→20:47)
[2021-03-03] MEDS: SEVELAMER CARBONATE 800 MG TABLET PO SCH ×2 (12:25→16:25)
[2021-03-03] MEDS: ATORVASTATIN 40 MG TABLET PO SCH (20:47)
[2021-03-03] MEDS ORDERED: INSULIN GLARGINE 100 UNIT/ML SUBCUT SCH (21:00)
[2021-03-04 05:05] LABS: Basophils # 0.1 10*3/uL (0.0-0.2); Basophils % 1.1 % (0.0-0.8); Eosinophils # 0.3 10*3/uL (0.0-0.87); Hematocrit 29.7 VOL% (35.7-47.0); Hemoglobin 9.6 GM/DL (12.0-16.0); Immature Granulocytes % 0.6 %; Immature Granulocytes Absolute 0.03 #; Lymphocytes # 1.8 10*3/uL (1.4-4.0); Lymphocytes % 34.6 % (21.3-54.2); Mean Corpuscular HGB Conc 32.3 GM/DL (32-36); Mean Corpuscular Volume 102.4 FL (87-102); Mean Platelet Volume 10.1 FL (9.6-12.0); Monocytes % 13.4 % (1.7-12.7); Neutrophils % 44.3 % (38.7-73.9); Platelet Count 166 T/CUMM (130-400); Red Cell Distribution Width 13.3 % (9.3-17.3); White Blood Count 5.3 T/CUMM (4-12)
[2021-03-04 05:53] LABS: Calcium 8.8 MG/DL (8.5-10.1); Osmolality,Calculated 277.1 MOS/KG (273-304); Potassium 5.3 MMOL/L (3.5-5.1)
[2021-03-04] MEDS ORDERED: SODIUM POLYSTYRENE SULFATE 15 GM/60 ML BOTTLE PO ONE (08:46)
[2021-03-04] MEDS: carvediloL 12.5 MG TABLET PO SCH ×2 (08:51→16:28)
[2021-03-04] MEDS: SEVELAMER CARBONATE 800 MG TABLET PO SCH ×3 (08:51→16:28)
[2021-03-04] MEDS: lisinopriL 10 MG TABLET PO SCH (08:51)
[2021-03-04] MEDS: HEPARIN 5,000 UNIT/1 ML VIAL SUBCUT SCH ×2 (08:52→20:42)
[2021-03-04] MEDS: INSULIN LISPRO 100 UNIT/ML SUBCUT SCH ×4 (08:52→21:47)
[2021-03-04] MEDS: ASPIRIN 325 MG TABLET PO SCH (09:55)
[2021-03-04] MEDS ORDERED: NITROGLYCERIN 2% OINT 1 INCH/GM PACK TOP ONE (10:38)
[2021-03-04] MEDS: NITROGLYCERIN 2% OINT 1 INCH/GM PACK TOP SCH ×3 (10:52→18:14)
[2021-03-04] MEDS: ATORVASTATIN 40 MG TABLET PO SCH (20:43)
[2021-03-05] MEDS: NITROGLYCERIN 2% OINT 1 INCH/GM PACK TOP SCH ×4 (00:16→17:15)
[2021-03-05 06:51] LABS: Basophils # 0.1 10*3/uL (0.0-0.2); Basophils % 0.9 % (0.0-0.8); Eosinophils # 0.3 10*3/uL (0.0-0.87); Eosinophils % 4.5 % (0.00-10.9); Hematocrit 28.1 VOL% (35.7-47.0); Immature Granulocytes % 0.5 %; Immature Granulocytes Absolute 0.03 #; Lymphocytes # 1.5 10*3/uL (1.4-4.0); Lymphocytes % 25.3 % (21.3-54.2); Mean Corpuscular Volume 101.4 FL (87-102); Mean Platelet Volume 9.7 FL (9.6-12.0); Monocytes % 11.8 % (1.7-12.7); Platelet Count 194 T/CUMM (130-400); Red Blood Count 2.77 MC/CUMM (3.8-5.5); Red Cell Distribution Width 13.3 % (9.3-17.3); White Blood Count 5.8 T/CUMM (4-12)
[2021-03-05 07:10] LABS: Calcium 8.6 MG/DL (8.5-10.1); Osmolality,Calculated 281.2 MOS/KG (273-304); Potassium 4.9 MMOL/L (3.5-5.1)
[2021-03-05] MEDS: INSULIN LISPRO 100 UNIT/ML SUBCUT SCH ×6 (07:17→21:53)
[2021-03-05] MEDS: ASPIRIN 325 MG TABLET PO SCH (09:06)
[2021-03-05] MEDS: lisinopriL 10 MG TABLET PO SCH (09:06)
[2021-03-05] MEDS: carvediloL 12.5 MG TABLET PO SCH ×2 (09:06→17:15)
[2021-03-05] MEDS: SEVELAMER CARBONATE 800 MG TABLET PO SCH ×3 (09:06→17:15)
[2021-03-05] MEDS: HEPARIN 5,000 UNIT/1 ML VIAL SUBCUT SCH ×2 (09:07→21:54)
[2021-03-05] MEDS: IRON PO SCH ×2 (14:14→21:00)
[2021-03-05] MEDS: FERRIC CITRATE 210 MG PO SCH ×2 (14:14→21:00)
[2021-03-05] MEDS: ASCORBIC ACID 500 MG TABLET PO SCH (21:52)
[2021-03-05] MEDS: ATORVASTATIN 40 MG TABLET PO SCH (21:52)
[2021-03-06] MEDS: NITROGLYCERIN 2% OINT 1 INCH/GM PACK TOP SCH ×4 (00:34→18:03)
[2021-03-06 04:07] LABS: Basophils # 0.1 10*3/uL (0.0-0.2); Basophils % 0.8 % (0.0-0.8); Eosinophils # 0.2 10*3/uL (0.0-0.87); Eosinophils % 3.7 % (0.00-10.9); Hematocrit 29.7 VOL% (35.7-47.0); Hemoglobin 9.3 GM/DL (12.0-16.0); Immature Granulocytes % 0.5 %; Immature Granulocytes Absolute 0.03 #; Lymphocytes # 1.6 10*3/uL (1.4-4.0); Lymphocytes % 24.5 % (21.3-54.2); Mean Corpuscular HGB Conc 31.3 GM/DL (32-36); Mean Corpuscular Volume 104.2 FL (87-102); Mean Platelet Volume 9.7 FL (9.6-12.0); Monocytes % 12.8 % (1.7-12.7); NRBC # 0.04 10*3/uL; Neutrophils % 57.7 % (38.7-73.9); Platelet Count 190 T/CUMM (130-400); Red Blood Count 2.85 MC/CUMM (3.8-5.5); Red Cell Distribution Width 13.3 % (9.3-17.3); White Blood Count 6.4 T/CUMM (4-12)
[2021-03-06 04:45] LABS: Calcium 8.5 MG/DL (8.5-10.1); Osmolality,Calculated 282.5 MOS/KG (273-304); Potassium 4.8 MMOL/L (3.5-5.1)
[2021-03-06] MEDS: SEVELAMER CARBONATE 800 MG TABLET PO SCH ×3 (08:23→18:02)
[2021-03-06] MEDS: carvediloL 12.5 MG TABLET PO SCH (08:24)
[2021-03-06] MEDS: lisinopriL 10 MG TABLET PO SCH (08:24)
[2021-03-06] MEDS: ASPIRIN 325 MG TABLET PO SCH (08:24)
[2021-03-06] MEDS: ASCORBIC ACID 500 MG TABLET PO SCH ×2 (08:25→20:46)
[2021-03-06] MEDS: INSULIN LISPRO 100 UNIT/ML SUBCUT SCH ×7 (08:27→21:51)
[2021-03-06] MEDS: IRON PO SCH ×3 (08:28→20:53)
[2021-03-06] MEDS: FERRIC CITRATE 210 MG PO SCH ×3 (08:28→20:53)
[2021-03-06] MEDS: HEPARIN 5,000 UNIT/1 ML VIAL SUBCUT SCH ×2 (08:29→20:48)
[2021-03-06] MEDS ORDERED: carvediloL 12.5 MG TABLET PO ONE (09:28)
[2021-03-06] MEDS: carvediloL 25 MG TABLET PO SCH (18:03)
[2021-03-06] MEDS: ATORVASTATIN 40 MG TABLET PO SCH (20:46)
[2021-03-07] MEDS: NITROGLYCERIN 2% OINT 1 INCH/GM PACK TOP SCH ×4 (00:25→17:58)
[2021-03-07 06:38] LABS: Basophils # 0.1 10*3/uL (0.0-0.2); Basophils % 0.9 % (0.0-0.8); Eosinophils # 0.3 10*3/uL (0.0-0.87); Eosinophils % 4.6 % (0.00-10.9); Hematocrit 29.5 VOL% (35.7-47.0); Hemoglobin 9.5 GM/DL (12.0-16.0); Immature Granulocytes % 0.5 %; Immature Granulocytes Absolute 0.03 #; Lymphocytes # 1.7 10*3/uL (1.4-4.0); Mean Corpuscular HGB Conc 32.2 GM/DL (32-36); Mean Corpuscular Volume 102.4 FL (87-102); Mean Platelet Volume 9.7 FL (9.6-12.0); Monocytes % 11.1 % (1.7-12.7); NRBC # 0.02 10*3/uL; Neutrophils % 52.9 % (38.7-73.9); Platelet Count 215 T/CUMM (130-400); Red Blood Count 2.88 MC/CUMM (3.8-5.5); Red Cell Distribution Width 13.6 % (9.3-17.3); White Blood Count 5.6 T/CUMM (4-12)
[2021-03-07 07:07] LABS: Calcium 8.7 MG/DL (8.5-10.1); Osmolality,Calculated 282.8 MOS/KG (273-304); Potassium 5.6 MMOL/L (3.5-5.1)
[2021-03-07 07:14] LABS: Alanine Aminotransferase 13 U/L (13-56); Albumin 3.1 G/DL (3.4-5.0); Alkaline Phosphatase 95 U/L (45-117); Aspartate Amino Transferase 15 U/L (0-37); Blood Urea Nitrogen 39 MG/DL (7-18); Calcium 8.7 MG/DL (8.5-10.1); Carbon Dioxide 26 MMOL/L (21-32); Estimated Glom Filtration Rate 6 ML/MIN; Glucose 89 MG/DL (74-106); Osmolality,Calculated 277.1 MOS/KG (273-304); Potassium 5.6 MMOL/L (3.5-5.1); Sodium 135 MMOL/L (136-145); Total Protein 7.1 G/DL (6.4-8.2)
[2021-03-07] MEDS: INSULIN LISPRO 100 UNIT/ML SUBCUT SCH ×7 (07:41→20:50)
[2021-03-07] MEDS: SODIUM CHLORIDE 0.9% 1,000 ML IV SCH (08:26)
[2021-03-07] MEDS: FERRIC CITRATE 210 MG PO SCH ×3 (08:40→21:21)
[2021-03-07] MEDS: SEVELAMER CARBONATE 800 MG TABLET PO SCH ×3 (08:40→16:27)
[2021-03-07] MEDS: IRON PO SCH ×3 (08:40→21:21)
[2021-03-07] MEDS ORDERED: CHLORHEXIDINE 4% SOLN 118 ML BOTTLE TOP SCH (09:00)
[2021-03-07] MEDS: ASPIRIN 325 MG TABLET PO SCH (12:11)
[2021-03-07] MEDS: carvediloL 25 MG TABLET PO SCH ×2 (12:11→16:27)
[2021-03-07] MEDS: lisinopriL 10 MG TABLET PO SCH (12:12)
[2021-03-07] MEDS: HEPARIN 5,000 UNIT/1 ML VIAL SUBCUT SCH ×2 (12:12→21:10)
[2021-03-07] MEDS: ASCORBIC ACID 500 MG TABLET PO SCH ×2 (12:12→21:07)
[2021-03-07] MEDS: CHLORHEXIDINE 0.12% ORAL RINSE 60 ML BOTTLE SWISH/SPIT SCH ×2 (12:12→21:11)
[2021-03-07 13:49] LABS: ABG Base Excess 3.8 MMOL/L (-2.5-2.5); ABG HCO3 27.7 MMOL/L (20-26); ABG Oxygen Saturation 90.9 % (95-100); ABG PCO2 44.2 MM HG (35-48); ABG PH 7.421 (7.35-7.45); ABG PO2 59.8 MM HG (80-95); ABG TCO2 26.2 MMOL/L (23-27)
[2021-03-07] MEDS: CHLORHEXIDINE 4% SOLN 118 ML BOTTLE TOP SCH ×2 (14:43→21:20)
[2021-03-07] MEDS: ATORVASTATIN 40 MG TABLET PO SCH (21:07)
[2021-03-08] MEDS: NITROGLYCERIN 2% OINT 1 INCH/GM PACK TOP SCH ×3 (00:05→12:09)
[2021-03-08] MEDS ORDERED: VANCOMYCIN 1,000 MG VIAL ONE (04:20)
[2021-03-08] MEDS ORDERED: PAPAVERINE 60 MG/2 ML VIAL ONE (04:20)
[2021-03-08] MEDS: CHLORHEXIDINE 4% SOLN 118 ML BOTTLE TOP SCH ×2 (04:30→09:00)
[2021-03-08] MEDS ORDERED: CEFUROXIME INJ 1,500 MG in SODIUM CHLORIDE 0.9% 100 ML IV ONE (05:00)
[2021-03-08] MEDS ORDERED: DIAZEPAM 5 MG TABLET PO ONE (05:39)
[2021-03-08] MEDS ORDERED: FAMOTIDINE 20 MG TABLET PO ONE (05:39)
[2021-03-08] MEDS ORDERED: SODIUM CHLORIDE 0.9% 2,000 ML IV ONE (06:01)
[2021-03-08] MEDS ORDERED: HEPARIN/NACL 0.9% 2 UNITS/ML 1,000 UNIT/500 ML BAG IV ONE (06:01)
[2021-03-08] MEDS ORDERED: MIDAZOLAM 10 MG/2 ML VIAL ONE ×4 (06:02→06:03)
[2021-03-08] MEDS ORDERED: PHENYLEPHRINE DRIP 20 MG/250 ML PREMIX IV ONE (06:02)
[2021-03-08] MEDS ORDERED: NITROGLYCERIN DRIP 50 MG/250 ML BOTTLE IV ONE ×2 (06:02→13:21)
[2021-03-08] MEDS ORDERED: fentaNYL 250 MCG/5 ML VIAL ONE ×3 (06:05)
[2021-03-08] MEDS ORDERED: SUFentanil 250 MCG/5 ML AMP ONE ×4 (06:09→06:10)
[2021-03-08] MEDS: INSULIN LISPRO 100 UNIT/ML SUBCUT SCH ×3 (07:31→12:08)
[2021-03-08 08:09] LABS: ABG Base Excess 1.8 MMOL/L (-2.5-2.5); ABG HCO3 26.9 MMOL/L (20-26); ABG Oxygen Saturation 99.2 % (95-100); ABG PCO2 44.3 MM HG (35-48); ABG PH 7.401 (7.35-7.45); ABG PO2 322.7 MM HG (80-95); ABG TCO2 28.2 MMOL/L (23-27); Glucose Heart Surgery 133 MG/DL (74-106); Hemoglobin Heart Surgery 8.9 G/DL (12.0-16.0); Ionized Calcium Arterial 1.06 MMOL/L (1.21-1.46); PCO2 Patient Temp Arterial 44.3 MMHG; PH Patient Temp Arterial 7.401; PO2 Patient Temp Arterial 322.7 MM HG; Patient Temperature 37 CELCIUS; Potassium Heart/CVR 4.7 MMOL/L (3.5-5.1); Sodium Heart/CVR 134 MMOL/L (135-145)
[2021-03-08] MEDS ORDERED: PHENYLEPHRINE 1 MG/10 ML SYRINGE IV ONE (08:18)
[2021-03-08] MEDS: FERRIC CITRATE 210 MG PO SCH (09:00)
[2021-03-08] MEDS: SEVELAMER CARBONATE 800 MG TABLET PO SCH ×2 (09:00→12:09)
[2021-03-08] MEDS: CHLORHEXIDINE 0.12% ORAL RINSE 60 ML BOTTLE SWISH/SPIT SCH ×2 (09:00→20:20)
[2021-03-08] MEDS: SODIUM CHLORIDE 0.9% 1,000 ML IV SCH (09:00)
[2021-03-08] MEDS: IRON PO SCH (09:00)
[2021-03-08] MEDS: HEPARIN 5,000 UNIT/1 ML VIAL SUBCUT SCH (09:00)
[2021-03-08] MEDS: carvediloL 25 MG TABLET PO SCH (09:00)
[2021-03-08] MEDS: ASPIRIN 325 MG TABLET PO SCH (09:00)
[2021-03-08] MEDS: ASCORBIC ACID 500 MG TABLET PO SCH (09:01)
[2021-03-08] MEDS: lisinopriL 10 MG TABLET PO SCH (09:01)
[2021-03-08] MEDS ORDERED: HEPARIN 10,000 UNIT/10 ML VIAL ONE ×2 (09:55→12:16)
[2021-03-08] MEDS ORDERED: ETOMIDATE 40 MG/20 ML VIAL IV ONE (09:58)
[2021-03-08] MEDS ORDERED: AMINOCAPROIC ACID 5,000 MG/20 ML VIAL ONE (09:58)
[2021-03-08] MEDS ORDERED: LIDOCAINE 2% 5 ML VIAL ONE ×2 (09:58→12:16)
[2021-03-08] MEDS ORDERED: SODIUM CHLORIDE 0.9% 250 ML IV ONE (09:58)
[2021-03-08 10:56] LABS: Hematocrit Heart Surgery 26.1 PERCENT (37-47); Hemoglobin Heart Surgery 8.4 G/DL (12.0-16.0); PCO2 Patient Temp Venous 32.8 MM HG; PH Patient Temp Venous 7.438; PO2 Patient Temp Venous 39.5 MM HG; Potassium Heart/CVR 5.9 MMOL/L (3.5-5.1); VBG Base Excess -1.4 MEQ/L (0-4); VBG Oxygen Saturation 83.8 %; VBG PCO2 37.9 MMHG (41-51); VBG PH 7.394; VBG PO2 48.5 MMHG (17-40); VBG Total CO2 21.6 MMOL/L
[2021-03-08 11:27] LABS: Hematocrit Heart Surgery 25.9 PERCENT (37-47); Hemoglobin Heart Surgery 8.3 G/DL (12.0-16.0); PCO2 Patient Temp Venous 30.2 MM HG; PH Patient Temp Venous 7.391; PO2 Patient Temp Venous 43.6 MM HG; Potassium Heart/CVR 4.8 MMOL/L (3.5-5.1); VBG Base Excess -5.8 MEQ/L (0-4); VBG HCO3 19.4 MEQ/L (24-28); VBG Oxygen Saturation 83.3 %; VBG PCO2 33.3 MMHG (41-51); VBG PH 7.362; VBG Total CO2 17.7 MMOL/L
[2021-03-08] MEDS ORDERED: VECURONIUM 10 MG VIAL IV ONE (11:35)
[2021-03-08] MEDS ORDERED: ALBUMIN 25% 25 GM/100 ML VIAL IV ONE (12:15)
[2021-03-08] MEDS ORDERED: MAGNESIUM SULFATE 5 GM/10 ML VIAL IV ONE (12:16)
[2021-03-08] MEDS ORDERED: MANNITOL 100 GM/500 ML BAG IV ONE (12:16)
[2021-03-08] MEDS ORDERED: ALBUMIN 5% 12.5 GM/250 ML VIAL IV ONE (12:16)
[2021-03-08] MEDS ORDERED: FUROSEMIDE 20 MG/2 ML VIAL ONE (12:16)
[2021-03-08] MEDS ORDERED: methylPREDNISolone SOD SUC 1,000 MG/8 ML VIAL ONE (12:16)
[2021-03-08] MEDS ORDERED: PROTAMINE SULFATE 250 MG/25 ML VIAL IV ONE (12:16)
[2021-03-08] MEDS ORDERED: DEXTROSE 5% KCL 20 MEQ 20 MEQ/1,000 ML BAG IV ONE (12:16)
[2021-03-08] MEDS ORDERED: SODIUM BICARBONATE 50 MEQ/50 ML VIAL IV ONE (12:17)
[2021-03-08 12:25] LABS: ABG Base Excess -1.1 MMOL/L (-2.5-2.5); ABG HCO3 23.5 MMOL/L (20-26); ABG PCO2 34.6 MM HG (35-48); ABG PH 7.428 (7.35-7.45); ABG TCO2 21.3 MMOL/L (23-27); Glucose Heart Surgery 214 MG/DL (74-106); Hematocrit Heart Surgery 24.3 PERCENT (37-47); Hemoglobin Heart Surgery 7.8 G/DL (12.0-16.0); Ionized Calcium Arterial 1.06 MMOL/L (1.21-1.46); PCO2 Patient Temp Arterial 34.6 MMHG; PH Patient Temp Arterial 7.428; Patient Temperature 37 CELCIUS; Potassium Heart/CVR 4.7 MMOL/L (3.5-5.1); Sodium Heart/CVR 138 MMOL/L (135-145)
[2021-03-08] MEDS ORDERED: DOPamine 800 MG/250 ML PREMIX IV ONE (12:47)
[2021-03-08] MEDS ORDERED: DOBUTamine 500 MG/250 ML PREMIX IV ONE (12:48)
[2021-03-08] MEDS ORDERED: CHLORHEXIDINE 4% SOLN 118 ML BOTTLE TOP PRN (12:51)
[2021-03-08] MEDS ORDERED: CALCIUM CHLORIDE 1,000 MG/10 ML SYRINGE IV PRN (12:51)
[2021-03-08] MEDS ORDERED: POTASSIUM CHLORIDE RIDER 20 MEQ/100 ML PREMIX IV PRN (12:51)
[2021-03-08] MEDS ORDERED: POTASSIUM CHLORIDE RIDER 10 MEQ/100 ML PREMIX IV PRN (12:51)
[2021-03-08] MEDS ORDERED: ONDANSETRON 4 MG/2 ML VIAL IV PRN (12:51)
[2021-03-08] MEDS ORDERED: INSULIN REGULAR 100 UNIT/ML IV ONE (12:51)
[2021-03-08] MEDS ORDERED: MAGNESIUM SULF RIDER 4 GM/100 ML PREMIX IV PRN (12:51)
[2021-03-08] MEDS ORDERED: MORPHINE 10 MG/1 ML VIAL IV PRN (12:51)
[2021-03-08] MEDS ORDERED: ACETAMINOPHEN 650 MG SUPP RECTAL PRN (12:51)
[2021-03-08] MEDS ORDERED: MAGNESIUM SULF RIDER 2 GM/50 ML PREMIX IV PRN (12:51)
[2021-03-08] MEDS ORDERED: VECURONIUM 10 MG VIAL IV PRN ×2 (12:51)
[2021-03-08] MEDS ORDERED: ALBUMIN 5% 12.5 GM/250 ML VIAL IV PRN (12:51)
[2021-03-08] MEDS ORDERED: DEXTROSE 50% 25 GM/50 ML VIAL IV PRN ×2 (12:51)
[2021-03-08] MEDS ORDERED: MIDAZOLAM 10 MG/2 ML VIAL IV PRN (12:51)
[2021-03-08] MEDS ORDERED: INSULIN REGULAR 100 UNIT/ML IV PRN (12:51)
[2021-03-08] MEDS ORDERED: PHENYLEPHRINE DRIP 40 MG/250 ML PREMIX IV PRN (12:51)
[2021-03-08] MEDS ORDERED: LACTATED RINGERS 250 ML IV PRN (12:51)
[2021-03-08] MEDS ORDERED: NITROPRUSSIDE 100 MG in DEXTROSE 5% 250 ML IV PRN (12:51)
[2021-03-08] MEDS ORDERED: MIDAZOLAM 2 MG/2 ML VIAL IV PRN (12:51)
[2021-03-08] MEDS ORDERED: INSULIN REGULAR DRIP 100 ML IV SCH (13:00)
[2021-03-08] MEDS ORDERED: SODIUM CHLORIDE 0.45% 1,000 ML IV SCH (13:00)
[2021-03-08 13:34] LABS: ABG Base Excess -1.7 MMOL/L (-2.5-2.5); ABG Oxygen Saturation 97.8 % (95-100); ABG PCO2 31.2 MM HG (35-48); ABG PH 7.451 (7.35-7.45); ABG PO2 91.1 MM HG (80-95); Glucose Heart Surgery 215 MG/DL (74-106); Hematocrit Heart Surgery 27.1 PERCENT (37-47); Hemoglobin Heart Surgery 8.7 G/DL (12.0-16.0); Potassium Heart/CVR 4.5 MMOL/L (3.5-5.1)
[2021-03-08] MEDS ORDERED: DEXMEDETOMIDINE 200 MCG in SODIUM CHLORIDE 0.9% 48 ML IV PRN (13:34)
[2021-03-08 13:42] LABS: Basophils % 0.3 % (0.0-0.8); Eosinophils # 0.1 10*3/uL (0.0-0.87); Hematocrit 26.2 VOL% (35.7-47.0); Hemoglobin 8.6 GM/DL (12.0-16.0); Immature Granulocytes % 0.7 %; Immature Granulocytes Absolute 0.06 #; Lymphocytes # 0.6 10*3/uL (1.4-4.0); Lymphocytes % 6.5 % (21.3-54.2); Mean Corpuscular HGB Conc 32.8 GM/DL (32-36); Mean Platelet Volume 9.8 FL (9.6-12.0); NRBC # 0.08 10*3/uL; Neutrophils % 85.5 % (38.7-73.9); Platelet Count 90 T/CUMM (130-400); White Blood Count 8.8 T/CUMM (4-12)
[2021-03-08] MEDS ORDERED: SEVOFLURANE 1 UNIT/15 MINUTE INH ONE (13:44)
[2021-03-08] MEDS ORDERED: NITROGLYCERIN DRIP 50 MG/250 ML BOTTLE IV PRN (13:50)
[2021-03-08 13:51] LABS: INR 1.1; PT Patient Result 12.3 SECS (10.5-12.0); Partial Thromboplastin Time 27.4 SECS (23.9-33.8)
[2021-03-08] MEDS: MORPHINE 4 MG/1 ML VIAL IV PRN (13:51)
[2021-03-08] MEDS ORDERED: DOBUTamine 500 MG/250 ML PREMIX IV SCH (14:00)
[2021-03-08 14:02] LABS: CKMB % 4.6 %
[2021-03-08 14:07] LABS: High Sensitive Troponin I* 4811.4 ng/L (0-54)
[2021-03-08 14:08] LABS: Albumin 2.8 G/DL (3.4-5.0); Bilirubin,Total 0.6 MG/DL (0.2-1.0); Calcium 7.6 MG/DL (8.5-10.1); Osmolality,Calculated 288.4 MOS/KG (273-304); Potassium 4.6 MMOL/L (3.5-5.1); Total Protein 5.6 G/DL (6.4-8.2)
[2021-03-08] MEDS: SODIUM CHLORIDE 0.45% 1,000 ML IV SCH (15:12)
[2021-03-08 15:17] LABS: Platelet Estimate Decreased
[2021-03-08 15:18] LABS: Hypochromasia Slight; Polychromasia Few
[2021-03-08 16:05] LABS: ABG Base Excess -3.7 MMOL/L (-2.5-2.5); ABG HCO3 21.3 MMOL/L (20-26); ABG Oxygen Saturation 97.8 % (95-100); ABG PH 7.343 (7.35-7.45); ABG TCO2 19.7 MMOL/L (23-27); Glucose Heart Surgery 231 MG/DL (74-106); Hematocrit Heart Surgery 32.8 PERCENT (37-47); Hemoglobin Heart Surgery 10.6 G/DL (12.0-16.0)
[2021-03-08 20:16] LABS: ABG Base Excess -3.9 MMOL/L (-2.5-2.5); ABG HCO3 21.8 MMOL/L (20-26); ABG PH 7.333 (7.35-7.45); ABG PO2 91.2 MM HG (80-95); ABG TCO2 23.1 MMOL/L (23-27); Glucose Heart Surgery 137 MG/DL (74-106); Hemoglobin Heart Surgery 11.3 G/DL (12.0-16.0); Potassium Heart/CVR 4.2 MMOL/L (3.5-5.1)
[2021-03-08] MEDS: CEFUROXIME INJ 1,500 MG in SODIUM CHLORIDE 0.9% 100 ML IV SCH (20:20)
[2021-03-08 20:30] LABS: CKMB % 3.7 %; High Sensitive Troponin I* 7743.8 ng/L (0-54)
[2021-03-08 22:22] LABS: ABG Base Excess -4.6 MMOL/L (-2.5-2.5); ABG HCO3 20.6 MMOL/L (20-26); ABG Oxygen Saturation 96.1 % (95-100); ABG PH 7.315 (7.35-7.45); ABG PO2 88.2 MM HG (80-95); ABG TCO2 19.4 MMOL/L (23-27); Glucose Heart Surgery 123 MG/DL (74-106); Hematocrit Heart Surgery 34.4 PERCENT (37-47); Hemoglobin Heart Surgery 11.2 G/DL (12.0-16.0); Potassium Heart/CVR 4.4 MMOL/L (3.5-5.1)
[2021-03-09 04:12] LABS: ABG Base Excess -6.2 MMOL/L (-2.5-2.5); ABG HCO3 19.3 MMOL/L (20-26); ABG Oxygen Saturation 96.8 % (95-100); ABG PCO2 37.8 MM HG (35-48); ABG PH 7.325 (7.35-7.45); ABG PO2 98.1 MM HG (80-95); ABG TCO2 20.4 MMOL/L (23-27); Glucose Heart Surgery 121 MG/DL (74-106); Hemoglobin Heart Surgery 10.8 G/DL (12.0-16.0); Potassium Heart/CVR 4.9 MMOL/L (3.5-5.1)
[2021-03-09 04:18] LABS: Basophils % 0.1 % (0.0-0.8); Hematocrit 32.3 VOL% (35.7-47.0); Hemoglobin 10.3 GM/DL (12.0-16.0); Immature Granulocytes % 0.7 %; Immature Granulocytes Absolute 0.09 #; Lymphocytes # 0.7 10*3/uL (1.4-4.0); Mean Corpuscular HGB Conc 31.9 GM/DL (32-36); Mean Corpuscular Volume 98.5 FL (87-102); Mean Platelet Volume 9.9 FL (9.6-12.0); Monocytes % 5.4 % (1.7-12.7); NRBC # 0.02 10*3/uL; Neutrophils % 87.8 % (38.7-73.9); Platelet Count 104 T/CUMM (130-400); Red Cell Distribution Width 16.7 % (9.3-17.3)
[2021-03-09 04:19] LABS: Red Blood Count 3.28 MC/CUMM (3.8-5.5); White Blood Count 12.3 T/CUMM (4-12)
[2021-03-09 04:40] LABS: Platelet Estimate Normal; Polychromasia Few
[2021-03-09 04:44] LABS: Albumin 3.2 G/DL (3.4-5.0); Bilirubin,Direct 0.1 MG/DL (0.0-0.20); Bilirubin,Total 0.5 MG/DL (0.2-1.0); Calcium 7.9 MG/DL (8.5-10.1); Osmolality,Calculated 287.4 MOS/KG (273-304); Potassium 4.9 MMOL/L (3.5-5.1); Total Protein 6.3 G/DL (6.4-8.2)
[2021-03-09 04:51] LABS: CKMB % 4.7 %
[2021-03-09] MEDS: MORPHINE 4 MG/1 ML VIAL IV PRN ×2 (05:44→20:11)
[2021-03-09] MEDS: INSULIN REGULAR 100 UNIT/ML SUBCUT SCH ×5 (08:24→23:50)
[2021-03-09] MEDS: CEFUROXIME INJ 1,500 MG in SODIUM CHLORIDE 0.9% 100 ML IV SCH ×2 (09:58→20:07)
[2021-03-09] MEDS: CHLORHEXIDINE 0.12% ORAL RINSE 60 ML BOTTLE SWISH/SPIT SCH ×2 (09:58→22:04)
[2021-03-09] MEDS: SODIUM CHLORIDE 0.45% 1,000 ML IV SCH (12:47)
[2021-03-09 13:13] LABS: ABG Base Excess 0.5 MMOL/L (-2.5-2.5); ABG HCO3 24.9 MMOL/L (20-26); ABG Oxygen Saturation 99.4 % (95-100); ABG PCO2 39.4 MM HG (35-48); ABG PH 7.411 (7.35-7.45); ABG TCO2 22.5 MMOL/L (23-27); Glucose Heart Surgery 116 MG/DL (74-106); Hematocrit Heart Surgery 33.2 PERCENT (37-47); Hemoglobin Heart Surgery 10.8 G/DL (12.0-16.0); Potassium Heart/CVR 3.7 MMOL/L (3.5-5.1)
[2021-03-09] MEDS ORDERED: KETOROLAC 30 MG/1 ML VIAL IV ONE (13:34)
[2021-03-09 13:36] LABS: CKMB % 4.7 %
[2021-03-09 13:42] LABS: High Sensitive Troponin I* 18479.2 ng/L (0-54)
[2021-03-09 15:06] LABS: ABG Base Excess -0.4 MMOL/L (-2.5-2.5); ABG HCO3 22.3 MMOL/L (20-26); ABG Oxygen Saturation 98.2 % (95-100); ABG PCO2 30.1 MM HG (35-48); ABG PH 7.488 (7.35-7.45); ABG PO2 128.8 MM HG (80-95); ABG TCO2 23.2 MMOL/L (23-27); Glucose Heart Surgery 123 MG/DL (74-106); Hemoglobin Heart Surgery 10.7 G/DL (12.0-16.0); Potassium Heart/CVR 3.8 MMOL/L (3.5-5.1)
[2021-03-09 19:06] LABS: High Sensitive Troponin I* 15555.2 ng/L (0-54)
[2021-03-10 04:00] LABS: ABG Base Excess -0.9 MMOL/L (-2.5-2.5); ABG HCO3 25.2 MMOL/L (20-26); ABG PCO2 48.7 MM HG (35-48); ABG PH 7.332 (7.35-7.45); ABG PO2 128.8 MM HG (80-95); ABG TCO2 26.7 MMOL/L (23-27)
[2021-03-10] MEDS: INSULIN REGULAR 100 UNIT/ML SUBCUT SCH ×5 (04:15→20:00)
[2021-03-10 04:30] LABS: Basophils % 0.1 % (0.0-0.8); Hematocrit 29.9 VOL% (35.7-47.0); Hemoglobin 9.2 GM/DL (12.0-16.0); Immature Granulocytes % 0.8 %; Immature Granulocytes Absolute 0.07 #; Lymphocytes # 0.8 10*3/uL (1.4-4.0); Lymphocytes % 8.5 % (21.3-54.2); Mean Corpuscular HGB Conc 30.8 GM/DL (32-36); Mean Corpuscular Volume 102.4 FL (87-102); Mean Platelet Volume 10.4 FL (9.6-12.0); Monocytes % 10.1 % (1.7-12.7); NRBC # 0.02 10*3/uL; Neutrophils % 80.5 % (38.7-73.9); Platelet Count 100 T/CUMM (130-400); Red Blood Count 2.92 MC/CUMM (3.8-5.5); Red Cell Distribution Width 16.7 % (9.3-17.3); White Blood Count 9.3 T/CUMM (4-12)
[2021-03-10 05:09] LABS: CKMB % 3.7 %; High Sensitive Troponin I* 17645.5 ng/L (0-54)
[2021-03-10 05:13] LABS: Alanine Aminotransferase 18 U/L (13-56); Albumin 2.7 G/DL (3.4-5.0); Alkaline Phosphatase 51 U/L (45-117); Aspartate Amino Transferase 61 U/L (0-37); Bilirubin,Direct < 0.100 MG/DL (0.0-0.20); Blood Urea Nitrogen 26 MG/DL (7-18); Calcium 7.9 MG/DL (8.5-10.1); Carbon Dioxide 25 MMOL/L (21-32); Estimated Glom Filtration Rate 13 ML/MIN; Glucose 123 MG/DL (74-106); Osmolality,Calculated 284.4 MOS/KG (273-304); Potassium 4.7 MMOL/L (3.5-5.1); Sodium 140 MMOL/L (136-145); Total Protein 5.6 G/DL (6.4-8.2)
[2021-03-10 05:26] LABS: Calcium 7.8 MG/DL (8.5-10.1); Osmolality,Calculated 284.4 MOS/KG (273-304); Potassium 4.7 MMOL/L (3.5-5.1)
[2021-03-10] MEDS ORDERED: HEPARIN/NACL 0.9% 2 UNITS/ML 1,000 UNIT/500 ML BAG IV ONE (07:04)
[2021-03-10] MEDS: CHLORHEXIDINE 0.12% ORAL RINSE 60 ML BOTTLE SWISH/SPIT SCH ×2 (09:16→20:00)
[2021-03-10] MEDS: SODIUM CHLORIDE 0.45% 1,000 ML IV SCH (12:41)
[2021-03-10] MEDS: carvediloL 6.25 MG TABLET PO SCH (18:14)
[2021-03-11] MEDS: INSULIN REGULAR 100 UNIT/ML SUBCUT SCH ×8 (00:07→23:47)
[2021-03-11] MEDS: SODIUM CHLORIDE 0.45% 1,000 ML IV SCH (00:11)
[2021-03-11 03:59] LABS: Basophils % 0.4 % (0.0-0.8); Eosinophils # 0.2 10*3/uL (0.0-0.87); Eosinophils % 2.5 % (0.00-10.9); Hematocrit 28.3 VOL% (35.7-47.0); Hemoglobin 8.7 GM/DL (12.0-16.0); Immature Granulocytes % 0.6 %; Immature Granulocytes Absolute 0.05 #; Mean Corpuscular HGB Conc 30.7 GM/DL (32-36); Mean Corpuscular Volume 102.5 FL (87-102); Mean Platelet Volume 9.8 FL (9.6-12.0); Monocytes % 11.3 % (1.7-12.7); NRBC # 0.03 10*3/uL; Neutrophils % 73.2 % (38.7-73.9); Platelet Count 94 T/CUMM (130-400); Red Blood Count 2.76 MC/CUMM (3.8-5.5); Red Cell Distribution Width 16.4 % (9.3-17.3)
[2021-03-11 04:10] LABS: Calcium 7.1 MG/DL (8.5-10.1); Osmolality,Calculated 288.5 MOS/KG (273-304); Potassium 4.6 MMOL/L (3.5-5.1)
[2021-03-11 04:14] LABS: Alanine Aminotransferase 15 U/L (13-56); Albumin 2.4 G/DL (3.4-5.0); Alkaline Phosphatase 46 U/L (45-117); Aspartate Amino Transferase 32 U/L (0-37); Bilirubin,Direct < 0.100 MG/DL (0.0-0.20); Bilirubin,Total < 0.39 MG/DL (0.2-1.0); Blood Urea Nitrogen 44 MG/DL (7-18); Calcium 7.3 MG/DL (8.5-10.1); Carbon Dioxide 23 MMOL/L (21-32); Estimated Glom Filtration Rate 9 ML/MIN; Glucose 107 MG/DL (74-106); Osmolality,Calculated 289.4 MOS/KG (273-304); Potassium 4.6 MMOL/L (3.5-5.1); Sodium 140 MMOL/L (136-145); Total Protein 5.6 G/DL (6.4-8.2)
[2021-03-11 04:19] LABS: Hypochromasia 1+; Platelet Estimate Normal; Polychromasia Few
[2021-03-11] MEDS: carvediloL 6.25 MG TABLET PO SCH ×2 (09:22→16:53)
[2021-03-11] MEDS: CHLORHEXIDINE 0.12% ORAL RINSE 60 ML BOTTLE SWISH/SPIT SCH ×2 (09:22→20:40)
[2021-03-11] MEDS: ASPIRIN CHEW 81 MG TABLET PO SCH (09:22)
[2021-03-11] MEDS: ATORVASTATIN 40 MG TABLET PO SCH (20:40)
[2021-03-12 04:22] LABS: Basophils % 0.1 % (0.0-0.8); Eosinophils % 0.1 % (0.00-10.9); Hematocrit 30.4 VOL% (35.7-47.0); Hemoglobin 9.3 GM/DL (12.0-16.0); Immature Granulocytes % 0.3 %; Immature Granulocytes Absolute 0.02 #; Lymphocytes # 0.4 10*3/uL (1.4-4.0); Lymphocytes % 5.6 % (21.3-54.2); Mean Corpuscular HGB Conc 30.6 GM/DL (32-36); Mean Corpuscular Volume 102.7 FL (87-102); Mean Platelet Volume 10.1 FL (9.6-12.0); Monocytes % 5.7 % (1.7-12.7); NRBC # 0.02 10*3/uL; Neutrophils % 88.2 % (38.7-73.9); Platelet Count 107 T/CUMM (130-400); Red Blood Count 2.96 MC/CUMM (3.8-5.5); Red Cell Distribution Width 15.9 % (9.3-17.3); White Blood Count 7.4 T/CUMM (4-12)
[2021-03-12] MEDS: INSULIN REGULAR 100 UNIT/ML SUBCUT SCH ×5 (04:34→22:38)
[2021-03-12 04:50] LABS: Calcium 7.4 MG/DL (8.5-10.1); Osmolality,Calculated 290.1 MOS/KG (273-304); Potassium 5.4 MMOL/L (3.5-5.1)
[2021-03-12] MEDS: ASPIRIN CHEW 81 MG TABLET PO SCH (08:16)
[2021-03-12] MEDS: carvediloL 6.25 MG TABLET PO SCH ×2 (08:16→16:44)
[2021-03-12] MEDS: CHLORHEXIDINE 0.12% ORAL RINSE 60 ML BOTTLE SWISH/SPIT SCH ×3 (08:17→22:30)
[2021-03-12] MEDS ORDERED: SODIUM CHLOR 0.45% KCL 20 MEQ 20 MEQ/1,000 ML BAG IV SCH (12:03)
[2021-03-12] MEDS ORDERED: DEXTROSE 50% 25 GM/50 ML VIAL IV PRN ×2 (12:03)
[2021-03-12] MEDS ORDERED: MAGNESIUM SULF RIDER 2 GM/50 ML PREMIX IV PRN (12:03)
[2021-03-12] MEDS ORDERED: POTASSIUM CHLORIDE 20 MEQ TABLET PO PRN (12:03)
[2021-03-12] MEDS ORDERED: ALUMINUM/MAGNES/SIMETH MAX STR 30 ML UDCUP PO PRN (12:03)
[2021-03-12] MEDS ORDERED: MAGNESIUM SULF RIDER 4 GM/100 ML PREMIX IV PRN (12:03)
[2021-03-12] MEDS ORDERED: ZALEPLON 5 MG CAPSULE PO PRN (12:03)
[2021-03-12] MEDS ORDERED: oxyCODONE/ACETAMINOPHEN 5-325 MG TABLET PO PRN (12:03)
[2021-03-12] MEDS ORDERED: GLUCAGON 1 MG VIAL IM PRN ×2 (12:03)
[2021-03-12] MEDS ORDERED: MAGNESIUM HYDROXIDE SUSP 30 ML UDCUP PO PRN (12:03)
[2021-03-12] MEDS: DOCUSATE SODIUM 100 MG CAPSULE PO SCH (12:19)
[2021-03-12] MEDS: FERROUS SULFATE 325 MG TABLET PO SCH (12:19)
[2021-03-12] MEDS: PANTOPRAZOLE 40 MG TABLET PO SCH (12:19)
[2021-03-12 14:38] LABS: Calcium 7.6 MG/DL (8.5-10.1); Potassium 3.9 MMOL/L (3.5-5.1)
[2021-03-12] MEDS: ATORVASTATIN 40 MG TABLET PO SCH (22:24)
[2021-03-13] MEDS: ONDANSETRON 4 MG/2 ML VIAL IV PRN (02:09)
[2021-03-13] MEDS: ACETAMINOPHEN 325 MG TABLET PO PRN (02:16)
[2021-03-13 06:25] LABS: Basophils % 0.1 % (0.0-0.8); Eosinophils # 0.1 10*3/uL (0.0-0.87); Eosinophils % 0.7 % (0.00-10.9); Hemoglobin 9.7 GM/DL (12.0-16.0); Immature Granulocytes % 0.7 %; Immature Granulocytes Absolute 0.05 #; Lymphocytes # 0.5 10*3/uL (1.4-4.0); Lymphocytes % 7.8 % (21.3-54.2); Mean Corpuscular HGB Conc 31.3 GM/DL (32-36); Mean Corpuscular Volume 100.6 FL (87-102); Monocytes % 7.8 % (1.7-12.7); Neutrophils % 82.9 % (38.7-73.9); Platelet Count 118 T/CUMM (130-400); Red Blood Count 3.08 MC/CUMM (3.8-5.5); Red Cell Distribution Width 15.7 % (9.3-17.3); White Blood Count 6.9 T/CUMM (4-12)
[2021-03-13 06:40] LABS: Calcium 7.5 MG/DL (8.5-10.1); Osmolality,Calculated 286.8 MOS/KG (273-304); Potassium 4.2 MMOL/L (3.5-5.1)
[2021-03-13 06:45] LABS: Alanine Aminotransferase 23 U/L (13-56); Albumin 2.7 G/DL (3.4-5.0); Alkaline Phosphatase 75 U/L (45-117); Aspartate Amino Transferase 30 U/L (0-37); Bilirubin,Indirect 0.3 MG/DL (0.0-1.0); Blood Urea Nitrogen 38 MG/DL (7-18); Calcium 7.6 MG/DL (8.5-10.1); Carbon Dioxide 28 MMOL/L (21-32); Estimated Glom Filtration Rate 10 ML/MIN; Glucose 178 MG/DL (74-106); Osmolality,Calculated 285.8 MOS/KG (273-304); Potassium 4.2 MMOL/L (3.5-5.1); Sodium 137 MMOL/L (136-145); Total Protein 6.3 G/DL (6.4-8.2)
[2021-03-13] MEDS: INSULIN REGULAR 100 UNIT/ML SUBCUT SCH ×4 (08:39→23:10)
[2021-03-13] MEDS: ASPIRIN CHEW 81 MG TABLET PO SCH (08:40)
[2021-03-13] MEDS: PANTOPRAZOLE 40 MG TABLET PO SCH (08:40)
[2021-03-13] MEDS: FERROUS SULFATE 325 MG TABLET PO SCH (08:40)
[2021-03-13] MEDS: DOCUSATE SODIUM 100 MG CAPSULE PO SCH (08:40)
[2021-03-13] MEDS: CHLORHEXIDINE 0.12% ORAL RINSE 60 ML BOTTLE SWISH/SPIT SCH ×2 (08:40→23:11)
[2021-03-13] MEDS: carvediloL 6.25 MG TABLET PO SCH ×2 (08:40→16:21)
[2021-03-13] MEDS: ATORVASTATIN 40 MG TABLET PO SCH (23:08)
[2021-03-14 04:48] LABS: Basophils % 0.4 % (0.0-0.8); Eosinophils # 0.4 10*3/uL (0.0-0.87); Eosinophils % 5.2 % (0.00-10.9); Hematocrit 30.5 VOL% (35.7-47.0); Hemoglobin 9.4 GM/DL (12.0-16.0); Immature Granulocytes % 0.5 %; Immature Granulocytes Absolute 0.04 #; Lymphocytes # 1.2 10*3/uL (1.4-4.0); Lymphocytes % 14.6 % (21.3-54.2); Mean Corpuscular HGB Conc 30.8 GM/DL (32-36); Mean Platelet Volume 9.9 FL (9.6-12.0); Monocytes % 10.3 % (1.7-12.7); Platelet Count 131 T/CUMM (130-400); Red Blood Count 3.05 MC/CUMM (3.8-5.5); Red Cell Distribution Width 15.6 % (9.3-17.3); White Blood Count 7.9 T/CUMM (4-12)
[2021-03-14 05:07] LABS: Alanine Aminotransferase 21 U/L (13-56); Albumin 2.7 G/DL (3.4-5.0); Alkaline Phosphatase 99 U/L (45-117); Aspartate Amino Transferase 22 U/L (0-37); Bilirubin,Total < 0.39 MG/DL (0.2-1.0); Blood Urea Nitrogen 46 MG/DL (7-18); Calcium 7.2 MG/DL (8.5-10.1); Carbon Dioxide 27 MMOL/L (21-32); Estimated Glom Filtration Rate 8 ML/MIN; Glucose 128 MG/DL (74-106); Osmolality,Calculated 286.8 MOS/KG (273-304); Potassium 4.1 MMOL/L (3.5-5.1); Sodium 137 MMOL/L (136-145); Total Protein 6.1 G/DL (6.4-8.2)
[2021-03-14 05:11] LABS: Bilirubin,Indirect 0.3 MG/DL (0.0-1.0)
[2021-03-14] MEDS: INSULIN REGULAR 100 UNIT/ML SUBCUT SCH ×4 (08:00→21:17)
[2021-03-14] MEDS: carvediloL 6.25 MG TABLET PO SCH ×2 (14:10→17:29)
[2021-03-14] MEDS: FERROUS SULFATE 325 MG TABLET PO SCH (14:12)
[2021-03-14] MEDS: DOCUSATE SODIUM 100 MG CAPSULE PO SCH (14:30)
[2021-03-14] MEDS: ASPIRIN CHEW 81 MG TABLET PO SCH (14:30)
[2021-03-14] MEDS: CHLORHEXIDINE 0.12% ORAL RINSE 60 ML BOTTLE SWISH/SPIT SCH ×2 (14:31→21:22)
[2021-03-14] MEDS: PANTOPRAZOLE 40 MG TABLET PO SCH (14:31)
[2021-03-14] MEDS: ACETAMINOPHEN 325 MG TABLET PO PRN ×2 (16:37→21:16)
[2021-03-14] MEDS: ATORVASTATIN 40 MG TABLET PO SCH (21:16)
[2021-03-15 05:22] LABS: Basophils % 0.4 % (0.0-0.8); Eosinophils # 0.4 10*3/uL (0.0-0.87); Eosinophils % 5.4 % (0.00-10.9); Hematocrit 29.1 VOL% (35.7-47.0); Hemoglobin 9.1 GM/DL (12.0-16.0); Immature Granulocytes % 0.8 %; Immature Granulocytes Absolute 0.06 #; Lymphocytes % 14.1 % (21.3-54.2); Mean Corpuscular HGB Conc 31.3 GM/DL (32-36); Mean Corpuscular Volume 101.7 FL (87-102); Mean Platelet Volume 10.1 FL (9.6-12.0); Monocytes % 10.8 % (1.7-12.7); Neutrophils % 68.5 % (38.7-73.9); Platelet Count 128 T/CUMM (130-400); Red Blood Count 2.86 MC/CUMM (3.8-5.5); Red Cell Distribution Width 15.7 % (9.3-17.3); White Blood Count 7.4 T/CUMM (4-12)
[2021-03-15 05:37] LABS: Calcium 7.4 MG/DL (8.5-10.1); Osmolality,Calculated 279.1 MOS/KG (273-304); Potassium 3.8 MMOL/L (3.5-5.1)
[2021-03-15] MEDS: INSULIN REGULAR 100 UNIT/ML SUBCUT SCH ×4 (07:52→21:13)
[2021-03-15] MEDS: FERROUS SULFATE 325 MG TABLET PO SCH (08:44)
[2021-03-15] MEDS: DOCUSATE SODIUM 100 MG CAPSULE PO SCH (08:44)
[2021-03-15] MEDS: ASPIRIN CHEW 81 MG TABLET PO SCH (08:44)
[2021-03-15] MEDS: PANTOPRAZOLE 40 MG TABLET PO SCH (08:45)
[2021-03-15] MEDS: carvediloL 6.25 MG TABLET PO SCH ×2 (08:45→16:18)
[2021-03-15] MEDS: CHLORHEXIDINE 0.12% ORAL RINSE 60 ML BOTTLE SWISH/SPIT SCH ×2 (08:46→21:13)
[2021-03-15] MEDS ORDERED: INSULIN GLARGINE 100 UNIT/ML SUBCUT SCH (21:00)
[2021-03-15] MEDS: ATORVASTATIN 40 MG TABLET PO SCH (21:12)
[2021-03-15] MEDS: ACETAMINOPHEN 325 MG TABLET PO PRN (21:12)
[2021-03-16 05:04] LABS: Basophils % 0.4 % (0.0-0.8); Eosinophils # 0.3 10*3/uL (0.0-0.87); Eosinophils % 4.6 % (0.00-10.9); Hemoglobin 9.2 GM/DL (12.0-16.0); Immature Granulocytes % 0.7 %; Immature Granulocytes Absolute 0.05 #; Lymphocytes # 1.1 10*3/uL (1.4-4.0); Lymphocytes % 14.3 % (21.3-54.2); Mean Corpuscular HGB Conc 32.9 GM/DL (32-36); Mean Corpuscular Volume 98.6 FL (87-102); Mean Platelet Volume 10.2 FL (9.6-12.0); Monocytes % 8.3 % (1.7-12.7); Neutrophils % 71.7 % (38.7-73.9); Platelet Count 143 T/CUMM (130-400); Red Blood Count 2.84 MC/CUMM (3.8-5.5); Red Cell Distribution Width 15.9 % (9.3-17.3); White Blood Count 7.3 T/CUMM (4-12)
[2021-03-16 05:34] LABS: Alanine Aminotransferase 23 U/L (13-56); Albumin 2.4 G/DL (3.4-5.0); Alkaline Phosphatase 88 U/L (45-117); Aspartate Amino Transferase 16 U/L (0-37); Bilirubin,Indirect 0.3 MG/DL (0.0-1.0); Blood Urea Nitrogen 42 MG/DL (7-18); Calcium 7.4 MG/DL (8.5-10.1); Carbon Dioxide 26 MMOL/L (21-32); Estimated Glom Filtration Rate 8 ML/MIN; Glucose 106 MG/DL (74-106); Osmolality,Calculated 287.5 MOS/KG (273-304); Sodium 139 MMOL/L (136-145); Total Protein 5.9 G/DL (6.4-8.2)
[2021-03-16] MEDS: INSULIN REGULAR 100 UNIT/ML SUBCUT SCH ×3 (08:07→15:37)
[2021-03-16] MEDS: PANTOPRAZOLE 40 MG TABLET PO SCH (08:28)
[2021-03-16] MEDS: carvediloL 6.25 MG TABLET PO SCH (08:28)
[2021-03-16] MEDS: ASPIRIN CHEW 81 MG TABLET PO SCH (08:28)
[2021-03-16] MEDS: DOCUSATE SODIUM 100 MG CAPSULE PO SCH (08:28)
[2021-03-16] MEDS: FERROUS SULFATE 325 MG TABLET PO SCH (08:28)
[2021-03-16] MEDS: CHLORHEXIDINE 0.12% ORAL RINSE 60 ML BOTTLE SWISH/SPIT SCH (08:28)
[2021-03-16] MEDS: ONDANSETRON 4 MG/2 ML VIAL IV PRN (10:40)
[2021-03-16] MEDS: ACETAMINOPHEN 325 MG TABLET PO PRN (14:36)
[2021-03-16 15:21] VITALS: BP 140/50
== END 2021-03-16 17:23 | disposition home health service (06) | DRG 235 ==
LOC: SUATTDRO 07:03 → INTOOBSV 07:03 → N.2E 07:03 → N.TELEN 07:19 → SUATTDRO 03-05 12:32 → N.CVR 03-08 12:48 → N.ICU 03-09 16:20 → N.TELES 03-12 11:46
PROVIDERS: ADMIT Internal Medicine

== ENCOUNTER 2021-03-28 16:19 | Observation (INO) ==
[2021-03-28] MEDS ORDERED: ENOXAPARIN 100 MG/ML SYRINGE SUBCUT STA (16:43)
[2021-03-28] MEDS ORDERED: ASPIRIN 325 MG TABLET PO STA (16:43)
[2021-03-28 17:58] LABS: Basophils # 0.1 10*3/uL (0.0-0.2); Basophils % 0.6 % (0.0-0.8); Eosinophils # 0.2 10*3/uL (0.0-0.87); Eosinophils % 2.4 % (0.00-10.9); Hematocrit 28.4 VOL% (35.7-47.0); Hemoglobin 9.2 GM/DL (12.0-16.0); Immature Granulocytes % 0.4 %; Immature Granulocytes Absolute 0.03 #; Lymphocytes # 1.1 10*3/uL (1.4-4.0); Lymphocytes % 14.3 % (21.3-54.2); Mean Corpuscular HGB Conc 32.4 GM/DL (32-36); Mean Corpuscular Volume 96.6 FL (87-102); Mean Platelet Volume 9.3 FL (9.6-12.0); Monocytes % 8.1 % (1.7-12.7); Neutrophils % 74.2 % (38.7-73.9); Platelet Count 225 T/CUMM (130-400); Red Blood Count 2.94 MC/CUMM (3.8-5.5); Red Cell Distribution Width 14.8 % (9.3-17.3); White Blood Count 7.8 T/CUMM (4-12)
[2021-03-28 18:20] LABS: Alanine Aminotransferase 20 U/L (13-56); Albumin 2.8 G/DL (3.4-5.0); Alkaline Phosphatase 148 U/L (45-117); Aspartate Amino Transferase 14 U/L (0-37); Bilirubin,Total < 0.39 MG/DL (0.2-1.0); Blood Urea Nitrogen 20 MG/DL (7-18); Calcium 8.4 MG/DL (8.5-10.1); Carbon Dioxide 34 MMOL/L (21-32); Estimated Glom Filtration Rate 13 ML/MIN; Glucose 192 MG/DL (74-106); Osmolality,Calculated 280.8 MOS/KG (273-304); Potassium 3.2 MMOL/L (3.5-5.1); Sodium 137 MMOL/L (136-145); Total Protein 7.4 G/DL (6.4-8.2)
[2021-03-28] MEDS ORDERED: GLUCAGON 1 MG VIAL IM PRN (19:30)
[2021-03-28] MEDS ORDERED: DEXTROSE 50% 25 GM/50 ML VIAL IV PRN (19:30)
[2021-03-28] MEDS ORDERED: ONDANSETRON 4 MG/2 ML VIAL IV PRN (19:30)
[2021-03-28] MEDS ORDERED: ACETAMINOPHEN 325 MG TABLET PO PRN (19:30)
[2021-03-28] MEDS: INSULIN REGULAR 100 UNIT/ML SUBCUT SCH (22:49)
[2021-03-29 06:28] LABS: Basophils % 0.8 % (0.0-0.8); Eosinophils # 0.3 10*3/uL (0.0-0.87); Eosinophils % 5.3 % (0.00-10.9); Hematocrit 28.9 VOL% (35.7-47.0); Immature Granulocytes % 0.6 %; Immature Granulocytes Absolute 0.03 #; Lymphocytes # 1.2 10*3/uL (1.4-4.0); Lymphocytes % 24.8 % (21.3-54.2); Mean Corpuscular HGB Conc 31.1 GM/DL (32-36); Mean Platelet Volume 9.1 FL (9.6-12.0); Monocytes % 10.6 % (1.7-12.7); Neutrophils % 57.9 % (38.7-73.9); Platelet Count 197 T/CUMM (130-400); Red Blood Count 2.89 MC/CUMM (3.8-5.5); Red Cell Distribution Width 14.9 % (9.3-17.3); White Blood Count 4.9 T/CUMM (4-12)
[2021-03-29 06:49] LABS: Albumin 2.7 G/DL (3.4-5.0); Bilirubin,Total 0.4 MG/DL (0.2-1.0); Calcium 8.6 MG/DL (8.5-10.1); Osmolality,Calculated 281.7 MOS/KG (273-304); Potassium 3.7 MMOL/L (3.5-5.1); Total Protein 7.4 G/DL (6.4-8.2)
[2021-03-29] MEDS ORDERED: oxyCODONE/ACETAMINOPHEN 5-325 MG TABLET PO PRN (07:39)
[2021-03-29] MEDS ORDERED: hydrALAZINE 20 MG/1 ML VIAL IV PRN (07:41)
[2021-03-29] MEDS ORDERED: carvediloL 6.25 MG TABLET PO SCH (08:00)
[2021-03-29] MEDS ORDERED: IRON PO SCH (09:00)
[2021-03-29] MEDS ORDERED: PANTOPRAZOLE 40 MG TABLET PO SCH (09:00)
[2021-03-29] MEDS ORDERED: ASPIRIN 325 MG TABLET PO SCH (09:00)
[2021-03-29] MEDS ORDERED: FERRIC CITRATE 210 MG PO SCH (09:00)
[2021-03-29] MEDS: SEVELAMER CARBONATE 800 MG TABLET PO SCH ×2 (10:19→13:57)
[2021-03-29] MEDS: INSULIN REGULAR 100 UNIT/ML SUBCUT SCH ×2 (10:19→13:58)
[2021-03-29] MEDS ORDERED: ENOXAPARIN 80 MG/0.8 ML SYRINGE SUBCUT SCH (16:00)
[2021-03-29 16:44] VITALS: BP 155/67
[2021-03-29] MEDS ORDERED: ATORVASTATIN 40 MG TABLET PO SCH (21:00)
[2021-03-30] MEDS ORDERED: ENOXAPARIN 30 MG/0.3 ML SYRINGE SUBCUT SCH (09:00)
== END 2021-03-29 16:53 | disposition home or self-care (01) ==
LOC: EDUNIT# → N.EDINP 16:19 → N.ED 16:19 → N.TELES 21:18
PROVIDERS: ADMIT Internal Medicine; ATTEND Internal Medicine

== ENCOUNTER 2021-08-03 18:17 | Inpatient (IN) ==
[2021-08-03] MEDS ORDERED: DEXTROSE 50% 25 GM/50 ML VIAL IV PRN ×2 (22:06)
[2021-08-03] MEDS ORDERED: ACETAMINOPHEN 325 MG TABLET PO PRN (22:06)
[2021-08-03] MEDS ORDERED: ONDANSETRON 4 MG/2 ML VIAL IV PRN (22:06)
[2021-08-03] MEDS ORDERED: GLUCAGON 1 MG VIAL IM PRN ×2 (22:06)
[2021-08-03 23:30] LABS: Basophils % 0.3 % (0.0-0.8); Eosinophils % 0.1 % (0.00-10.9); Hematocrit 27.9 VOL% (35.7-47.0); Hemoglobin 8.7 GM/DL (12.0-16.0); Immature Granulocytes % 0.7 %; Immature Granulocytes Absolute 0.07 #; Lymphocytes # 0.5 10*3/uL (1.4-4.0); Lymphocytes % 5.3 % (21.3-54.2); Mean Corpuscular HGB Conc 31.2 GM/DL (32-36); Mean Corpuscular Volume 99.6 FL (87-102); Mean Platelet Volume 10.2 FL (9.6-12.0); Monocytes % 7.4 % (1.7-12.7); Neutrophils % 86.2 % (38.7-73.9); Platelet Count 160 T/CUMM (130-400); Red Cell Distribution Width 15.2 % (9.3-17.3); White Blood Count 10.2 T/CUMM (4-12)
[2021-08-03 23:42] LABS: PT Patient Result 11.5 SECS (10.5-12.0); Partial Thromboplastin Time 28.2 SECS (23.8-32.1)
[2021-08-03 23:51] LABS: Alanine Aminotransferase 10 U/L (13-56); Albumin 2.6 G/DL (3.4-5.0); Alkaline Phosphatase 80 U/L (45-117); Aspartate Amino Transferase 7 U/L (0-37); Bilirubin,Total < 0.39 MG/DL (0.20-1.00); Blood Urea Nitrogen 31 MG/DL (7-18); Calcium 8.3 MG/DL (8.5-10.1); Carbon Dioxide 35 MMOL/L (21-32); Estimated Glom Filtration Rate 7 ML/MIN; Glucose 227 MG/DL (74-106); HDL Cholesterol 55 MG/DL (40-60); Potassium 3.4 MMOL/L (3.5-5.1); Risk Ratio 2.25; Sodium 136 MMOL/L (136-145); Total Protein 6.7 G/DL (6.4-8.2); Triglycerides 174 MG/DL (2-150); VLDL Cholesterol 34.8 MG/DL
[2021-08-04] MEDS: PIPERACILLIN/TAZOBACTAM 3,375 MG in SODIUM CHLORIDE 0.9% 100 ML IV SCH ×2 (00:27→16:45)
[2021-08-04] MEDS ORDERED: PIPERACILLIN/TAZOBACTAM 3.375 MG in SODIUM CHLORIDE 0.9% 100 ML IV SCH (01:00)
[2021-08-04] MEDS ORDERED: POTASSIUM CHLORIDE 20 MEQ TABLET PO ONE (08:37)
[2021-08-04] MEDS: carvediloL 3.125 MG TABLET PO SCH ×2 (08:40→16:50)
[2021-08-04] MEDS: SEVELAMER CARBONATE 800 MG TABLET PO SCH ×3 (08:40→16:51)
[2021-08-04] MEDS: INSULIN REGULAR 100 UNIT/ML SUBCUT SCH ×2 (08:42→16:45)
[2021-08-04] MEDS ORDERED: RIVAROXABAN 2.5 MG TABLET PO SCH (09:00)
[2021-08-04] MEDS ORDERED: DOCUSATE SODIUM 100 MG CAPSULE PO SCH (09:00)
[2021-08-04] MEDS ORDERED: ASPIRIN EC 81 MG TABLET PO SCH (09:00)
[2021-08-04] MEDS ORDERED: PANTOPRAZOLE 40 MG TABLET PO SCH (09:00)
[2021-08-04] MEDS ORDERED: EPOETIN ALFA-EPBX 10,000 UNIT/ML VIAL IV PRN (11:15)
[2021-08-04 11:44] VITALS: BP 118/45
[2021-08-04] MEDS ORDERED: calcitrioL 0.25 MCG CAPSULE PO SCH (19:00)
[2021-08-04] MEDS ORDERED: ATORVASTATIN 40 MG TABLET PO SCH (21:00)
[2021-08-04] MEDS ORDERED: INSULIN REGULAR 100 UNIT/ML SUBCUT SCH (21:00)
[2021-08-04] MEDS ORDERED: EZETIMIBE 10 MG TABLET PO SCH (21:00)
== END 2021-08-04 17:05 | disposition home or self-care (01) | DRG 602 ==
LOC: N.TELEN 20:54 → SUATTDRO 20:54
PROVIDERS: ADMIT Internal Medicine; ATTEND Internal Medicine